=== PATIENT | male | born 1950 | race Caucasian/White ===

== ENCOUNTER 2018-10-18 09:27 | Day surgery (SDC) | payer MEDICARE, BC ==
[~2018-10-18 09:27] MED LIST: Bupivacaine 0.5% 50 ML MDV ONE
[2018-10-18] MEDS: Sodium Chloride 0.9% 1,000 ML IV SCH (10:00)
[2018-10-18] MEDS ORDERED: Propofol 200 MG/20 ML SDV ONE (10:15)
[2018-10-18] MEDS ORDERED: fentaNYL 100 MCG/2 ML SDV ONE (10:16)
[2018-10-18] MEDS ORDERED: Midazolam 1 MG/ML 2 ML SDV ONE (10:16)
[2018-10-18] MEDS ORDERED: Bupivacaine 0.5% 30 ML SDV ONE (10:17)
[2018-10-18 12:40] VITALS: BP 136/90
--- NOTE | 2018-10-18 15:06 | OR ---
DATE OF PROCEDURE: 10/18/2018 PROCEDURE: Ray amputation, right 3rd toe. PREOPERATIVE DIAGNOSIS: Diabetic osteomyelitis. POSTOPERATIVE DIAGNOSIS: Diabetic osteomyelitis. COMPLICATION: None. CHRONOMETER ASSEMBLER: None. ANESTHESIA: Local/MAC. RISKS: Risks, benefits, alternatives, and limitations including, but not limited to infection, bleeding, open wounds. We also discussed the fact that the osteomyelitis might have a false-positive or false-negative margin requiring further revisional surgery. PROCEDURE IN DETAIL: The patient was placed in supine position. DICTATION ENDS HERE Amrit Dykes MD /[id number]
--- NOTE | 2018-10-21 14:38 | OR ---
DATE OF PROCEDURE: 10/18/2018 PROCEDURES: 1. Ray amputation, right 3rd toe. 2. Debridement of 4th toe amputation site (1103). 3. Formation of direct type pedicle graft (23957). COMPLICATIONS: None. CLOTH SHEARER: None. PREOPERATIVE DIAGNOSIS: Diabetic osteomyelitis with open wound. POSTOPERATIVE DIAGNOSIS: Diabetic osteomyelitis with open wound. SURGEON: Amrit Dykes MD INDICATION: A pleasant 68-year-old male who underwent a 4th toe amputation [place]. Unfortunately, this did not heal and the patient subsequently developed an osteomyelitis in the adjoining toe. RISKS: Risks, benefits, alternatives, and limitations including, but not limited to infection, bleeding, and requirement for reoperation due to false-positive or false-negative with respect to the osteomyelitic margin. The patient understands these risks and wished to proceed. PROCEDURE IN DETAIL: The patient was placed in supine position. Using a standard ray type amputation, the right 3rd toe was circumnavigated with a 15 blade. This was carried down with electrocautery to the bone proper. This was then transected without difficulty. The ray was then extended in a distal to proximal margin approximately 1.5 to 2 cm. The metatarsal head was readily identified. This would be amputated using a [employer] total power soft system. The cortex was then removed. The associated pad, ligaments, tendon, etc., were transected under tension. Any bleeding controlled by electrocautery. This was then thoroughly irrigated. The debridement site at the 4th toe was then performed using a 15 blade. Then, a pedicle type flap was then moved into position over the 3rd and 4th toe amputation sites. This was then performed in a rhomboid type fashion. This was then approximated with 3-0 Vicryl and then sutured in with 4-0 Prolene with an interrupted running fashion also using a three-point horizontal mattress suture system. A single piece of quarter- inch iodoform gauze was then placed in this without difficulty. Dressings were applied. The patient tolerated the procedure well. Amrit Dykes MD /[id number]
== END 2018-10-18 12:46 | disposition home or self-care (01) ==
LOC: JP.SDS 09:27
PROVIDERS: ATTEND Surgery
DX: E11.69 Type 2 diabetes mellitus with other specified complication (principal); M86.171 Other acute osteomyelitis, right ankle and foot; E11.40 Type 2 diabetes mellitus with diabetic neuropathy, unspecified; I25.10 Atherosclerotic heart disease of native coronary artery without angina pectoris; I25.9 Chronic ischemic heart disease, unspecified; I25.2 Old myocardial infarction; Z89.429 Acquired absence of other toe(s), unspecified side; Z87.891 Personal history of nicotine dependence
CPT/HCPCS: 15004; 15574; 28820; 87070; 87075; 87077; 87186; 87205; 88305; 88311; J2250; J2704; J3010; J3490; J7030

== ENCOUNTER 2020-06-09 12:42 | Inpatient (IN) | payer MEDICARE, BC ==
[2020-06-09] MEDS ORDERED: Acetaminophen 325 MG Tab PO PRN (14:27)
[2020-06-09] MEDS ORDERED: Sodium Chloride 0.9% 10 ML Syringe FLUSH PRN ×2 (14:28→18:57)
[2020-06-09] MEDS ORDERED: Lactated Ringers 1,000 ML IV ONE (14:30)
[2020-06-09] MEDS ORDERED: Piperacillin/Tazobactam 4.5 GM in Sodium Chloride 0.9% 100 ML IV SCH (14:30)
--- NOTE | 2020-06-09 14:33 | EDM.PDOC ---
ED HPI GENERAL MEDICAL PROBLEM - General Chief Complaint: General Stated Complaint: POSSIBLE INFECTION IN FOOT,FEVER Time Seen by Provider: 06/09/20 14:21 Source of Information: Reports: Patient, Family, RN Notes Reviewed History Limitations: Reports: No Limitations - History of Present Illness INITIAL COMMENTS - FREE TEXT/NARRATIVE: 69-year-old gentleman presents emergency department a complaint of fever chills weakness and some redness that developed on his left foot he has a known history of diabetes mellitus type 2 as well as vascular pathology he has lost all of his toes on his left foot he does have an open ulcer that he has been dealing with for a couple of months he noticed the redness and warmth all really developed over the last 12 hours Left Feet Pain Score (Numeric/FACES): 2 - Related Data Allergies Allergy/AdvReac Type Severity Reaction Status Date / Time No Known Allergies Allergy Verified 06/03/19 11:14 Home Meds: Home Meds Cyanocobalamin (Vitamin B-12) [Vitamin B-12] 1,000 mcg PO DAILY 10/19/14 [History] Lactobacillus Acidophilus [Acidophilus] 1 each PO TID 10/19/14 [History] Lisinopril 2.5 mg PO DAILY 10/19/14 [History] Magnesium 400 mg PO DAILY 10/19/14 [History] Cholecalciferol (Vitamin D3) [Vitamin D3] 1,000 units PO DAILY 10/11/18 [History] Aspirin [Adult Low Dose Aspirin EC] 81 mg PO BID 10/18/18 [History] Gabapentin [Neurontin] 100 mg PO BID 11/07/18 [History] Acetaminophen [Acetaminophen Extra Strength] 500 mg PO Q6H 06/03/19 [History] Ascorbic Acid/Bioflavonoids [C 1,731-[id number]-VI] 1 each PO DAILY 06/03/19 [History] Ferrous Sulfate 325 mg PO DAILY 06/03/19 [History] Multivitamin with Folic Acid [One Daily Essential Tablet] 800 mcg PO DAILY 06/03/19 [History] Vitamin B Complex [Balanced B-50] 1 each PO DAILY 06/03/19 [History] Gabapentin [Neurontin] 300 mg PO BEDTIME 06/09/20 [History] Metoprolol Succinate 25 mg PO DAILY 06/09/20 [History] Pantoprazole [Protonix] 20 mg PO DAILY 06/09/20 [History] cephALEXin [Cephalexin] 500 mg PO TID 06/09/20 [History] Past Medical History HEENT History: Reports: Cataract, Impaired Vision, Other (See Below) Other HEENT History: Bleed behind right eye Cardiovascular History: Reports: CAD, RI, Stents Gastrointestinal History: Reports: Cholelithiasis, GERD, PUD Musculoskeletal History: Reports: Back Pain, Chronic, Osteoarthritis Endocrine/Metabolic History: Reports: Diabetes, Type II Hematologic History: Reports: Blood Transfusion(s) - Infectious Disease History Infectious Disease History: Reports: Chicken Pox, Measles, Mumps - Past Surgical History HEENT Surgical History: Reports: Cataract Surgery, Laser Surgery Cardiovascular Surgical History: Reports: None GI Surgical History: Reports: Bariatric Procedure, Cholecystectomy, Colonoscopy, EGD, Other (See Below) Other GI Surgeries/Procedures: Dexcom 5 blood sugar monitor left abdomen. Colon resection Endocrine Surgical History: Reports: None Neurological Surgical History: Reports: Spinal Fusion, Thoracic Spine Musculoskeletal Surgical History: Reports: Carpal Tunnel, Other (See Below) Other Musculoskeletal Surgeries/Procedures:: Left trigger finger Social & Family History - Tobacco Use Tobacco Use Status *Q: Never Tobacco User - Caffeine Use Caffeine Use: Reports: Coffee ED ROS GENERAL - Review of Systems Review Of Systems: See Below Constitutional: Reports: Fever, Chills, Weakness, Fatigue HEENT: Reports: No Symptoms Respiratory: Reports: No Symptoms Cardiovascular: Reports: No Symptoms GI/Abdominal: Reports: No Symptoms Skin: Reports: Rash, Erythema, Wound ED EXAM, GENERAL - Physical Exam Exam: See Below Free Text/Narrative:: Examination of the left foot there is an erythematous patch encompasses half of the foot and partially up to the ankle on the lateral aspect he does have a chronic wound about the size of $0.50 piece with foul odor present Exam Limited By: No Limitations General Appearance: Alert, WD/WN, No Apparent Distress Respiratory/Chest: No Respiratory Distress, Lungs Clear, Normal Breath Sounds, No Accessory Muscle Use, Chest Non-Tender Cardiovascular: Regular Rate, Rhythm, No Murmur GI/Abdominal: Soft, Non-Tender Course - Vital Signs Last Recorded V/S: Last Vital Signs Temp 101.4 F H 06/09/20 15:27 Pulse 81 06/09/20 13:24 Resp 18 06/09/20 13:24 BP 129/66 06/09/20 13:24 Pulse Ox 95 06/09/20 13:24 - Orders/Labs/Meds Orders: Active Orders 24 hr Category Date Time Status CORONAVIRUS COVID-19 KAREN [MOLEC] Routine Lab 06/09/20 15:23 Received CULTURE BLOOD [BC] Urgent Lab 06/09/20 15:26 Received CULTURE BLOOD [BC] Urgent Lab 06/09/20 15:35 Received Acetaminophen [TylenoL] Med 06/09/20 14:27 Active 650 mg PO Q4H PRN Piperacillin/Tazobactam/Dext [Zosyn in Dextrose Iso- Med 06/09/20 15:30 Active Osmotic] 4.5 gm Premix Bag 1 bag IV Q6H Sodium Chloride 0.9% [Saline Flush] Med 06/09/20 14:28 Active 10 ml FLUSH ASDIRECTED PRN Vancomycin Med 06/09/20 15:00 Active 1 gm IV .PHARMACY TO DOSE Vancomycin 1.3 gm Med 06/10/20 04:00 Active Sodium Chloride 0.9% [Normal Saline] 250 ml IV Q12H Vancomycin 1.5 gm Med 06/09/20 16:00 Active Sodium Chloride 0.9% [Normal Saline] 250 ml IV ONETIME Blood Culture x2 Reflex Set [OM.PC] Urgent Oth 06/09/20 14:28 Ordered Isolation [COMM] Stat Oth 06/09/20 14:27 Ordered Saline Lock Insert [OM.PC] Stat Oth 06/09/20 14:28 Ordered Severe Sepsis Onset Time [OM.PC] Stat Oth 06/09/20 14:28 Ordered Medication Orders Acetaminophen (Tylenol) 650 mg PO Q4H PRN PRN Reason: Fever Greater Than 101 Last Admin: 06/09/20 15:27 Dose: 650 mg Documented by: PARKER Piperacillin/Tazobactam/ (Dextrose 4.5 gm/ Premix) 100 mls @ 200 mls/hr IV Q6H AKI Last Admin: 06/09/20 15:28 Dose: 200 mls/hr Documented by: PARKER Vancomycin HCl 1.5 gm/ Sodium (Chloride) 250 mls @ 175 mls/hr IV ONETIME ONE Stop: 06/09/20 17:25 Last Admin: 06/09/20 16:13 Dose: 175 mls/hr Documented by: PARKER Vancomycin HCl 1.3 gm/ Sodium (Chloride) 250 mls @ 175 mls/hr IV Q12H [facility] Sodium Chloride (Saline Flush) 10 ml FLUSH ASDIRECTED PRN PRN Reason: Keep Vein Open Last Admin: 06/09/20 15:28 Dose: 10 ml Documented by: PARKER Vancomycin HCl (Vancomycin) 1 gm IV .PHARMACY TO DOSE AKI Labs: Laboratory Tests 06/09/20 06/09/20 06/09/20 Range/Units 14:51 15:26 15:26 WBC 15.2 H (4.5-11.0) K/uL RBC 4.18 L (4.30-5.90) M/uL Hgb 13.3 (12.0-15.0) g/dL Hct 39.3 L (40.0-54.0) % MCV 94 (80-98) fL MCH 32 H (27-31) pg MCHC 34 (32-36) % Plt Count 258 (150-400) K/uL Neut % (Auto) 95 H (36-66) % Lymph % (Auto) 2 L (24-44) % [place] % (Auto) 4 (2-6) % Eos % (Auto) 0 L (2-4) % Baso % (Auto) 0 (0-1) % PT 10.9 (9.5-12.0) sec INR 1.00 (0.80-1.20) Sodium (140-148) mmol/L Potassium (3.6-5.2) mmol/L Chloride (100-108) mmol/L Carbon Dioxide (21-32) mmol/L Anion Gap (5.0-14.0) mmol/L BUN (7-18) mg/dL Creatinine (0.8-1.3) mg/dL Est Cr Clr Drug Dosing mL/min Estimated GFR (MDRD) (>60) Glucose (74-106) mg/dL Lactic Acid (0.4-2.0) mmol/L Calcium (8.5-10.1) mg/dL Total Bilirubin (0.2-1.0) mg/dL Direct Bilirubin (0.0-0.2) mg/dL Indirect Bilirubin AST (15-37) U/L ALT (12-78) U/L Alkaline Phosphatase (46-116) U/L Lactate Dehydrogenase (85-227) U/L C-Reactive Protein (0.0-0.3) mg/dL Total Protein (6.4-8.2) g/dL Albumin (3.4-5.0) g/dL Globulin (2.3-3.5) g/dL Albumin/Globulin Ratio (1.2-2.2) Procalcitonin ng/mL SARS CoV-2 RNA Rapid KAREN Negative 06/09/20 06/09/20 06/09/20 Range/Units 15:26 15:26 15:26 WBC (4.5-11.0) K/uL RBC (4.30-5.90) M/uL Hgb (12.0-15.0) g/dL Hct (40.0-54.0) % MCV (80-98) fL MCH (27-31) pg MCHC (32-36) % Plt Count (150-400) K/uL Neut % (Auto) (36-66) % Lymph % (Auto) (24-44) % [place] % (Auto) (2-6) % Eos % (Auto) (2-4) % Baso % (Auto) (0-1) % PT (9.5-12.0) sec INR (0.80-1.20) Sodium 134 L (140-148) mmol/L Potassium 3.7 (3.6-5.2) mmol/L Chloride 99 L (100-108) mmol/L Carbon Dioxide 24 (21-32) mmol/L Anion Gap 14.7 H (5.0-14.0) mmol/L BUN 16 D (7-18) mg/dL Creatinine 1.2 (0.8-1.3) mg/dL Est Cr Clr Drug Dosing 64.67 mL/min Estimated GFR (MDRD) > 60 (>60) Glucose 82 (74-106) mg/dL Lactic Acid 1.4 (0.4-2.0) mmol/L Calcium 9.0 (8.5-10.1) mg/dL Total Bilirubin 1.5 H (0.2-1.0) mg/dL Direct Bilirubin 0.34 H (0.0-0.2) mg/dL Indirect Bilirubin 1.16 AST 34 D (15-37) U/L ALT 30 (12-78) U/L Alkaline Phosphatase 61 (46-116) U/L Lactate Dehydrogenase 170 (85-227) U/L C-Reactive Protein 5.62 H (0.0-0.3) mg/dL Total Protein 6.8 (6.4-8.2) g/dL Albumin 3.2 L (3.4-5.0) g/dL Globulin 3.6 H (2.3-3.5) g/dL Albumin/Globulin Ratio 0.9 L (1.2-2.2) Procalcitonin 29.88 H* ng/mL SARS CoV-2 RNA Rapid KAREN Meds: Medications Generic Name Dose Route Start Last Admin Trade Name Freq PRN Reason Stop Dose Admin Acetaminophen 650 mg 06/09/20 14:27 06/09/20 15:27 Tylenol PO 650 mg Q4H PRN Administration Fever Greater Than 101 Piperacillin/Tazobactam/ 100 mls @ 200 mls/hr 06/09/20 15:30 06/09/20 15:28 Dextrose 4.5 gm/ Premix IV 200 mls/hr Q6H AKI Administration Vancomycin HCl 1.5 gm/ Sodium 250 mls @ 175 mls/hr 06/09/20 16:00 06/09/20 16:13 Chloride IV 06/09/20 17:25 175 mls/hr ONETIME ONE Administration Vancomycin HCl 1.3 gm/ Sodium 250 mls @ 175 mls/hr 06/10/20 04:00 Chloride IV Q12H AKI Sodium Chloride 10 ml 06/09/20 14:28 06/09/20 15:28 Saline Flush FLUSH 10 ml ASDIRECTED PRN Administration Keep Vein Open Vancomycin HCl 1 gm 06/09/20 15:00 Vancomycin IV .PHARMACY TO DOSE AKI Discontinued Medications Generic Name Dose Route Start Last Admin Trade Name Freq PRN Reason Stop Dose Admin Piperacillin Sod/Tazobactam 100 mls @ 100 mls/hr 06/09/20 14:30 Sod 4.5 gm/ Sodium Chloride IV Q6H AKI Lactated Ringer's 1,000 mls @ 999 mls/hr 06/09/20 14:30 06/09/20 15:28 Ringers, Lactated IV 06/09/20 15:30 999 mls/hr BOLUS ONE Administration Departure - Departure Time of Disposition: 16:55 Disposition: Admitted As Inpatient 67 Condition: Fair Clinical Impression: Cellulitis of left foot - Discharge Information Referrals: Na Lao PA [Primary Care Provider] - Forms: ED Department Discharge Sepsis Event Note (ED) - Evaluation Sepsis Screening Result: No Definite Risk - Focused Exam Vital Signs: Vital Signs Temp Temp Pulse Resp BP Pulse Ox 06/09/20 15:27 101.4 F H 06/09/20 13:24 101.4 F H 81 18 129/66 95 - My Orders Last 24 Hours: My Active Orders 06/09/20 14:27 Acetaminophen [TylenoL] 650 mg PO Q4H PRN Isolation [COMM] Stat 06/09/20 14:28 Sodium Chloride 0.9% [Saline Flush] 10 ml FLUSH ASDIRECTED PRN Blood Culture x2 Reflex Set [OM.PC] Urgent Saline Lock Insert [OM.PC] Stat Severe Sepsis Onset Time [OM.PC] Stat 06/09/20 15:00 Vancomycin 1 gm IV .PHARMACY TO DOSE 06/09/20 15:23 CORONAVIRUS COVID-19 KAREN [MOLEC] Routine 06/09/20 15:26 CULTURE BLOOD [BC] Urgent 06/09/20 15:30 Piperacillin/Tazobactam/Dext [Zosyn in Dextrose Iso-Osmotic] 4.5 gm Premix Bag 1 bag IV Q6H 06/09/20 15:35 CULTURE BLOOD [BC] Urgent 06/09/20 16:00 Vancomycin 1.5 gm Sodium Chloride 0.9% [Normal Saline] 250 ml IV ONETIME 06/10/20 04:00 Vancomycin 1.3 gm Sodium Chloride 0.9% [Normal Saline] 250 ml IV Q12H - Assessment/Plan Last 24 Hours: My Active Orders 06/09/20 14:27 Acetaminophen [TylenoL] 650 mg PO Q4H PRN Isolation [COMM] Stat 06/09/20 14:28 Sodium Chloride 0.9% [Saline Flush] 10 ml FLUSH ASDIRECTED PRN Blood Culture x2 Reflex Set [OM.PC] Urgent Saline Lock Insert [OM.PC] Stat Severe Sepsis Onset Time [OM.PC] Stat 06/09/20 15:00 Vancomycin 1 gm IV .PHARMACY TO DOSE 06/09/20 15:23 CORONAVIRUS COVID-19 KAREN [MOLEC] Routine 06/09/20 15:26 CULTURE BLOOD [BC] Urgent 06/09/20 15:30 Piperacillin/Tazobactam/Dext [Zosyn in Dextrose Iso-Osmotic] 4.5 gm Premix Bag 1 bag IV Q6H 06/09/20 15:35 CULTURE BLOOD [BC] Urgent 06/09/20 16:00 Vancomycin 1.5 gm Sodium Chloride 0.9% [Normal Saline] 250 ml IV ONETIME 06/10/20 04:00 Vancomycin 1.3 gm Sodium Chloride 0.9% [Normal Saline] 250 ml IV Q12H Plan: Assessment Acuity = acute Site and laterality = cellulitis left foot complicated patient with known history of diabetes mellitus type 2, coronary artery disease and vascular pathology Etiology = probable bacterial cause Manifestations = fever Location of injury = Home Lab values = WBC elevated 15.8 consistent with leukocytosis, total bilirubin elevated 1.5 consistent hyperbilirubinemia CRP elevated 5.62 and procalcitonin elevated at 29.88 Covid was negative foot x-ray does not show any signs of osteomyelitis Plan Call discussed case with hospitalist on-call at 1640 he kindly agreed to come evaluate patient emergency department for admission, blood cultures are pending antibiotics Zosyn and vancomycin initiated in the emergency department This note was dictated using [employer] voice recognition software please call with any questions on syntax or grammar.
[2020-06-09] MEDS ORDERED: Vancomycin 1 GM SDV IV SCH ×2 (15:00→18:57)
[2020-06-09] MEDS ORDERED: Piperacillin/Tazobactam/Dext 4.5 GM in Premix Bag 1 BAG IV SCH (15:30)
--- NOTE | 2020-06-09 15:44 | CRLCR ---
INDICATION: Open wound, evaluate for osteomyelitis TECHNIQUE: Three views left foot COMPARISON: None FINDINGS: Bones: Alignment is normal. No fractures or bone lesions. The osseous structures are osteopenic. Plantar calcaneal spur. Amputation at the level of the metatarsal bones. Joint spaces: Unremarkable. Soft tissues: Arterial calcifications noted. Large soft tissue plantar ulceration adjacent to the midfoot. IMPRESSION: Large plantar soft tissue ulceration adjacent to the midfoot. The osseous structures are osteopenic. No definitive evidence for osteomyelitis. Dictated by Jack Cedillo MD @ 06/09/2020 3:43:21 PM Dictated by: Jack Cedillo MD @ 06/09/2020 15:43:25 (Electronically Signed)
--- NOTE | 2020-06-09 17:13 | PCM.HP.2 ---
H&P History of Present Illness - General Date of Service: 06/09/20 Admit Problem/Dx: Admission Diagnosis/Problem Admission Diagnosis/Problem Cellulitis Source of Information: Patient, Family, Provider, RN Notes Reviewed History Limitations: Reports: No Limitations - History of Present Illness Initial Comments - Free Text/Narative: Mr. Carrizales is a 69-year-old gentleman who was admitted through the emergency department with weakness and fever, secondary to diabetic foot ulcer on his left foot with cellulitis. He has a known and longstanding history of diabetes as well as peripheral arterial disease. 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 He has had ongoing difficulty with ulcer on the plantar aspect of his left foot. Until recently it had appeared to be healing, but over the past several days has become more erythematous with purulent drainage. Over the last 24 hours he has developed a fever and presented to the emergency department for further evaluation. White blood cell count is elevated and there is obvious infection involving the ulcer in the left foot. X-ray obtained of the foot shows no evidence of osteomyelitis. Left Feet Pain Score (Numeric/FACES): 2 - Related Data Allergies/Adverse Reactions: Allergies Allergy/AdvReac Type Severity Reaction Status Date / Time No Known Allergies Allergy Verified 06/03/19 11:14 Home Medications: Home Meds Cyanocobalamin (Vitamin B-12) [Vitamin B-12] 1,000 mcg PO DAILY 10/19/14 [History] Lactobacillus Acidophilus [Acidophilus] 1 each PO TID 10/19/14 [History] Lisinopril 2.5 mg PO DAILY 10/19/14 [History] Magnesium 400 mg PO DAILY 10/19/14 [History] Cholecalciferol (Vitamin D3) [Vitamin D3] 1,000 units PO DAILY 10/11/18 [History] Aspirin [Adult Low Dose Aspirin EC] 81 mg PO BID 10/18/18 [History] Gabapentin [Neurontin] 100 mg PO BID 11/07/18 [History] Acetaminophen [Acetaminophen Extra Strength] 500 mg PO Q6H 06/03/19 [History] Ascorbic Acid/Bioflavonoids [C [id number]-[id number]] 1 each PO DAILY 06/03/19 [History] Ferrous Sulfate 325 mg PO DAILY 06/03/19 [History] Multivitamin with Folic Acid [One Daily Essential Tablet] 800 mcg PO DAILY 06/03/19 [History] Vitamin B Complex [Balanced B-50] 1 each PO DAILY 06/03/19 [History] Gabapentin [Neurontin] 300 mg PO BEDTIME 06/09/20 [History] Metoprolol Succinate 25 mg PO DAILY 06/09/20 [History] Pantoprazole [Protonix] 20 mg PO DAILY 06/09/20 [History] cephALEXin [Cephalexin] 500 mg PO TID 06/09/20 [History] Past Medical History HEENT History: Reports: Cataract, Impaired Vision, Other (See Below) Other HEENT History: Bleed behind right eye Cardiovascular History: Reports: CAD, SC, Stents Gastrointestinal History: Reports: Cholelithiasis, GERD, PUD Musculoskeletal History: Reports: Back Pain, Chronic, Osteoarthritis Endocrine/Metabolic History: Reports: Diabetes, Type II Hematologic History: Reports: Blood Transfusion(s) - Infectious Disease History Infectious Disease History: Reports: Chicken Pox, Measles, Mumps - Past Surgical History HEENT Surgical History: Reports: Cataract Surgery, Laser Surgery Cardiovascular Surgical History: Reports: None GI Surgical History: Reports: Bariatric Procedure, Cholecystectomy, Colonoscopy, EGD, Other (See Below) Other GI Surgeries/Procedures: Dexcom 5 blood sugar monitor left abdomen. Colon resection Endocrine Surgical History: Reports: None Neurological Surgical History: Reports: Spinal Fusion, Thoracic Spine Musculoskeletal Surgical History: Reports: Carpal Tunnel, Other (See Below) Other Musculoskeletal Surgeries/Procedures:: Left trigger finger Social & Family History - Tobacco Use Tobacco Use Status *Q: Never Tobacco User - Caffeine Use Caffeine Use: Reports: Coffee H&P Review of Systems - Review of Systems: Review Of Systems: See Below General: Reports: Fever, Chills, Malaise, Weakness, Fatigue HEENT: Reports: No Symptoms Pulmonary: Reports: No Symptoms Cardiovascular: Reports: No Symptoms Gastrointestinal: Reports: No Symptoms Genitourinary: Reports: No Symptoms Musculoskeletal: Reports: No Symptoms Skin: Reports: Other (Ulcer plantar aspect of the left foot with inflammation) Psychiatric: Reports: No Symptoms Neurological: Reports: No Symptoms Hematologic/Lymphatic: Reports: No Symptoms Immunologic: Reports: No Symptoms Exam - Exam Exam: See Below - Vital Signs Vital Signs: Last Vital Signs Temp 101.4 F H 06/09/20 15:27 Pulse 81 06/09/20 13:24 Resp 18 06/09/20 13:24 BP 129/66 06/09/20 13:24 Pulse Ox 95 06/09/20 13:24 Weight: 192 lb - Exam Quality Assessment: DVT Prophylaxis General: Alert, Oriented, Cooperative, Moderate Distress HEENT: Conjunctiva Clear, Hearing Intact, Mucosa Moist & Red Bud, Normal Nasal Septum, Posterior Pharynx Clear, Pupils Equal Neck: Supple, Trachea Midline, +2 Carotid Pulse wo Bruit Lungs: Clear to Auscultation, Normal Respiratory Effort Cardiovascular: Regular Rate, Regular Rhythm, Normal S1, Normal S2. No: Systolic Murmur, Diastolic Murmur GI/Abdominal Exam: Soft, Non-Tender, No Organomegaly, No Distention Back Exam: Normal Inspection, Full Range of Motion Extremities: Non-Tender, No Pedal Edema, Other (Ulcer with inflammation plantar aspect left foot. Status post forefoot amputation left foot. Status post amputation 2 toes right foot) Skin: Warm, Other (Ulcer plantar aspect left foot) Neurological: Cranial Nerves Intact, Strength Equal Bilateral, Normal Speech, Normal Tone. No: Sensation Intact (Peripheral neuropathy), Focal Deficit Neuro Extensive - Mental Status: Alert, Oriented x3, Normal Mood/Affect, Normal Cognition, Memory Intact - Patient Data Lab Results Last 24 hrs: Laboratory Results - last 24 hr 06/09/20 06/09/20 06/09/20 Range/Units 14:51 15:26 15:26 WBC 15.2 H (4.5-11.0) K/uL RBC 4.18 L (4.30-5.90) M/uL Hgb 13.3 (12.0-15.0) g/dL Hct 39.3 L (40.0-54.0) % MCV 94 (80-98) fL MCH 32 H (27-31) pg MCHC 34 (32-36) % Plt Count 258 (150-400) K/uL Neut % (Auto) 95 H (36-66) % Lymph % (Auto) 2 L (24-44) % [place] % (Auto) 4 (2-6) % Eos % (Auto) 0 L (2-4) % Baso % (Auto) 0 (0-1) % PT 10.9 (9.5-12.0) sec INR 1.00 (0.80-1.20) Sodium (140-148) mmol/L Potassium (3.6-5.2) mmol/L Chloride (100-108) mmol/L Carbon Dioxide (21-32) mmol/L Anion Gap (5.0-14.0) mmol/L BUN (7-18) mg/dL Creatinine (0.8-1.3) mg/dL Est Cr Clr Drug Dosing mL/min Estimated GFR (MDRD) (>60) Glucose (74-106) mg/dL Lactic Acid (0.4-2.0) mmol/L Calcium (8.5-10.1) mg/dL Total Bilirubin (0.2-1.0) mg/dL Direct Bilirubin (0.0-0.2) mg/dL Indirect Bilirubin AST (15-37) U/L ALT (12-78) U/L Alkaline Phosphatase (46-116) U/L Lactate Dehydrogenase (85-227) U/L C-Reactive Protein (0.0-0.3) mg/dL Total Protein (6.4-8.2) g/dL Albumin (3.4-5.0) g/dL Globulin (2.3-3.5) g/dL Albumin/Globulin Ratio (1.2-2.2) Procalcitonin ng/mL SARS CoV-2 RNA Rapid KAREN Negative 06/09/20 06/09/20 06/09/20 Range/Units 15:26 15:26 15:26 WBC (4.5-11.0) K/uL RBC (4.30-5.90) M/uL Hgb (12.0-15.0) g/dL Hct (40.0-54.0) % MCV (80-98) fL MCH (27-31) pg MCHC (32-36) % Plt Count (150-400) K/uL Neut % (Auto) (36-66) % Lymph % (Auto) (24-44) % [place] % (Auto) (2-6) % Eos % (Auto) (2-4) % Baso % (Auto) (0-1) % PT (9.5-12.0) sec INR (0.80-1.20) Sodium 134 L (140-148) mmol/L Potassium 3.7 (3.6-5.2) mmol/L Chloride 99 L (100-108) mmol/L Carbon Dioxide 24 (21-32) mmol/L Anion Gap 14.7 H (5.0-14.0) mmol/L BUN 16 D (7-18) mg/dL Creatinine 1.2 (0.8-1.3) mg/dL Est Cr Clr Drug Dosing 64.67 mL/min Estimated GFR (MDRD) > 60 (>60) Glucose 82 (74-106) mg/dL Lactic Acid 1.4 (0.4-2.0) mmol/L Calcium 9.0 (8.5-10.1) mg/dL Total Bilirubin 1.5 H (0.2-1.0) mg/dL Direct Bilirubin 0.34 H (0.0-0.2) mg/dL Indirect Bilirubin 1.16 AST 34 D (15-37) U/L ALT 30 (12-78) U/L Alkaline Phosphatase 61 (46-116) U/L Lactate Dehydrogenase 170 (85-227) U/L C-Reactive Protein 5.62 H (0.0-0.3) mg/dL Total Protein 6.8 (6.4-8.2) g/dL Albumin 3.2 L (3.4-5.0) g/dL Globulin 3.6 H (2.3-3.5) g/dL Albumin/Globulin Ratio 0.9 L (1.2-2.2) Procalcitonin 29.88 H* ng/mL SARS CoV-2 RNA Rapid KAREN Result Diagrams: 06/09/20 15:26 06/09/20 15:26 Sepsis Event Note - Evaluation Sepsis Screening Result: No Definite Risk - Focused Exam Vital Signs: Vital Signs Temp Temp Pulse Resp BP Pulse Ox 06/09/20 15:27 101.4 F H 06/09/20 13:24 101.4 F H 81 18 129/66 95 *Q Meaningful Use (ADM) - VTE Risk Assess *Q Each Risk Factor Represents 1 Point: Obesity ( BMI > 25 kg/m2) Total Score 1 Point Risk Factors: 1 Each Risk Factor Represents 2 Points: Age 60 - 74 Years Total Score 2 Point Risk Factors: 2 Each Risk Factor Represents 3 Points: None Total Score 3 Point Risk Factors: 0 Each Risk Factor Represents 5 Points: None Total Score 5 Point Risk Factors: 0 Venous Thromboembolism Risk Factor Score *Q: 3 Problem List Initiated/Reviewed/Updated: Yes Orders Last 24hrs: Active Orders 24 hr Category Date Time Status Patient Status Manage Transfer [TRANSFER] Routine ADT 06/09/20 17:01 Ordered CORONAVIRUS COVID-19 KAREN [MOLEC] Routine Lab 06/09/20 15:23 Received CULTURE BLOOD [BC] Urgent Lab 06/09/20 15:26 Received CULTURE BLOOD [BC] Urgent Lab 06/09/20 15:35 Received Acetaminophen [TylenoL] Med 06/09/20 14:27 Active 650 mg PO Q4H PRN Piperacillin/Tazobactam/Dext [Zosyn in Dextrose Iso- Med 06/09/20 15:30 Active Osmotic] 4.5 gm Premix Bag 1 bag IV Q6H Sodium Chloride 0.9% [Saline Flush] Med 06/09/20 14:28 Active 10 ml FLUSH ASDIRECTED PRN Vancomycin Med 06/09/20 15:00 Active 1 gm IV .PHARMACY TO DOSE Vancomycin 1.3 gm Med 06/10/20 04:00 Active Sodium Chloride 0.9% [Normal Saline] 250 ml IV Q12H Vancomycin 1.5 gm Med 06/09/20 16:00 Active Sodium Chloride 0.9% [Normal Saline] 250 ml IV ONETIME Blood Culture x2 Reflex Set [OM.PC] Urgent Oth 06/09/20 14:28 Ordered Isolation [COMM] Stat Oth 06/09/20 14:27 Ordered Saline Lock Insert [OM.PC] Stat Oth 06/09/20 14:28 Ordered Severe Sepsis Onset Time [OM.PC] Stat Oth 06/09/20 14:28 Ordered Resuscitation Status Routine Resus Stat 06/09/20 17:04 Ordered Medication Orders Acetaminophen (Tylenol) 650 mg PO Q4H PRN PRN Reason: Fever Greater Than 101 Last Admin: 06/09/20 15:27 Dose: 650 mg Documented by: PARKER Piperacillin/Tazobactam/ (Dextrose 4.5 gm/ Premix) 100 mls @ 200 mls/hr IV Q6H AKI Last Admin: 06/09/20 15:28 Dose: 200 mls/hr Documented by: PARKER Vancomycin HCl 1.5 gm/ Sodium (Chloride) 250 mls @ 175 mls/hr IV ONETIME ONE Stop: 06/09/20 17:25 Last Admin: 06/09/20 16:13 Dose: 175 mls/hr Documented by: PARKER Vancomycin HCl 1.3 gm/ Sodium (Chloride) 250 mls @ 175 mls/hr IV Q12H [facility] Sodium Chloride (Saline Flush) 10 ml FLUSH ASDIRECTED PRN PRN Reason: Keep Vein Open Last Admin: 06/09/20 15:28 Dose: 10 ml Documented by: PARKER Vancomycin HCl (Vancomycin) 1 gm IV .PHARMACY TO DOSE AKI Assessment/Plan Comment:: ASSESSMENT AND PLAN DIABETIC ULCER LEFT FOOT WITH INFECTION-evidence of cellulitis as well as sepsis. IV fluids given in the emergency department per sepsis protocol, he is hemodynamically stable. -Blood cultures pending -Initiate antibiotic therapy with vancomycin and Zosyn -MRI in a.m. to evaluate for osteomyelitis -Consult Dr. Nicholson for surgical follow-up and possible debridement DIABETES MELLITUS-currently well managed with use of an insulin pump -Patient will manage insulin pump CORONARY ARTERY DISEASE-stable and asymptomatic -Continue outpatient medications MAINTENANCE ISSUES -DVT prophylaxis; Lovenox 40 mg subcu daily -GI prophylaxis; not indicated -Rbody catheter; not indicated -Nutrition; consistent carbohydrate diet, n.p.o. after midnight -Nicotine dependence; not required CODE STATUS-FULL CODE ADMISSION STATUS-patient will be admitted to inpatient status, expect at least a 2 night hospital stay for evaluation and management of problems as outlined above. At the time of this admission I do not reasonably expected evaluation and management of this problem will require more than a 96 hour hospital stay. DISPOSITION-anticipate discharge to home after the hospital stay. - Mortality Measure Prognosis:: Good
[2020-06-09] MEDS ORDERED: Enoxaparin 40 MG/0.4 ML Syringe SUBCUT SCH (18:57)
[2020-06-09] MEDS ORDERED: Polyethylene Glycol 3350 Powder 17 GM Packet PO PRN (18:57)
[2020-06-09] MEDS ORDERED: Ondansetron 4 MG/2 ML SDV IV PRN (18:57)
[2020-06-09] MEDS: Sodium Chloride 0.9% 1,000 ML IV SCH (20:21)
[2020-06-09] MEDS: Gabapentin 300 MG Cap PO SCH (20:22)
[2020-06-09] MEDS: Gabapentin 100 MG Cap PO SCH (20:22)
[2020-06-09] MEDS: Aspirin 81 MG Tab.EC PO SCH (20:22)
[2020-06-09] MEDS: Lactobacillus Rhamnosus GG (Probiotic) Cap PO SCH (20:22)
[2020-06-09] MEDS: Piperacillin/Tazobactam 3.375 GM in Sodium Chloride 0.9% 50 ML IV SCH (22:04)
[2020-06-10] MEDS: Piperacillin/Tazobactam 3.375 GM in Sodium Chloride 0.9% 50 ML IV SCH (03:02)
[2020-06-10] MEDS ORDERED: Vancomycin 1.3 GM in Sodium Chloride 0.9% 250 ML IV SCH (04:00)
[2020-06-10] MEDS: Sodium Chloride 0.9% 1,000 ML IV SCH (04:04)
[2020-06-10] MEDS: Pantoprazole 40 MG Tab.CR PO SCH ×2 (07:24→14:19)
[2020-06-10] MEDS ORDERED: Bupivacaine 0.5% 50 ML MDV ONE (08:17)
[2020-06-10] MEDS ORDERED: Lidocaine 1% with EPINEPHrine 1:100,000 50 ML MDV ONE (08:17)
[2020-06-10] MEDS ORDERED: Meropenem 500 MG SDV ONE (08:19)
[2020-06-10] MEDS ORDERED: fentaNYL 100 MCG/2 ML SDV ONE (08:20)
[2020-06-10] MEDS ORDERED: Propofol 200 MG/20 ML SDV ONE ×2 (08:21→13:25)
[2020-06-10] MEDS ORDERED: Midazolam 1 MG/ML 2 ML SDV ONE (08:21)
[2020-06-10] MEDS ORDERED: Pantoprazole 40 MG Tab.CR PO SCH (09:00)
[2020-06-10] MEDS ORDERED: Gadoteridol 279.3 MG/ML 15 ML SDV IV SCH (10:00)
[2020-06-10] MEDS: Lisinopril 2.5 MG Tab PO SCH (10:08)
[2020-06-10] MEDS: Piperacillin/Tazobactam/Dext 3.375 GM in Premix Bag 1 BAG IV SCH ×3 (10:08→21:17)
[2020-06-10] MEDS: Metoprolol Succinate 25 MG Tab.ER PO SCH (10:09)
--- NOTE | 2020-06-10 10:28 | CRLMR ---
HISTORY: Diabetic foot ulcer. Evaluate for abscess or osteomyelitis. TECHNIQUE: Routine foot protocol including use of 15 cc of ProHance. FINDINGS: Comparison is made to plain film study dated 06/09/2020. This study demonstrates apparent soft tissue wound along the plantar and lateral aspect of the midfoot. There has been a amputation through the Lisfranc`s joint. MR examination demonstrates moderate motion artifact. There is diffuse increased T2 signal intensity throughout the soft tissues presumably representing edema from cellulitis. No soft tissue fluid collection is noted to suggest abscess. There is patchy marrow edema in the cuboid bone which is in the vicinity of the suspected soft tissue wound and is consistent with osteomyelitis. The other midfoot and hindfoot bones are intact and unremarkable. IMPRESSION: Limited study due to motion artifact. There is evidence for cellulitis as well as osteomyelitis of the cuboid bone. No drainable abscess is identified. Dictated by Benny Wyatt MD @ Jun 10 2020 10:21AM Signed by Dr. Benny Wyatt @ Jun 10 2020 10:28AM
--- NOTE | 2020-06-10 10:45 | PCM.PN ---
- General Info Date of Service: 06/10/20 Subjective Update: There were no acute events overnight. Patient reports mild pain in the left foot but thinks this is a little better than yesterday. Erythema is reported to be much improved. He did not have any fevers overnight. Cultures are negative so far. MRI was completed but images are not available for review as of yet. Surgical debridement is planned for later in the day. Blood sugars have been well controlled. Functional Status: Reports: Pain Controlled - Review of Systems General: Denies: Fever Musculoskeletal: Reports: Foot Pain - Patient Data Vitals - Most Recent: Last Vital Signs Temp 35.9 C L 06/10/20 10:42 Pulse 70 06/10/20 10:42 Resp 18 06/10/20 10:42 BP 121/61 06/10/20 10:42 Pulse Ox 97 06/10/20 10:42 Weight - Most Recent: 87.09 kg I&O - Last 24 Hours: Intake & Output 06/09/20 06/10/20 06/10/20 22:59 06:59 14:59 Intake Total 480 350 Balance 480 350 Lab Results Last 24 Hours: Laboratory Results - last 24 hr 06/09/20 06/09/20 06/09/20 Range/Units 14:51 15:23 15:26 WBC (4.5-11.0) K/uL RBC (4.30-5.90) M/uL Hgb (12.0-15.0) g/dL Hct (40.0-54.0) % MCV (80-98) fL MCH (27-31) pg MCHC (32-36) % Plt Count (150-400) K/uL Neut % (Auto) (36-66) % Lymph % (Auto) (24-44) % [place] % (Auto) (2-6) % Eos % (Auto) (2-4) % Baso % (Auto) (0-1) % PT 10.9 (9.5-12.0) sec INR 1.00 (0.80-1.20) Sodium (140-148) mmol/L Potassium (3.6-5.2) mmol/L Chloride (100-108) mmol/L Carbon Dioxide (21-32) mmol/L Anion Gap (5.0-14.0) mmol/L BUN (7-18) mg/dL Creatinine (0.8-1.3) mg/dL Est Cr Clr Drug Dosing mL/min Estimated GFR (MDRD) (>60) Glucose (74-106) mg/dL Lactic Acid (0.4-2.0) mmol/L Calcium (8.5-10.1) mg/dL Magnesium (1.8-2.4) mg/dL Total Bilirubin (0.2-1.0) mg/dL Direct Bilirubin (0.0-0.2) mg/dL Indirect Bilirubin AST (15-37) U/L ALT (12-78) U/L Alkaline Phosphatase (46-116) U/L Lactate Dehydrogenase (85-227) U/L C-Reactive Protein (0.0-0.3) mg/dL Total Protein (6.4-8.2) g/dL Albumin (3.4-5.0) g/dL Globulin (2.3-3.5) g/dL Albumin/Globulin Ratio (1.2-2.2) Procalcitonin ng/mL SARS-CoV-2 RNA (KAREN) Negative (NEGATIVE) SARS CoV-2 RNA Rapid KAREN Negative 06/09/20 06/09/20 06/09/20 Range/Units 15:26 15:26 15:26 WBC 15.2 H (4.5-11.0) K/uL RBC 4.18 L (4.30-5.90) M/uL Hgb 13.3 (12.0-15.0) g/dL Hct 39.3 L (40.0-54.0) % MCV 94 (80-98) fL MCH 32 H (27-31) pg MCHC 34 (32-36) % Plt Count 258 (150-400) K/uL Neut % (Auto) 95 H (36-66) % Lymph % (Auto) 2 L (24-44) % [place] % (Auto) 4 (2-6) % Eos % (Auto) 0 L (2-4) % Baso % (Auto) 0 (0-1) % PT (9.5-12.0) sec INR (0.80-1.20) Sodium 134 L (140-148) mmol/L Potassium 3.7 (3.6-5.2) mmol/L Chloride 99 L (100-108) mmol/L Carbon Dioxide 24 (21-32) mmol/L Anion Gap 14.7 H (5.0-14.0) mmol/L BUN 16 D (7-18) mg/dL Creatinine 1.2 (0.8-1.3) mg/dL Est Cr Clr Drug Dosing 64.67 mL/min Estimated GFR (MDRD) > 60 (>60) Glucose 82 (74-106) mg/dL Lactic Acid (0.4-2.0) mmol/L Calcium 9.0 (8.5-10.1) mg/dL Magnesium (1.8-2.4) mg/dL Total Bilirubin 1.5 H (0.2-1.0) mg/dL Direct Bilirubin 0.34 H (0.0-0.2) mg/dL Indirect Bilirubin 1.16 AST 34 D (15-37) U/L ALT 30 (12-78) U/L Alkaline Phosphatase 61 (46-116) U/L Lactate Dehydrogenase 170 (85-227) U/L C-Reactive Protein 5.62 H (0.0-0.3) mg/dL Total Protein 6.8 (6.4-8.2) g/dL Albumin 3.2 L (3.4-5.0) g/dL Globulin 3.6 H (2.3-3.5) g/dL Albumin/Globulin Ratio 0.9 L (1.2-2.2) Procalcitonin 29.88 H* ng/mL SARS-CoV-2 RNA (KAREN) (NEGATIVE) SARS CoV-2 RNA Rapid KAREN 06/09/20 06/10/20 06/10/20 Range/Units 15:26 06:13 06:13 WBC 13.7 H (4.5-11.0) K/uL RBC 3.91 L (4.30-5.90) M/uL Hgb 12.1 (12.0-15.0) g/dL Hct 37.5 L (40.0-54.0) % MCV 96 (80-98) fL MCH 31 (27-31) pg MCHC 32 (32-36) % Plt Count 244 (150-400) K/uL Neut % (Auto) 88 H (36-66) % Lymph % (Auto) 4 L (24-44) % [place] % (Auto) 7 H (2-6) % Eos % (Auto) 1 L (2-4) % Baso % (Auto) 0 (0-1) % PT (9.5-12.0) sec INR (0.80-1.20) Sodium 135 L (140-148) mmol/L Potassium 3.9 (3.6-5.2) mmol/L Chloride 103 (100-108) mmol/L Carbon Dioxide 26 (21-32) mmol/L Anion Gap 9.9 (5.0-14.0) mmol/L BUN 20 H (7-18) mg/dL Creatinine 1.1 (0.8-1.3) mg/dL Est Cr Clr Drug Dosing 70.55 mL/min Estimated GFR (MDRD) > 60 (>60) Glucose 138 H (74-106) mg/dL Lactic Acid 1.4 (0.4-2.0) mmol/L Calcium 8.2 L (8.5-10.1) mg/dL Magnesium 2.1 (1.8-2.4) mg/dL Total Bilirubin 0.9 (0.2-1.0) mg/dL Direct Bilirubin (0.0-0.2) mg/dL Indirect Bilirubin AST 50 H (15-37) U/L ALT 32 (12-78) U/L Alkaline Phosphatase 50 (46-116) U/L Lactate Dehydrogenase (85-227) U/L C-Reactive Protein (0.0-0.3) mg/dL Total Protein 5.9 L (6.4-8.2) g/dL Albumin 2.5 L (3.4-5.0) g/dL Globulin 3.4 (2.3-3.5) g/dL Albumin/Globulin Ratio 0.7 L (1.2-2.2) Procalcitonin ng/mL SARS-CoV-2 RNA (KAREN) (NEGATIVE) SARS CoV-2 RNA Rapid KAREN Med Orders - Current: Current Medications Acetaminophen (Tylenol) 650 mg PO Q4H PRN PRN Reason: Pain (Mild 1-3)/fever Aspirin (Halfprin) 81 mg PO BID [facility] Last Admin: 06/09/20 20:22 Dose: 81 mg Documented by: Enoxaparin Sodium (Lovenox) 40 mg SUBCUT Q24H [facility] Ferrous Sulfate (Ferrous Sulfate) 325 mg PO DAILY [facility] Gabapentin (Neurontin) 300 mg PO BEDTIME [facility] Last Admin: 06/09/20 20:22 Dose: 300 mg Documented by: Gabapentin (Neurontin) 100 mg PO BID [facility] Last Admin: 06/09/20 20:22 Dose: 100 mg Documented by: Vancomycin HCl 1.25 gm/ Sodium (Chloride) 250 mls @ 166.667 mls/hr IV Q12H [facility] Last Admin: 06/10/20 04:03 Dose: 166.667 mls/hr Documented by: Piperacillin/Tazobactam/ (Dextrose 3.375 gm/ Premix) 50 mls @ 100 mls/hr IV Q6H [facility] Last Admin: 06/10/20 10:08 Dose: 100 mls/hr Documented by: Lactobacillus Rhamnosus (Culturelle) 1 cap PO TID [facility] Last Admin: 06/09/20 20:22 Dose: 1 cap Documented by: Lisinopril (Prinivil) 2.5 mg PO DAILY [facility] Last Admin: 06/10/20 10:08 Dose: 2.5 mg Documented by: Magnesium Oxide (Magnesium Oxide) 400 mg PO DAILY [facility] Metoprolol Succinate (Toprol Xl) 25 mg PO DAILY [facility] Last Admin: 06/10/20 10:09 Dose: 25 mg Documented by: Ondansetron HCl (Zofran) 4 mg IV Q4H PRN PRN Reason: Nausea/Vomiting Pantoprazole Sodium (Protonix) 40 mg PO DAILY@0730 [facility] Last Admin: 06/10/20 07:24 Dose: Not Given Documented by: Polyethylene Glycol (Miralax) 17 gm PO DAILY PRN PRN Reason: Constipation Sodium Chloride (Saline Flush) 10 ml FLUSH ASDIRECTED PRN PRN Reason: Keep Vein Open Discontinued Medications Acetaminophen (Tylenol) 650 mg PO Q4H PRN PRN Reason: Fever Greater Than 101 Last Admin: 06/09/20 15:27 Dose: 650 mg Documented by: Bupivacaine HCl (Marcaine 0.5%) Confirm Administered Dose 50 ml .ROUTE .STK-MED ONE Stop: 06/10/20 08:18 Enoxaparin Sodium (Lovenox) 40 mg SUBCUT DAILY [facility] Last Admin: 06/09/20 20:22 Dose: 40 mg Documented by: Fentanyl (Sublimaze) Confirm Administered Dose 100 mcg .ROUTE .STK-MED ONE Stop: 06/10/20 08:21 Gadoteridol (Prohance) 15 ml IV .A DIRECTED [facility] Stop: 06/10/20 10:01 Last Admin: 06/10/20 09:44 Dose: 15 ml Documented by: Piperacillin Sod/Tazobactam (Sod 4.5 gm/ Sodium Chloride) 100 mls @ 100 mls/hr IV Q6H [facility] Last Admin: 06/09/20 19:52 Dose: Not Given Documented by: Lactated Ringer's (Ringers, Lactated) 1,000 mls @ 999 mls/hr IV BOLUS ONE Stop: 06/09/20 15:30 Last Admin: 06/09/20 15:28 Dose: 999 mls/hr Documented by: Piperacillin/Tazobactam/ (Dextrose 4.5 gm/ Premix) 100 mls @ 200 mls/hr IV Q6H [facility] Last Admin: 06/09/20 15:28 Dose: 200 mls/hr Documented by: Vancomycin HCl 1.5 gm/ Sodium (Chloride) 250 mls @ 175 mls/hr IV ONETIME ONE Stop: 06/09/20 17:25 Last Admin: 06/09/20 16:13 Dose: 175 mls/hr Documented by: Sodium Chloride (Normal Saline) 1,000 mls @ 125 mls/hr IV ASDIRECTED [facility] Last Admin: 06/10/20 04:04 Dose: 125 mls/hr Documented by: Piperacillin Sod/Tazobactam (Sod 3.375 gm/ Sodium Chloride) 50 mls @ 100 mls/hr IV Q6H [facility] Last Admin: 06/10/20 03:02 Dose: 100 mls/hr Documented by: Linezolid (Zyvox) Confirm Administered Dose 300 mls @ as directed .ROUTE .STK- MED ONE Stop: 06/10/20 08:20 Lidocaine/Epinephrine (Xylocaine 1% With Epinephrine 1:100,000) Confirm Administered Dose 50 ml .ROUTE .STK-MED ONE Stop: 06/10/20 08:18 Meropenem (Merrem) Confirm Administered Dose 500 mg .ROUTE .STK-MED ONE Stop: 06/10/20 08:20 Midazolam HCl (Versed 1 Mg/Ml) Confirm Administered Dose 2 mg .ROUTE .STK-MED ONE Stop: 06/10/20 08:22 Pantoprazole Sodium (Protonix) 20 mg PO DAILY [facility] Propofol (Diprivan 20 Ml) Confirm Administered Dose 200 mg .ROUTE .STK-MED ONE Stop: 06/10/20 08:22 Sodium Chloride (Saline Flush) 10 ml FLUSH ASDIRECTED PRN PRN Reason: Keep Vein Open Last Admin: 06/09/20 15:28 Dose: 10 ml Documented by: Vancomycin HCl (Vancomycin) 1 gm IV .PHARMACY TO DOSE AKI Vancomycin HCl (Vancomycin) 1 gm IV .PHARMACY TO DOSE AKI Stop: 06/10/20 18:58 - Exam Quality Assessment: No: Supplemental Oxygen General: Alert, Oriented, Cooperative, No Acute Distress Lungs: Normal Respiratory Effort GI/Abdominal Exam: Soft, No Distention Extremities: No Pedal Edema Skin: Warm, Dry Wound/Incisions: Drainage (mild ), Erythema Improving, Other (2 cm bottom of left foot with mild surrounding erythema ) Psy/Mental Status: Alert, Normal Affect Sepsis Event Note - Evaluation Sepsis Screening Result: No Definite Risk - Focused Exam Vital Signs: Vital Signs Temp Pulse Pulse Resp BP BP Pulse Ox 06/10/20 10:42 35.9 C L 70 18 121/61 97 06/10/20 10:09 64 124/91 H 06/10/20 10:08 124/91 H 06/10/20 06:52 35.7 C L 64 16 124/61 97 06/10/20 03:00 35.1 C L 53 L 14 115/63 96 - Problem List Review Problem List Initiated/Reviewed/Updated: Yes - My Orders Last 24 Hours: My Active Orders 06/10/20 10:43 oxyCODONE 5 mg PO Q4H PRN 06/10/20 11:00 Sodium Chloride 0.9% [Normal Saline] 1,000 ml IV ASDIRECTED 06/11/20 05:00 BASIC METABOLIC PANEL,BMP [CHEM] Timed CBC W/O DIFF,HEMOGRAM [HEME] Timed (1) - Plan Plan:: ASSESSMENT AND PLAN DIABETIC ULCER LEFT FOOT WITH INFECTION-sepsis has resolved. White blood cell count is slightly better. No fevers. MRI pending. Surgical debridement planned. -Follow-up cultures -Continue vancomycin and Pip/Tazo -Follow-up MRI -Symptomatic management of pain -Consult Dr. Nicholson for surgical follow-up and possible debridement INSULIN-DEPENDENT DIABETES MELLITUS-currently well managed with use of an insulin pump. -Patient will manage insulin pump CORONARY ARTERY DISEASE-stable and asymptomatic. -Continue outpatient medications MAINTENANCE ISSUES -DVT prophylaxis; Lovenox 40 mg subcu daily -GI prophylaxis; not indicated -Brody catheter; not indicated -Nutrition; consistent carbohydrate diet, n.p.o. after midnight DISPOSITION-anticipate discharge to home after the hospital stay. Franky Cochran MD
[2020-06-10] MEDS ORDERED: Sodium Chloride 0.9% 1,000 ML IV SCH (11:00)
[2020-06-10] MEDS ORDERED: INSULIN PUMP SCH (11:15)
[2020-06-10] MEDS ORDERED: Lidocaine 1% 50 ML MDV ONE (13:14)
[2020-06-10] MEDS: Aspirin 81 MG Tab.EC PO SCH ×2 (14:17→21:12)
[2020-06-10] MEDS: Magnesium Oxide 400 MG Tab PO SCH (14:18)
[2020-06-10] MEDS: Ferrous Sulfate 325 MG Tab PO SCH (14:18)
[2020-06-10] MEDS: Gabapentin 100 MG Cap PO SCH ×2 (14:18→21:12)
[2020-06-10] MEDS: Lactobacillus Rhamnosus GG (Probiotic) Cap PO SCH ×3 (14:18→21:11)
[2020-06-10] MEDS: Acetaminophen 325 MG Tab PO PRN ×2 (15:27→21:28)
[2020-06-10] MEDS: oxyCODONE 5 MG Tab PO PRN ×2 (16:43→21:27)
[2020-06-10] MEDS: Insulin Lispro 100 Unit/ML 3 ML KwikPen SUBCUT SCH ×3 (16:45→21:10)
[2020-06-10] MEDS: Enoxaparin 40 MG/0.4 ML Syringe SUBCUT SCH (17:47)
[2020-06-10] MEDS ORDERED: Insulin Glargine,Human Rec. Analog 100 Units/ML 3 ML Pen SUBCUT SCH (21:00)
[2020-06-10] MEDS: Gabapentin 300 MG Cap PO SCH (21:12)
[2020-06-11] MEDS: Piperacillin/Tazobactam/Dext 3.375 GM in Premix Bag 1 BAG IV SCH ×4 (02:38→21:34)
[2020-06-11] MEDS: Insulin Lispro 100 Unit/ML 3 ML KwikPen SUBCUT SCH ×7 (07:55→21:36)
[2020-06-11] MEDS: Pantoprazole 40 MG Tab.CR PO SCH (07:55)
[2020-06-11] MEDS: Gabapentin 100 MG Cap PO SCH ×2 (09:20→21:34)
[2020-06-11] MEDS: Ferrous Sulfate 325 MG Tab PO SCH (09:20)
[2020-06-11] MEDS: Aspirin 81 MG Tab.EC PO SCH ×2 (09:20→21:35)
[2020-06-11] MEDS: Magnesium Oxide 400 MG Tab PO SCH (09:20)
[2020-06-11] MEDS: Lactobacillus Rhamnosus GG (Probiotic) Cap PO SCH ×3 (09:20→21:34)
[2020-06-11] MEDS: Metoprolol Succinate 25 MG Tab.ER PO SCH (09:21)
[2020-06-11] MEDS: Lisinopril 2.5 MG Tab PO SCH (09:24)
--- NOTE | 2020-06-11 10:54 | PCM.PN ---
- General Info Date of Service: 06/11/20 Subjective Update: Mr. Carrizales has been stable since yesterday, no further temperature elevations and vital signs have remained within desired range. Glucose control not as good now that he is off of his insulin pump. Final culture results from debridement of the ulcer pending at this time. Functional Status: Reports: Tolerating Diet, Urinating - Review of Systems General: Reports: No Symptoms Pulmonary: Reports: No Symptoms Cardiovascular: Reports: No Symptoms Gastrointestinal: Reports: No Symptoms - Patient Data Vitals - Most Recent: Last Vital Signs Temp 95.2 F L 06/11/20 07:00 Pulse 66 06/11/20 09:21 Resp 18 06/11/20 07:00 BP 135/64 06/11/20 09:24 Pulse Ox 97 06/11/20 07:00 Weight - Most Recent: 192 lb 0.009 oz I&O - Last 24 Hours: Intake & Output 06/10/20 06/11/20 06/11/20 22:59 06:59 14:59 Intake Total 350 1368 480 Balance 350 1368 480 Lab Results Last 24 Hours: Laboratory Results - last 24 hr 06/10/20 06/10/20 06/11/20 Range/Units 16:30 21:22 04:10 WBC 8.4 (4.5-11.0) K/uL RBC 3.76 L (4.30-5.90) M/uL Hgb 11.8 L (12.0-15.0) g/dL Hct 35.9 L (40.0-54.0) % MCV 96 (80-98) fL MCH 31 (27-31) pg MCHC 33 (32-36) % Plt Count 220 (150-400) K/uL Sodium (140-148) mmol/L Potassium (3.6-5.2) mmol/L Chloride (100-108) mmol/L Carbon Dioxide (21-32) mmol/L Anion Gap (5.0-14.0) mmol/L BUN (7-18) mg/dL Creatinine (0.8-1.3) mg/dL Est Cr Clr Drug Dosing mL/min Estimated GFR (MDRD) (>60) Glucose (74-106) mg/dL POC Glucose 310 H 358 H (74-106) MG/DL Calcium (8.5-10.1) mg/dL 06/11/20 06/11/20 Range/Units 04:10 07:30 WBC (4.5-11.0) K/uL RBC (4.30-5.90) M/uL Hgb (12.0-15.0) g/dL Hct (40.0-54.0) % MCV (80-98) fL MCH (27-31) pg MCHC (32-36) % Plt Count (150-400) K/uL Sodium 134 L (140-148) mmol/L Potassium 4.4 (3.6-5.2) mmol/L Chloride 102 (100-108) mmol/L Carbon Dioxide 22 (21-32) mmol/L Anion Gap 14.4 H (5.0-14.0) mmol/L BUN 17 (7-18) mg/dL Creatinine 1.1 (0.8-1.3) mg/dL Est Cr Clr Drug Dosing 70.64 mL/min Estimated GFR (MDRD) > 60 (>60) Glucose 221 H (74-106) mg/dL POC Glucose 237 H (74-106) MG/DL Calcium 8.1 L (8.5-10.1) mg/dL Adrián Results Last 24 Hours: Microbiology 06/10/20 13:22 Anaerobic Culture - Preliminary Foot, Left NO GROWTH AFTER 1 DAY 06/10/20 13:22 Gram Stain - Final Foot, Left Wound Culture - Preliminary Anaerobic Culture - Preliminary NO GROWTH AFTER 1 DAY 06/10/20 13:22 Gram Stain - Final Foot, Left Wound Culture - Preliminary NO GROWTH AFTER 1 DAY 06/10/20 13:22 Gram Stain - Final Foot, Left Wound Culture - Preliminary Anaerobic Culture - Preliminary NO GROWTH AFTER 1 DAY 06/09/20 15:35 Aerobic Blood Culture - Preliminary Blood - Arm, Left NO GROWTH AFTER 1 DAY Anaerobic Blood Culture - Preliminary NO GROWTH AFTER 1 DAY 06/09/20 15:26 Aerobic Blood Culture - Preliminary Blood - Venous - Iv Start NO GROWTH AFTER 1 DAY Anaerobic Blood Culture - Preliminary NO GROWTH AFTER 1 DAY Med Orders - Current: Current Medications Acetaminophen (Tylenol) 650 mg PO Q4H PRN PRN Reason: Pain (Mild 1-3)/fever Last Admin: 06/10/20 21:28 Dose: 650 mg Documented by: Aspirin (Halfprin) 81 mg PO BID [facility] Last Admin: 06/11/20 09:20 Dose: 81 mg Documented by: Enoxaparin Sodium (Lovenox) 40 mg SUBCUT Q24H [facility] Last Admin: 06/10/20 17:47 Dose: 40 mg Documented by: Ferrous Sulfate (Ferrous Sulfate) 325 mg PO DAILY [facility] Last Admin: 06/11/20 09:20 Dose: 325 mg Documented by: Gabapentin (Neurontin) 300 mg PO BEDTIME [facility] Last Admin: 06/10/20 21:12 Dose: 300 mg Documented by: Gabapentin (Neurontin) 100 mg PO BID [facility] Last Admin: 06/11/20 09:20 Dose: 100 mg Documented by: Vancomycin HCl 1.25 gm/ Sodium (Chloride) 250 mls @ 166.667 mls/hr IV Q12H [facility] Last Admin: 06/11/20 04:16 Dose: 166.667 mls/hr Documented by: Piperacillin/Tazobactam/ (Dextrose 3.375 gm/ Premix) 50 mls @ 100 mls/hr IV Q6H [facility] Last Admin: 06/11/20 09:19 Dose: 100 mls/hr Documented by: Insulin Glargine (Lantus Solostar) 15 units SUBCUT BEDTIME [facility] Last Admin: 06/10/20 21:11 Dose: 15 units Documented by: Insulin Human Lispro (Humalog) 5 unit SUBCUT TIDMEALS [facility] Last Admin: 06/11/20 07:55 Dose: 5 units Documented by: Insulin Human Lispro (Humalog) 0 unit SUBCUT QIDACANDBED [facility]; Protocol Last Admin: 06/11/20 07:56 Dose: 9 units Documented by: Lactobacillus Rhamnosus (Culturelle) 1 cap PO TID [facility] Last Admin: 06/11/20 09:20 Dose: 1 cap Documented by: Lisinopril (Prinivil) 2.5 mg PO DAILY [facility] Last Admin: 06/11/20 09:24 Dose: 2.5 mg Documented by: Magnesium Oxide (Magnesium Oxide) 400 mg PO DAILY [facility] Last Admin: 06/11/20 09:20 Dose: 400 mg Documented by: Metoprolol Succinate (Toprol Xl) 25 mg PO DAILY [facility] Last Admin: 06/11/20 09:21 Dose: 25 mg Documented by: Ondansetron HCl (Zofran) 4 mg IV Q4H PRN PRN Reason: Nausea/Vomiting Oxycodone HCl (Oxycodone) 5 mg PO Q4H PRN PRN Reason: Pain (moderate 4-6) Last Admin: 06/10/20 21:27 Dose: 5 mg Documented by: Pantoprazole Sodium (Protonix) 40 mg PO DAILY@0730 [facility] Last Admin: 06/11/20 07:55 Dose: 40 mg Documented by: Polyethylene Glycol (Miralax) 17 gm PO DAILY PRN PRN Reason: Constipation Sodium Chloride (Saline Flush) 10 ml FLUSH ASDIRECTED PRN PRN Reason: Keep Vein Open Discontinued Medications Acetaminophen (Tylenol) 650 mg PO Q4H PRN PRN Reason: Fever Greater Than 101 Last Admin: 06/09/20 15:27 Dose: 650 mg Documented by: Bupivacaine HCl (Marcaine 0.5%) Confirm Administered Dose 50 ml .ROUTE .STK-MED ONE Stop: 06/10/20 08:18 Enoxaparin Sodium (Lovenox) 40 mg SUBCUT DAILY [facility] Last Admin: 06/09/20 20:22 Dose: 40 mg Documented by: Fentanyl (Sublimaze) Confirm Administered Dose 100 mcg .ROUTE .STK-MED ONE Stop: 06/10/20 08:21 Gadoteridol (Prohance) 15 ml IV .A DIRECTED [facility] Stop: 06/10/20 10:01 Last Admin: 06/10/20 09:44 Dose: 15 ml Documented by: Piperacillin Sod/Tazobactam (Sod 4.5 gm/ Sodium Chloride) 100 mls @ 100 mls/hr IV Q6H [facility] Last Admin: 06/09/20 19:52 Dose: Not Given Documented by: Lactated Ringer's (Ringers, Lactated) 1,000 mls @ 999 mls/hr IV BOLUS ONE Stop: 06/09/20 15:30 Last Admin: 06/09/20 15:28 Dose: 999 mls/hr Documented by: Piperacillin/Tazobactam/ (Dextrose 4.5 gm/ Premix) 100 mls @ 200 mls/hr IV Q6H [facility] Last Admin: 06/09/20 15:28 Dose: 200 mls/hr Documented by: Vancomycin HCl 1.5 gm/ Sodium (Chloride) 250 mls @ 175 mls/hr IV ONETIME ONE Stop: 06/09/20 17:25 Last Admin: 06/09/20 16:13 Dose: 175 mls/hr Documented by: Sodium Chloride (Normal Saline) 1,000 mls @ 125 mls/hr IV ASDIRECTED [facility] Last Admin: 06/10/20 04:04 Dose: 125 mls/hr Documented by: Piperacillin Sod/Tazobactam (Sod 3.375 gm/ Sodium Chloride) 50 mls @ 100 mls/hr IV Q6H [facility] Last Admin: 06/10/20 03:02 Dose: 100 mls/hr Documented by: Linezolid (Zyvox) Confirm Administered Dose 300 mls @ as directed .ROUTE .STK- MED ONE Stop: 06/10/20 08:20 Sodium Chloride (Normal Saline) 1,000 mls @ 25 mls/hr IV ASDIRECTED [facility] Last Admin: 06/10/20 21:30 Dose: 25 mls/hr Documented by: Lidocaine HCl (Xylocaine 1%) Confirm Administered Dose 50 ml .ROUTE .STK-MED ONE Stop: 06/10/20 13:15 Lidocaine/Epinephrine (Xylocaine 1% With Epinephrine 1:100,000) Confirm Administered Dose 50 ml .ROUTE .STK-MED ONE Stop: 06/10/20 08:18 Meropenem (Merrem) Confirm Administered Dose 500 mg .ROUTE .STK-MED ONE Stop: 06/10/20 08:20 Midazolam HCl (Versed 1 Mg/Ml) Confirm Administered Dose 2 mg .ROUTE .STK-MED ONE Stop: 06/10/20 08:22 Pantoprazole Sodium (Protonix) 20 mg PO DAILY [facility] Insulin Pump (Ptom) 0 each .XX ASDIRECTED [facility] Propofol (Diprivan 20 Ml) Confirm Administered Dose 200 mg .ROUTE .STK-MED ONE Stop: 06/10/20 08:22 Propofol (Diprivan 20 Ml) Confirm Administered Dose 200 mg .ROUTE .STK-MED ONE Stop: 06/10/20 13:26 Sodium Chloride (Saline Flush) 10 ml FLUSH ASDIRECTED PRN PRN Reason: Keep Vein Open Last Admin: 06/09/20 15:28 Dose: 10 ml Documented by: Vancomycin HCl (Vancomycin) 1 gm IV .PHARMACY TO DOSE [facility] Vancomycin HCl (Vancomycin) 1 gm IV .PHARMACY TO DOSE [facility] Stop: 06/10/20 18:58 - Exam Quality Assessment: DVT Prophylaxis General: Alert, Oriented, Cooperative, Mild Distress Lungs: Clear to Auscultation, Normal Respiratory Effort Cardiovascular: Regular Rate, Regular Rhythm, No Murmurs GI/Abdominal Exam: Soft, Non-Tender, No Organomegaly, No Distention Extremities: Other (Dressing in place left foot) Sepsis Event Note - Evaluation Sepsis Screening Result: No Definite Risk - Focused Exam Vital Signs: Vital Signs Temp Pulse Pulse Resp BP BP Pulse Ox 06/11/20 09:24 135/64 06/11/20 09:21 66 135/64 06/11/20 07:00 95.2 F L 54 L 18 125/69 97 06/11/20 03:04 95.5 F L 52 L 15 122/66 97 06/10/20 23:00 96.1 F L 56 L 15 145/72 H 99 - Problem List Review Problem List Initiated/Reviewed/Updated: Yes - My Orders Last 24 Hours: My Active Orders 06/10/20 18:00 Enoxaparin [Lovenox] 40 mg SUBCUT Q24H 06/11/20 10:49 Convert IV to Saline Lock [OM.PC] Routine 06/12/20 03:30 VANCOMYCIN TROUGH [CHEM] Timed - Plan Plan:: ASSESSMENT AND PLAN DIABETIC ULCER LEFT FOOT WITH INFECTION-status post surgical debridement done yesterday. MRI shows evidence of osteomyelitis -Follow-up cultures -Continue vancomycin and Pip/Tazo, pending culture results -Symptomatic management of pain -Surgical follow-up per Dr. 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 Sugars have been in the 200 range since that time. -Increased dose of long-acting insulin -Continue current dosing of insulin with meals and sliding scale -4 times daily glucometers CORONARY ARTERY DISEASE-stable and asymptomatic. -Continue outpatient medications MAINTENANCE ISSUES -DVT prophylaxis; Lovenox 40 mg subcu daily -GI prophylaxis; not indicated -Brody catheter; not indicated -Nutrition; consistent carbohydrate diet, n.p.o. after midnight DISPOSITION-anticipate discharge to home after the hospital stay.
[2020-06-11] MEDS: Enoxaparin 40 MG/0.4 ML Syringe SUBCUT SCH (17:54)
[2020-06-11] MEDS: Insulin Glargine,Human Rec. Analog 100 Units/ML 3 ML Pen SUBCUT SCH (21:35)
[2020-06-11] MEDS: Gabapentin 300 MG Cap PO SCH (21:47)
[2020-06-12] MEDS: Piperacillin/Tazobactam/Dext 3.375 GM in Premix Bag 1 BAG IV SCH ×4 (03:23→22:22)
[2020-06-12] MEDS: Insulin Lispro 100 Unit/ML 3 ML KwikPen SUBCUT SCH ×7 (07:27→22:06)
[2020-06-12] MEDS: Pantoprazole 40 MG Tab.CR PO SCH (07:29)
[2020-06-12] MEDS: Lisinopril 2.5 MG Tab PO SCH (09:23)
[2020-06-12] MEDS: Magnesium Oxide 400 MG Tab PO SCH (09:23)
[2020-06-12] MEDS: Ferrous Sulfate 325 MG Tab PO SCH (09:24)
[2020-06-12] MEDS: Aspirin 81 MG Tab.EC PO SCH ×2 (09:24→22:05)
[2020-06-12] MEDS: Metoprolol Succinate 25 MG Tab.ER PO SCH (09:24)
[2020-06-12] MEDS: Gabapentin 100 MG Cap PO SCH ×2 (09:24→22:05)
[2020-06-12] MEDS: Lactobacillus Rhamnosus GG (Probiotic) Cap PO SCH ×3 (09:24→22:04)
--- NOTE | 2020-06-12 12:06 | PN ---
DATE OF SERVICE: 06/10/2020 A 69-year-old male with longstanding diabetes and diabetic foot problems presenting with increasing drainage from his left foot on the plantar aspect. There is a large ulcer in that area. 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 The patient was admitted overnight with IV antibiotics and will be receiving MRI of the foot this morning. Otherwise, the plan will be to proceed with debridement and drainage of the infected foot later this morning. Potential risks including further bleeding and infection were reviewed. The possibility for major amputation upcoming is also gone over, and the patient wishes to proceed. Barron Nicholson MD /[id number]
--- NOTE | 2020-06-12 12:43 | PN ---
DATE OF SERVICE: 06/11/2020 The patient has been afebrile with stable vital signs. White count has also normalized, and the redness on the lateral aspect of the foot has decreased quite a bit. The wound is clean. Dressing changes will begin, and I think we will let him the shoe that he has from home that displaces the weight down to the heel, and can shower p.r.n. The cultures are all growing a mixture of gram-positive cocci and rods and would continue the present antibiotics consisting of Zosyn and vancomycin per Dr. Pritchard, awaiting C and S results. We will likely have a PICC line placed in order to maintain some IV antibiotics. The blood sugar is a little bit high and the insulin dosage may be adjusted per Dr. Pritchard. Barron Nicholson MD /[id number]
--- NOTE | 2020-06-12 13:24 | PN ---
DATE OF SERVICE: 06/12/2020 The patient has been afebrile with stable vital signs, appeared to be overall doing well. The amount of discomfort in the foot has decreased and drainage minimum. He is getting around with the shoe that is designed to put weight on the heel, and otherwise, we will continue dressing changes, present IV antibiotics. He will likely be discharged home on Sunday with a PICC line having been placed and antibiotics based on the sensitivities that should be available from the intraoperative cultures by that time. Barron Nicholson MD /[id number]
--- NOTE | 2020-06-12 13:49 | PCM.PN ---
- General Info Date of Service: 06/12/20 Subjective Update: Mr. Carrizales has been stable over the last 24 hours. Discomfort in the foot is improved and fairly minimal. Vital signs have been stable and he has remained afebrile. Final wound cultures and sensitivities are pending Functional Status: Reports: Tolerating Diet, Ambulating, Urinating - Review of Systems General: Reports: No Symptoms Pulmonary: Reports: No Symptoms Cardiovascular: Reports: No Symptoms Gastrointestinal: Reports: No Symptoms Genitourinary: Reports: No Symptoms - Patient Data Vitals - Most Recent: Last Vital Signs Temp 94.8 F L 06/12/20 11:00 Pulse 57 L 06/12/20 11:00 Resp 15 06/12/20 11:00 BP 137/75 06/12/20 11:00 Pulse Ox 97 06/12/20 11:00 Weight - Most Recent: 192 lb 0.009 oz I&O - Last 24 Hours: Intake & Output 06/11/20 06/12/20 06/12/20 22:59 06:59 14:59 Intake Total 300 550 Balance 300 550 Lab Results Last 24 Hours: Laboratory Results - last 24 hr 06/11/20 06/11/20 06/12/20 Range/Units 16:39 21:25 03:30 POC Glucose 350 H 213 H (74-106) MG/DL Vancomycin Trough 13.5 (10.0-20.0) ug/mL 06/12/20 06/12/20 Range/Units 07:30 11:37 POC Glucose 208 H 223 H (74-106) MG/DL Vancomycin Trough (10.0-20.0) ug/mL Adrián Results Last 24 Hours: Microbiology 06/10/20 13:22 Gram Stain - Final Foot, Left Wound Culture - Preliminary Anaerobic Culture - Preliminary NO GROWTH AFTER 2 DAYS 06/10/20 13:22 Anaerobic Culture - Preliminary Foot, Left NO GROWTH AFTER 2 DAYS 06/10/20 13:22 Gram Stain - Final Foot, Left Wound Culture - Preliminary 06/10/20 13:22 Gram Stain - Final Foot, Left Wound Culture - Preliminary Anaerobic Culture - Preliminary NO GROWTH AFTER 1 DAY 06/09/20 15:26 Aerobic Blood Culture - Preliminary Blood - Venous - Iv Start NO GROWTH AFTER 2 DAYS Anaerobic Blood Culture - Preliminary NO GROWTH AFTER 2 DAYS 06/09/20 15:35 Aerobic Blood Culture - Preliminary Blood - Arm, Left NO GROWTH AFTER 2 DAYS Anaerobic Blood Culture - Preliminary NO GROWTH AFTER 2 DAYS Med Orders - Current: Current Medications Acetaminophen (Tylenol) 650 mg PO Q4H PRN PRN Reason: Pain (Mild 1-3)/fever Last Admin: 06/10/20 21:28 Dose: 650 mg Documented by: Aspirin (Halfprin) 81 mg PO BID [facility] Last Admin: 06/12/20 09:24 Dose: 81 mg Documented by: Enoxaparin Sodium (Lovenox) 40 mg SUBCUT Q24H [facility] Last Admin: 06/11/20 17:54 Dose: 40 mg Documented by: Ferrous Sulfate (Ferrous Sulfate) 325 mg PO DAILY [facility] Last Admin: 06/12/20 09:24 Dose: 325 mg Documented by: Gabapentin (Neurontin) 300 mg PO BEDTIME [facility] Last Admin: 06/11/20 21:47 Dose: 300 mg Documented by: Gabapentin (Neurontin) 100 mg PO BID [facility] Last Admin: 06/12/20 09:24 Dose: 100 mg Documented by: Piperacillin/Tazobactam/ (Dextrose 3.375 gm/ Premix) 50 mls @ 100 mls/hr IV Q6H [facility] Last Admin: 06/12/20 09:24 Dose: 100 mls/hr Documented by: Vancomycin HCl 1.4 gm/ Sodium (Chloride) 250 mls @ 166.667 mls/hr IV Q12H [facility] Insulin Glargine (Lantus Solostar) 20 units SUBCUT BEDTIME [facility] Last Admin: 06/11/20 21:35 Dose: 20 units Documented by: Insulin Human Lispro (Humalog) 5 unit SUBCUT TIDMEALS [facility] Last Admin: 06/12/20 11:44 Dose: 5 units Documented by: Insulin Human Lispro (Humalog) 0 unit SUBCUT QIDACANDBED [facility]; Protocol Last Admin: 06/12/20 11:44 Dose: 4 units Documented by: Lactobacillus Rhamnosus (Culturelle) 1 cap PO TID [facility] Last Admin: 06/12/20 09:24 Dose: 1 cap Documented by: Lisinopril (Prinivil) 2.5 mg PO DAILY [facility] Last Admin: 06/12/20 09:23 Dose: 2.5 mg Documented by: Magnesium Oxide (Magnesium Oxide) 400 mg PO DAILY [facility] Last Admin: 06/12/20 09:23 Dose: 400 mg Documented by: Metoprolol Succinate (Toprol Xl) 25 mg PO DAILY [facility] Last Admin: 06/12/20 09:24 Dose: 25 mg Documented by: Ondansetron HCl (Zofran) 4 mg IV Q4H PRN PRN Reason: Nausea/Vomiting Oxycodone HCl (Oxycodone) 5 mg PO Q4H PRN PRN Reason: Pain (moderate 4-6) Last Admin: 06/10/20 21:27 Dose: 5 mg Documented by: Pantoprazole Sodium (Protonix) 40 mg PO DAILY@0730 [facility] Last Admin: 06/12/20 07:29 Dose: 40 mg Documented by: Polyethylene Glycol (Miralax) 17 gm PO DAILY PRN PRN Reason: Constipation Sodium Chloride (Saline Flush) 10 ml FLUSH ASDIRECTED PRN PRN Reason: Keep Vein Open Discontinued Medications Acetaminophen (Tylenol) 650 mg PO Q4H PRN PRN Reason: Fever Greater Than 101 Last Admin: 06/09/20 15:27 Dose: 650 mg Documented by: Bupivacaine HCl (Marcaine 0.5%) Confirm Administered Dose 50 ml .ROUTE .STK-MED ONE Stop: 06/10/20 08:18 Enoxaparin Sodium (Lovenox) 40 mg SUBCUT DAILY [facility] Last Admin: 06/09/20 20:22 Dose: 40 mg Documented by: Fentanyl (Sublimaze) Confirm Administered Dose 100 mcg .ROUTE .STK-MED ONE Stop: 06/10/20 08:21 Gadoteridol (Prohance) 15 ml IV .A DIRECTED [facility] Stop: 06/10/20 10:01 Last Admin: 06/10/20 09:44 Dose: 15 ml Documented by: Piperacillin Sod/Tazobactam (Sod 4.5 gm/ Sodium Chloride) 100 mls @ 100 mls/hr IV Q6H [facility] Last Admin: 06/09/20 19:52 Dose: Not Given Documented by: Lactated Ringer's (Ringers, Lactated) 1,000 mls @ 999 mls/hr IV BOLUS ONE Stop: 06/09/20 15:30 Last Admin: 06/09/20 15:28 Dose: 999 mls/hr Documented by: Piperacillin/Tazobactam/ (Dextrose 4.5 gm/ Premix) 100 mls @ 200 mls/hr IV Q6H [facility] Last Admin: 06/09/20 15:28 Dose: 200 mls/hr Documented by: Vancomycin HCl 1.5 gm/ Sodium (Chloride) 250 mls @ 175 mls/hr IV ONETIME ONE Stop: 06/09/20 17:25 Last Admin: 06/09/20 16:13 Dose: 175 mls/hr Documented by: Sodium Chloride (Normal Saline) 1,000 mls @ 125 mls/hr IV ASDIRECTED [facility] Last Admin: 06/10/20 04:04 Dose: 125 mls/hr Documented by: Piperacillin Sod/Tazobactam (Sod 3.375 gm/ Sodium Chloride) 50 mls @ 100 mls/hr IV Q6H [facility] Last Admin: 06/10/20 03:02 Dose: 100 mls/hr Documented by: Vancomycin HCl 1.25 gm/ Sodium (Chloride) 250 mls @ 166.667 mls/hr IV Q12H [facility] Last Admin: 06/12/20 04:41 Dose: 166.667 mls/hr Documented by: Linezolid (Zyvox) Confirm Administered Dose 300 mls @ as directed .ROUTE .STK- MED ONE Stop: 06/10/20 08:20 Sodium Chloride (Normal Saline) 1,000 mls @ 25 mls/hr IV ASDIRECTED [facility] Last Admin: 06/10/20 21:30 Dose: 25 mls/hr Documented by: Insulin Glargine (Lantus Solostar) 15 units SUBCUT BEDTIME [facility] Last Admin: 06/10/20 21:11 Dose: 15 units Documented by: Lidocaine HCl (Xylocaine 1%) Confirm Administered Dose 50 ml .ROUTE .STK-MED ONE Stop: 06/10/20 13:15 Lidocaine/Epinephrine (Xylocaine 1% With Epinephrine 1:100,000) Confirm Administered Dose 50 ml .ROUTE .STK-MED ONE Stop: 06/10/20 08:18 Meropenem (Merrem) Confirm Administered Dose 500 mg .ROUTE .STK-MED ONE Stop: 06/10/20 08:20 Midazolam HCl (Versed 1 Mg/Ml) Confirm Administered Dose 2 mg .ROUTE .STK-MED ONE Stop: 06/10/20 08:22 Pantoprazole Sodium (Protonix) 20 mg PO DAILY [facility] Insulin Pump (Ptom) 0 each .XX ASDIRECTED [facility] Propofol (Diprivan 20 Ml) Confirm Administered Dose 200 mg .ROUTE .STK-MED ONE Stop: 06/10/20 08:22 Propofol (Diprivan 20 Ml) Confirm Administered Dose 200 mg .ROUTE .STK-MED ONE Stop: 06/10/20 13:26 Sodium Chloride (Saline Flush) 10 ml FLUSH ASDIRECTED PRN PRN Reason: Keep Vein Open Last Admin: 06/09/20 15:28 Dose: 10 ml Documented by: Vancomycin HCl (Vancomycin) 1 gm IV .PHARMACY TO DOSE [facility] Vancomycin HCl (Vancomycin) 1 gm IV .PHARMACY TO DOSE [facility] Stop: 06/10/20 18:58 - Exam General: Alert, Oriented, Cooperative, Mild Distress Lungs: Clear to Auscultation, Normal Respiratory Effort Cardiovascular: Regular Rate, Regular Rhythm, No Murmurs GI/Abdominal Exam: Soft, Non-Tender, No Organomegaly, No Distention Extremities: Other (Dressing in place left foot) Sepsis Event Note - Evaluation Sepsis Screening Result: No Definite Risk - Focused Exam Vital Signs: Vital Signs Temp Pulse Pulse Resp BP BP Pulse Ox 06/12/20 11:00 94.8 F L 57 L 15 137/75 97 06/12/20 09:24 80 145/74 H 06/12/20 09:23 145/74 H 06/12/20 07:00 95.3 F L 54 L 16 145/74 H 97 06/12/20 03:21 95.5 F L 58 L 16 123/69 97 - Problem List Review Problem List Initiated/Reviewed/Updated: Yes - My Orders Last 24 Hours: My Active Orders 06/11/20 21:00 Insulin Glarg,Human.Rec.Analog [LantUS Solostar] 20 units SUBCUT BEDTIME 06/12/20 16:00 Vancomycin 1.4 gm Sodium Chloride 0.9% [Normal Saline] 250 ml IV Q12H - Plan Plan:: ASSESSMENT AND PLAN DIABETIC ULCER LEFT FOOT WITH INFECTION-status post surgical debridement. MRI shows evidence of osteomyelitis -Wound and blood cultures pending -Continue vancomycin and Pip/Tazo, pending culture results -Symptomatic management of pain -Surgical follow-up per Dr. 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 Sugars have been in the 200 range since that time. -Increased dose of long-acting insulin -Continue current dosing of insulin with meals and sliding scale -4 times daily glucometers CORONARY ARTERY DISEASE-stable and asymptomatic. -Continue outpatient medications MAINTENANCE ISSUES -DVT prophylaxis; Lovenox 40 mg subcu daily -GI prophylaxis; not indicated -Brody catheter; not indicated -Nutrition; consistent carbohydrate diet, n.p.o. after midnight DISPOSITION-anticipate discharge to home after the hospital stay.
[2020-06-12] MEDS: Vancomycin 1.4 GM in Sodium Chloride 0.9% 250 ML IV SCH (15:54)
[2020-06-12] MEDS: Enoxaparin 40 MG/0.4 ML Syringe SUBCUT SCH (17:20)
[2020-06-12] MEDS: Gabapentin 300 MG Cap PO SCH (22:05)
[2020-06-12] MEDS: Insulin Glargine,Human Rec. Analog 100 Units/ML 3 ML Pen SUBCUT SCH (22:06)
[2020-06-13] MEDS: Piperacillin/Tazobactam/Dext 3.375 GM in Premix Bag 1 BAG IV SCH ×4 (02:56→22:03)
[2020-06-13] MEDS: Vancomycin 1.4 GM in Sodium Chloride 0.9% 250 ML IV SCH ×2 (03:35→15:49)
[2020-06-13] MEDS: Pantoprazole 40 MG Tab.CR PO SCH (08:15)
[2020-06-13] MEDS: Insulin Lispro 100 Unit/ML 3 ML KwikPen SUBCUT SCH ×7 (08:16→21:43)
[2020-06-13] MEDS: Ferrous Sulfate 325 MG Tab PO SCH (09:58)
[2020-06-13] MEDS: Aspirin 81 MG Tab.EC PO SCH ×2 (09:58→21:38)
[2020-06-13] MEDS: Magnesium Oxide 400 MG Tab PO SCH (09:58)
[2020-06-13] MEDS: Lactobacillus Rhamnosus GG (Probiotic) Cap PO SCH ×3 (09:58→21:38)
[2020-06-13] MEDS: Gabapentin 100 MG Cap PO SCH ×2 (09:59→21:38)
[2020-06-13] MEDS: Lisinopril 2.5 MG Tab PO SCH (09:59)
[2020-06-13] MEDS: Metoprolol Succinate 25 MG Tab.ER PO SCH (10:00)
--- NOTE | 2020-06-13 11:24 | PCM.PN ---
- General Info Date of Service: 06/13/20 Subjective Update: Mr. Carrizales is remained stable over the past 24 hours. Vital signs have been within desired range and he has remained afebrile. Is ambulating in the hallway with use of a walker and minimal weightbearing on his left foot. Functional Status: Reports: Tolerating Diet, Ambulating, Urinating - Review of Systems General: Reports: No Symptoms Pulmonary: Reports: No Symptoms Cardiovascular: Reports: No Symptoms Gastrointestinal: Reports: No Symptoms - Patient Data Vitals - Most Recent: Last Vital Signs Temp 95 F L 06/13/20 10:40 Pulse 58 L 06/13/20 10:40 Resp 16 06/13/20 10:40 BP 147/73 H 06/13/20 10:40 Pulse Ox 98 06/13/20 10:40 Weight - Most Recent: 192 lb 0.009 oz I&O - Last 24 Hours: Intake & Output 06/12/20 06/13/20 06/13/20 22:59 06:59 14:59 Intake Total 300 1100 Balance 300 1100 Lab Results Last 24 Hours: Laboratory Results - last 24 hr 06/12/20 06/12/20 06/12/20 Range/Units 11:37 16:58 21:00 POC Glucose 223 H 211 H 263 H (74-106) MG/DL 06/13/20 Range/Units 07:30 POC Glucose 183 H (74-106) MG/DL Adrián Results Last 24 Hours: Microbiology 06/10/20 13:22 Gram Stain - Final Foot, Left Wound Culture - Preliminary (Mrsa) Staphylococcus Aureus Citrobacter Braakii Gram Positive Rods 06/10/20 13:22 Anaerobic Culture - Final Foot, Left NO GROWTH AFTER 3 DAYS 06/10/20 13:22 Gram Stain - Final Foot, Left Wound Culture - Final (Mrsa) Staphylococcus Aureus Citrobacter Braakii Gram Positive Rods Anaerobic Culture - Final NO GROWTH AFTER 3 DAYS 06/10/20 13:22 Gram Stain - Final Foot, Left Wound Culture - Preliminary (Mrsa) Staphylococcus Aureus Citrobacter Braakii Gram Positive Rods Anaerobic Culture - Final NO GROWTH AFTER 3 DAYS 06/09/20 15:26 Aerobic Blood Culture - Preliminary Blood - Venous - Iv Start NO GROWTH AFTER 3 DAYS Anaerobic Blood Culture - Preliminary NO GROWTH AFTER 3 DAYS 06/09/20 15:35 Aerobic Blood Culture - Preliminary Blood - Arm, Left NO GROWTH AFTER 3 DAYS Anaerobic Blood Culture - Preliminary NO GROWTH AFTER 3 DAYS Med Orders - Current: Current Medications Acetaminophen (Tylenol) 650 mg PO Q4H PRN PRN Reason: Pain (Mild 1-3)/fever Last Admin: 06/10/20 21:28 Dose: 650 mg Documented by: Aspirin (Halfprin) 81 mg PO BID [facility] Last Admin: 06/13/20 09:58 Dose: 81 mg Documented by: Enoxaparin Sodium (Lovenox) 40 mg SUBCUT Q24H [facility] Last Admin: 06/12/20 17:20 Dose: 40 mg Documented by: Ferrous Sulfate (Ferrous Sulfate) 325 mg PO DAILY [facility] Last Admin: 06/13/20 09:58 Dose: 325 mg Documented by: Gabapentin (Neurontin) 300 mg PO BEDTIME [facility] Last Admin: 06/12/20 22:05 Dose: 300 mg Documented by: Gabapentin (Neurontin) 100 mg PO BID [facility] Last Admin: 06/13/20 09:59 Dose: 100 mg Documented by: Piperacillin/Tazobactam/ (Dextrose 3.375 gm/ Premix) 50 mls @ 100 mls/hr IV Q6H [facility] Last Admin: 06/13/20 09:57 Dose: 100 mls/hr Documented by: Vancomycin HCl 1.4 gm/ Sodium (Chloride) 250 mls @ 166.667 mls/hr IV Q12H [facility] Last Admin: 06/13/20 03:35 Dose: 166.667 mls/hr Documented by: Insulin Glargine (Lantus Solostar) 20 units SUBCUT BEDTIME [facility] Last Admin: 06/12/20 22:06 Dose: 20 units Documented by: Insulin Human Lispro (Humalog) 5 unit SUBCUT TIDMEALS [facility] Last Admin: 06/13/20 08:16 Dose: 5 units Documented by: Insulin Human Lispro (Humalog) 0 unit SUBCUT QIDACANDBED [facility]; Protocol Last Admin: 06/13/20 08:17 Dose: 2 units Documented by: Lactobacillus Rhamnosus (Culturelle) 1 cap PO TID [facility] Last Admin: 06/13/20 09:58 Dose: 1 cap Documented by: Lisinopril (Prinivil) 2.5 mg PO DAILY [facility] Last Admin: 06/13/20 09:59 Dose: 2.5 mg Documented by: Magnesium Oxide (Magnesium Oxide) 400 mg PO DAILY [facility] Last Admin: 06/13/20 09:58 Dose: 400 mg Documented by: Metoprolol Succinate (Toprol Xl) 25 mg PO DAILY [facility] Last Admin: 06/13/20 10:00 Dose: 25 mg Documented by: Ondansetron HCl (Zofran) 4 mg IV Q4H PRN PRN Reason: Nausea/Vomiting Oxycodone HCl (Oxycodone) 5 mg PO Q4H PRN PRN Reason: Pain (moderate 4-6) Last Admin: 06/10/20 21:27 Dose: 5 mg Documented by: Pantoprazole Sodium (Protonix) 40 mg PO DAILY@0730 [facility] Last Admin: 06/13/20 08:15 Dose: 40 mg Documented by: Polyethylene Glycol (Miralax) 17 gm PO DAILY PRN PRN Reason: Constipation Sodium Chloride (Saline Flush) 10 ml FLUSH ASDIRECTED PRN PRN Reason: Keep Vein Open Discontinued Medications Acetaminophen (Tylenol) 650 mg PO Q4H PRN PRN Reason: Fever Greater Than 101 Last Admin: 06/09/20 15:27 Dose: 650 mg Documented by: Bupivacaine HCl (Marcaine 0.5%) Confirm Administered Dose 50 ml .ROUTE .STK-MED ONE Stop: 06/10/20 08:18 Enoxaparin Sodium (Lovenox) 40 mg SUBCUT DAILY [facility] Last Admin: 06/09/20 20:22 Dose: 40 mg Documented by: Fentanyl (Sublimaze) Confirm Administered Dose 100 mcg .ROUTE .STK-MED ONE Stop: 06/10/20 08:21 Gadoteridol (Prohance) 15 ml IV .A DIRECTED [facility] Stop: 06/10/20 10:01 Last Admin: 06/10/20 09:44 Dose: 15 ml Documented by: Piperacillin Sod/Tazobactam (Sod 4.5 gm/ Sodium Chloride) 100 mls @ 100 mls/hr IV Q6H [facility] Last Admin: 06/09/20 19:52 Dose: Not Given Documented by: Lactated Ringer's (Ringers, Lactated) 1,000 mls @ 999 mls/hr IV BOLUS ONE Stop: 06/09/20 15:30 Last Admin: 06/09/20 15:28 Dose: 999 mls/hr Documented by: Piperacillin/Tazobactam/ (Dextrose 4.5 gm/ Premix) 100 mls @ 200 mls/hr IV Q6H [facility] Last Admin: 06/09/20 15:28 Dose: 200 mls/hr Documented by: Vancomycin HCl 1.5 gm/ Sodium (Chloride) 250 mls @ 175 mls/hr IV ONETIME ONE Stop: 06/09/20 17:25 Last Admin: 06/09/20 16:13 Dose: 175 mls/hr Documented by: Sodium Chloride (Normal Saline) 1,000 mls @ 125 mls/hr IV ASDIRECTED [facility] Last Admin: 06/10/20 04:04 Dose: 125 mls/hr Documented by: Piperacillin Sod/Tazobactam (Sod 3.375 gm/ Sodium Chloride) 50 mls @ 100 mls/hr IV Q6H [facility] Last Admin: 06/10/20 03:02 Dose: 100 mls/hr Documented by: Vancomycin HCl 1.25 gm/ Sodium (Chloride) 250 mls @ 166.667 mls/hr IV Q12H [facility] Last Admin: 06/12/20 04:41 Dose: 166.667 mls/hr Documented by: Linezolid (Zyvox) Confirm Administered Dose 300 mls @ as directed .ROUTE .STK- MED ONE Stop: 06/10/20 08:20 Sodium Chloride (Normal Saline) 1,000 mls @ 25 mls/hr IV ASDIRECTED [facility] Last Admin: 06/10/20 21:30 Dose: 25 mls/hr Documented by: Insulin Glargine (Lantus Solostar) 15 units SUBCUT BEDTIME [facility] Last Admin: 06/10/20 21:11 Dose: 15 units Documented by: Lidocaine HCl (Xylocaine 1%) Confirm Administered Dose 50 ml .ROUTE .STK-MED ONE Stop: 06/10/20 13:15 Lidocaine/Epinephrine (Xylocaine 1% With Epinephrine 1:100,000) Confirm Administered Dose 50 ml .ROUTE .STK-MED ONE Stop: 06/10/20 08:18 Meropenem (Merrem) Confirm Administered Dose 500 mg .ROUTE .STK-MED ONE Stop: 06/10/20 08:20 Midazolam HCl (Versed 1 Mg/Ml) Confirm Administered Dose 2 mg .ROUTE .STK-MED ONE Stop: 06/10/20 08:22 Pantoprazole Sodium (Protonix) 20 mg PO DAILY [facility] Insulin Pump (Ptom) 0 each .XX ASDIRECTED [facility] Propofol (Diprivan 20 Ml) Confirm Administered Dose 200 mg .ROUTE .STK-MED ONE Stop: 06/10/20 08:22 Propofol (Diprivan 20 Ml) Confirm Administered Dose 200 mg .ROUTE .STK-MED ONE Stop: 06/10/20 13:26 Sodium Chloride (Saline Flush) 10 ml FLUSH ASDIRECTED PRN PRN Reason: Keep Vein Open Last Admin: 06/09/20 15:28 Dose: 10 ml Documented by: Vancomycin HCl (Vancomycin) 1 gm IV .PHARMACY TO DOSE [facility] Vancomycin HCl (Vancomycin) 1 gm IV .PHARMACY TO DOSE AKI Stop: 06/10/20 18:58 - Exam Quality Assessment: DVT Prophylaxis General: Alert, Oriented, Cooperative, Mild Distress Lungs: Clear to Auscultation, Normal Respiratory Effort Cardiovascular: Regular Rate, Regular Rhythm, No Murmurs GI/Abdominal Exam: Soft, Non-Tender, No Organomegaly, No Distention Extremities: Non-Tender, No Pedal Edema, Other (Dressing in place left foot) Sepsis Event Note - Evaluation Sepsis Screening Result: No Definite Risk - Focused Exam Vital Signs: Vital Signs Temp Pulse Pulse Resp BP BP Pulse Ox 06/13/20 10:40 95 F L 58 L 16 147/73 H 98 06/13/20 10:00 70 142/72 H 06/13/20 09:59 145/72 H 06/13/20 07:28 95.9 F L 64 16 145/72 H 97 06/13/20 02:53 95.8 F L 57 L 16 128/71 96 - Problem List Review Problem List Initiated/Reviewed/Updated: Yes - My Orders Last 24 Hours: My Active Orders 06/12/20 16:00 Vancomycin 1.4 gm Sodium Chloride 0.9% [Normal Saline] 250 ml IV Q12H 06/13/20 05:47 Isolation [COMM] Routine 06/13/20 11:21 Central Line Assessment [RC] QSHIFT 06/14/20 05:00 BASIC METABOLIC PANEL,BMP [CHEM] Timed 06/14/20 08:00 Consult to PICC Team [CONS] Routine Central Venous Line Insertion [OM.PC] Routine - Plan Plan:: ASSESSMENT AND PLAN DIABETIC ULCER LEFT FOOT WITH INFECTION-status post surgical debridement. MRI shows evidence of osteomyelitis. Culture growing MRSA and Serratia -Wound and blood cultures pending -Continue vancomycin and Pip/Tazo, pending culture results -Symptomatic management of pain -Surgical follow-up per Dr. Nicholson -PICC line placement tomorrow INSULIN-DEPENDENT DIABETES MELLITUS-unfortunately insulin pump stopped working yesterday. Sugars have been in the 200 range since that time. -Increased dose of long-acting insulin -Continue current dosing of insulin with meals and sliding scale -4 times daily glucometers CORONARY ARTERY DISEASE-stable and asymptomatic. -Continue outpatient medications MAINTENANCE ISSUES -DVT prophylaxis; Lovenox 40 mg subcu daily -GI prophylaxis; not indicated -Brody catheter; not indicated -Nutrition; consistent carbohydrate diet, n.p.o. after midnight DISPOSITION-anticipate discharge to home after the hospital stay.
--- NOTE | 2020-06-13 13:22 | PN ---
DATE OF SERVICE: 06/13/2020 The patient has been afebrile with stable vital signs. Cultures have come back showing MRSA sensitive to vancomycin which he is on and also with any Citrobacter which would account for the gram-negative rods as seen on the initial stains. This is also sensitive to Zosyn which the patient is on, so he should be adequately covered. The wound was cleaned, it was not becoming overly dry. We will continue the local wound care and [place] at which time he will pickling grader wound care with the wound care physician they have been using down at that area. the patient likely set up with a PICC line tomorrow to continue IV antibiotics over the next several weeks and his surgical shoe and this does appear to actively offload the forefoot putting pressure on the heel when weightbearing that would be quite satisfactory in this case. Barron Nicholson MD /[id number]
[2020-06-13] MEDS: Enoxaparin 40 MG/0.4 ML Syringe SUBCUT SCH (17:57)
--- NOTE | 2020-06-13 18:43 | OR ---
DATE OF PROCEDURE: 06/10/2020 SURGEON: Barron Nicholson MD PREOPERATIVE DIAGNOSIS: Focal necrotizing infection in plantar aspect of left foot with adjacent small subfascial abscess. OPERATIVE PROCEDURES: 1. Incision and drainage of small subfascial abscess, plantar aspect left foot (97053). 2. Debridement of necrotizing infection involving skin, subcutaneous tissue, and fascia, plantar aspect left foot ([id number]). ANESTHESIA: IV sedation. INDICATION FOR PROCEDURE: This is a 69-year-old male presenting with cellulitis and probably some focal abscess formation in an otherwise open wound on the plantar aspect of left foot. MRI obtained early today showed cellulitis and some probable infection involving the underlying cuboid bone, but that bone is presently covered with a nice layer of granulation tissue and the plan will be not to further debride that, but drain and debride the soft tissue infection somewhat up posterior to that area. Potential risks including further bleeding and infection were discussed and the patient wishes to proceed. DETAILS OF PROCEDURE: The patient was taken to the operating room and placed in a supine position. IV sedation was administered, after which the left foot and surrounding areas were prepped and draped. On inspection, the patient had rim of necrotic tissue on the posterior aspect of the present open wound, i.e., in the direction towards the heel. As this was debrided away, it was noted that the patient had not enough skin sensation that he was reacting at all, so we elected not to use any local anesthetic. The debridement continued down through the skin, subcutaneous tissue, and fascia until viable tissue was achieved by means of some bright bleeding. During the course of this, small area of abscess formation was encountered, and this was drained. Overall 3 sets of cultures were obtained, one from the abscess, one from the soft tissue more superficially, and one from the deeper soft tissue, and at that point, there appeared to be no further areas of necrosis or infection and dressing was applied with plain new gauze and the patient was taken to the recovery room in satisfactory condition. Barron Nicholson MD /[id number]
[2020-06-13] MEDS: Gabapentin 300 MG Cap PO SCH (21:38)
[2020-06-13] MEDS: Insulin Glargine,Human Rec. Analog 100 Units/ML 3 ML Pen SUBCUT SCH (21:43)
[2020-06-14] MEDS: Piperacillin/Tazobactam/Dext 3.375 GM in Premix Bag 1 BAG IV SCH ×2 (04:17→08:55)
[2020-06-14] MEDS: Vancomycin 1.4 GM in Sodium Chloride 0.9% 250 ML IV SCH (04:56)
--- NOTE | 2020-06-14 07:25 | PN ---
DATE OF SERVICE: 06/14/2020 SUBJECTIVE: Michele will be having a PICC line placed today. He will be going home per hospitalist on antibiotics, vancomycin and Zosyn, for positive MRSA. Dressing will be changed twice daily on his left foot. Plan is to go to [place] in about 1 week. Followup will be there with his provider and follow up specialist. He reports pain is controlled. He has had no fever. REVIEW OF SYSTEMS: Remainder of review of systems negative for any pertinent positives or negatives. OBJECTIVE: GENERAL: Michele is a 69-year-old male, alert and orientated. Color good. VITAL SIGNS: TPR is 96.4, 58, 18, and blood pressure 120/66. HEENT: Negative. NECK: Supple. HEART: Regular rate and rhythm. LUNGS: Clear. Dressing on left foot, dry and intact. ASSESSMENT: 1. Cellulitis, left foot, SP. 2. MRSA infection. 3. Incision and drainage, soft tissue debridement, plantar aspect of left foot for focal abscess and soft tissue necrosis adjacent to left plantar foot ulcer. DATE OF PROCEDURE: 06/10/2020. SURGEON: Barron Nicholson MD. PLAN: 1. Discharge per hospitalist. 2. Continue to change dressings twice daily. If the dressings get dry to add some saline. To follow up p.r.n. or in [place] for followup. Zulay Loera PA-C /[id number]
[2020-06-14] MEDS: Pantoprazole 40 MG Tab.CR PO SCH (08:03)
[2020-06-14] MEDS: Ferrous Sulfate 325 MG Tab PO SCH (08:04)
[2020-06-14] MEDS: Gabapentin 100 MG Cap PO SCH ×2 (08:04→22:02)
[2020-06-14] MEDS: Magnesium Oxide 400 MG Tab PO SCH (08:04)
[2020-06-14] MEDS: Lisinopril 2.5 MG Tab PO SCH (08:04)
[2020-06-14] MEDS: Metoprolol Succinate 25 MG Tab.ER PO SCH (08:04)
[2020-06-14] MEDS: Lactobacillus Rhamnosus GG (Probiotic) Cap PO SCH ×3 (08:04→22:02)
[2020-06-14] MEDS: Aspirin 81 MG Tab.EC PO SCH ×2 (08:04→22:02)
[2020-06-14] MEDS: Insulin Lispro 100 Unit/ML 3 ML KwikPen SUBCUT SCH ×7 (08:05→21:57)
[2020-06-14] MEDS ORDERED: cefTRIAXone 1 GM in Sodium Chloride 0.9% 50 ML IV SCH (15:15)
[2020-06-14] MEDS ORDERED: cefTRIAXone 1 GM in Sodium Chloride 0.9% 50 ML IV ONE (15:30)
[2020-06-14] MEDS: Enoxaparin 40 MG/0.4 ML Syringe SUBCUT SCH (17:52)
[2020-06-14] MEDS ORDERED: Vancomycin 1.4 GM in Sodium Chloride 0.9% 250 ML IV ONE (18:00)
--- NOTE | 2020-06-14 18:35 | PCM.PN ---
- General Info Date of Service: 06/14/20 Subjective Update: Mr. Carrizales has remained stable over the last 24 hours. Vital signs are good and he has remained afebrile. Continues to ambulate with use of a walker but minimal weightbearing left foot. Functional Status: Reports: Tolerating Diet, Ambulating, Urinating - Review of Systems General: Reports: Weakness, Fatigue. Denies: Fever, Chills Pulmonary: Reports: No Symptoms Cardiovascular: Reports: No Symptoms Gastrointestinal: Reports: No Symptoms - Patient Data Vitals - Most Recent: Last Vital Signs Temp 95.6 F L 06/14/20 16:18 Pulse 58 L 06/14/20 16:18 Resp 18 06/14/20 16:18 BP 120/68 06/14/20 16:18 Pulse Ox 96 06/14/20 16:18 Weight - Most Recent: 192 lb 0.009 oz I&O - Last 24 Hours: Intake & Output 06/14/20 06/14/20 06/14/20 06:59 14:59 22:59 Intake Total 968 097 9368 Balance 287 [id number] Lab Results Last 24 Hours: Laboratory Results - last 24 hr 06/13/20 06/14/20 06/14/20 Range/Units 21:16 05:50 07:30 Sodium 135 L (140-148) mmol/L Potassium 3.9 (3.6-5.2) mmol/L Chloride 102 (100-108) mmol/L Carbon Dioxide 26 (21-32) mmol/L Anion Gap 10.9 (5.0-14.0) mmol/L BUN 8 D (7-18) mg/dL Creatinine 1.0 (0.8-1.3) mg/dL Est Cr Clr Drug Dosing 77.71 mL/min Estimated GFR (MDRD) > 60 (>60) Glucose 143 H (74-106) mg/dL POC Glucose 280 H 157 H (74-106) MG/DL Calcium 8.8 (8.5-10.1) mg/dL Vancomycin Trough (10.0-20.0) ug/mL 06/14/20 06/14/20 06/14/20 Range/Units 11:54 16:10 16:29 Sodium (140-148) mmol/L Potassium (3.6-5.2) mmol/L Chloride (100-108) mmol/L Carbon Dioxide (21-32) mmol/L Anion Gap (5.0-14.0) mmol/L BUN (7-18) mg/dL Creatinine (0.8-1.3) mg/dL Est Cr Clr Drug Dosing mL/min Estimated GFR (MDRD) (>60) Glucose (74-106) mg/dL POC Glucose 293 H 374 H (74-106) MG/DL Calcium (8.5-10.1) mg/dL Vancomycin Trough 14.5 (10.0-20.0) ug/mL Adrián Results Last 24 Hours: Microbiology 06/09/20 15:35 Aerobic Blood Culture - Final Blood - Arm, Left NO GROWTH AFTER 5 DAYS Anaerobic Blood Culture - Final NO GROWTH AFTER 5 DAYS 06/09/20 15:26 Aerobic Blood Culture - Final Blood - Venous - Iv Start NO GROWTH AFTER 5 DAYS Anaerobic Blood Culture - Final NO GROWTH AFTER 5 DAYS 06/10/20 13:22 Gram Stain - Final Foot, Left Wound Culture - Final (Mrsa) Staphylococcus Aureus Citrobacter Braakii Gram Positive Rods 06/10/20 13:22 Gram Stain - Final Foot, Left Wound Culture - Final (Mrsa) Staphylococcus Aureus Citrobacter Braakii Gram Positive Rods Anaerobic Culture - Final NO GROWTH AFTER 3 DAYS Med Orders - Current: Current Medications Acetaminophen (Tylenol) 650 mg PO Q4H PRN PRN Reason: Pain (Mild 1-3)/fever Last Admin: 06/10/20 21:28 Dose: 650 mg Documented by: Aspirin (Halfprin) 81 mg PO BID [facility] Last Admin: 06/14/20 08:04 Dose: 81 mg Documented by: Enoxaparin Sodium (Lovenox) 40 mg SUBCUT Q24H [facility] Last Admin: 06/14/20 17:52 Dose: 40 mg Documented by: Ferrous Sulfate (Ferrous Sulfate) 325 mg PO DAILY [facility] Last Admin: 06/14/20 08:04 Dose: 325 mg Documented by: Gabapentin (Neurontin) 300 mg PO BEDTIME [facility] Last Admin: 06/13/20 21:38 Dose: 300 mg Documented by: Gabapentin (Neurontin) 100 mg PO BID [facility] Last Admin: 06/14/20 08:04 Dose: 100 mg Documented by: Ceftriaxone Sodium 1 gm/ (Sodium Chloride) 50 mls @ 100 mls/hr IV Q24H [facility] Vancomycin HCl 1.5 gm/ Sodium (Chloride) 250 mls @ 166.667 mls/hr IV ONETIME ONE Stop: 06/14/20 19:29 Last Admin: 06/14/20 17:47 Dose: 166.667 mls/hr Documented by: Vancomycin HCl 1.5 gm/ Sodium (Chloride) 250 mls @ 166.667 mls/hr IV ONETIME ONE Stop: 06/15/20 08:29 Insulin Glargine (Lantus Solostar) 20 units SUBCUT BEDTIME [facility] Last Admin: 06/13/20 21:43 Dose: 20 units Documented by: Insulin Human Lispro (Humalog) 5 unit SUBCUT TIDMEALS [facility] Last Admin: 06/14/20 17:47 Dose: 5 units Documented by: Insulin Human Lispro (Humalog) 0 unit SUBCUT QIDACANDBED [facility]; Protocol Last Admin: 06/14/20 16:23 Dose: 10 units Documented by: Lactobacillus Rhamnosus (Culturelle) 1 cap PO TID [facility] Last Admin: 06/14/20 16:15 Dose: 1 cap Documented by: Lisinopril (Prinivil) 2.5 mg PO DAILY [facility] Last Admin: 06/14/20 08:04 Dose: 2.5 mg Documented by: Magnesium Oxide (Magnesium Oxide) 400 mg PO DAILY [facility] Last Admin: 06/14/20 08:04 Dose: 400 mg Documented by: Metoprolol Succinate (Toprol Xl) 25 mg PO DAILY [facility] Last Admin: 06/14/20 08:04 Dose: 25 mg Documented by: Ondansetron HCl (Zofran) 4 mg IV Q4H PRN PRN Reason: Nausea/Vomiting Oxycodone HCl (Oxycodone) 5 mg PO Q4H PRN PRN Reason: Pain (moderate 4-6) Last Admin: 06/10/20 21:27 Dose: 5 mg Documented by: Pantoprazole Sodium (Protonix) 40 mg PO DAILY@0730 [facility] Last Admin: 06/14/20 08:03 Dose: 40 mg Documented by: Polyethylene Glycol (Miralax) 17 gm PO DAILY PRN PRN Reason: Constipation Sodium Chloride (Saline Flush) 10 ml FLUSH ASDIRECTED PRN PRN Reason: Keep Vein Open Discontinued Medications Acetaminophen (Tylenol) 650 mg PO Q4H PRN PRN Reason: Fever Greater Than 101 Last Admin: 06/09/20 15:27 Dose: 650 mg Documented by: Bupivacaine HCl (Marcaine 0.5%) Confirm Administered Dose 50 ml .ROUTE .STK-MED ONE Stop: 06/10/20 08:18 Enoxaparin Sodium (Lovenox) 40 mg SUBCUT DAILY [facility] Last Admin: 06/09/20 20:22 Dose: 40 mg Documented by: Fentanyl (Sublimaze) Confirm Administered Dose 100 mcg .ROUTE .STK-MED ONE Stop: 06/10/20 08:21 Gadoteridol (Prohance) 15 ml IV .A DIRECTED [facility] Stop: 06/10/20 10:01 Last Admin: 06/10/20 09:44 Dose: 15 ml Documented by: Piperacillin Sod/Tazobactam (Sod 4.5 gm/ Sodium Chloride) 100 mls @ 100 mls/hr IV Q6H [facility] Last Admin: 06/09/20 19:52 Dose: Not Given Documented by: Lactated Ringer's (Ringers, Lactated) 1,000 mls @ 999 mls/hr IV BOLUS ONE Stop: 06/09/20 15:30 Last Admin: 06/09/20 15:28 Dose: 999 mls/hr Documented by: Piperacillin/Tazobactam/ (Dextrose 4.5 gm/ Premix) 100 mls @ 200 mls/hr IV Q6H [facility] Last Admin: 06/09/20 15:28 Dose: 200 mls/hr Documented by: Vancomycin HCl 1.5 gm/ Sodium (Chloride) 250 mls @ 175 mls/hr IV ONETIME ONE Stop: 06/09/20 17:25 Last Admin: 06/09/20 16:13 Dose: 175 mls/hr Documented by: Sodium Chloride (Normal Saline) 1,000 mls @ 125 mls/hr IV ASDIRECTED [facility] Last Admin: 06/10/20 04:04 Dose: 125 mls/hr Documented by: Piperacillin Sod/Tazobactam (Sod 3.375 gm/ Sodium Chloride) 50 mls @ 100 mls/hr IV Q6H [facility] Last Admin: 06/10/20 03:02 Dose: 100 mls/hr Documented by: Vancomycin HCl 1.25 gm/ Sodium (Chloride) 250 mls @ 166.667 mls/hr IV Q12H [facility] Last Admin: 06/12/20 04:41 Dose: 166.667 mls/hr Documented by: Piperacillin/Tazobactam/ (Dextrose 3.375 gm/ Premix) 50 mls @ 100 mls/hr IV Q6H [facility] Last Admin: 06/14/20 08:55 Dose: 100 mls/hr Documented by: Linezolid (Zyvox) Confirm Administered Dose 300 mls @ as directed .ROUTE .STK- MED ONE Stop: 06/10/20 08:20 Sodium Chloride (Normal Saline) 1,000 mls @ 25 mls/hr IV ASDIRECTED [facility] Last Admin: 06/10/20 21:30 Dose: 25 mls/hr Documented by: Vancomycin HCl 1.4 gm/ Sodium (Chloride) 250 mls @ 166.667 mls/hr IV Q12H [facility] Last Admin: 06/14/20 04:56 Dose: 166.667 mls/hr Documented by: Ceftriaxone Sodium 1 gm/ (Sodium Chloride) 50 mls @ 100 mls/hr IV Q24H [facility] Ceftriaxone Sodium 1 gm/ (Sodium Chloride) 50 mls @ 100 mls/hr IV ONETIME ONE Stop: 06/14/20 15:59 Last Admin: 06/14/20 16:15 Dose: 100 mls/hr Documented by: Insulin Glargine (Lantus Solostar) 15 units SUBCUT BEDTIME [facility] Last Admin: 06/10/20 21:11 Dose: 15 units Documented by: Lidocaine HCl (Xylocaine 1%) Confirm Administered Dose 50 ml .ROUTE .STK-MED ONE Stop: 06/10/20 13:15 Lidocaine/Epinephrine (Xylocaine 1% With Epinephrine 1:100,000) Confirm Administered Dose 50 ml .ROUTE .STK-MED ONE Stop: 06/10/20 08:18 Meropenem (Merrem) Confirm Administered Dose 500 mg .ROUTE .STK-MED ONE Stop: 06/10/20 08:20 Midazolam HCl (Versed 1 Mg/Ml) Confirm Administered Dose 2 mg .ROUTE .STK-MED ONE Stop: 06/10/20 08:22 Pantoprazole Sodium (Protonix) 20 mg PO DAILY [facility] Insulin Pump (Ptom) 0 each .XX ASDIRECTED [facility] Propofol (Diprivan 20 Ml) Confirm Administered Dose 200 mg .ROUTE .STK-MED ONE Stop: 06/10/20 08:22 Propofol (Diprivan 20 Ml) Confirm Administered Dose 200 mg .ROUTE .STK-MED ONE Stop: 06/10/20 13:26 Sodium Chloride (Saline Flush) 10 ml FLUSH ASDIRECTED PRN PRN Reason: Keep Vein Open Last Admin: 06/09/20 15:28 Dose: 10 ml Documented by: Vancomycin HCl (Vancomycin) 1 gm IV .PHARMACY TO DOSE AKI Vancomycin HCl (Vancomycin) 1 gm IV .PHARMACY TO DOSE AKI Stop: 06/10/20 18:58 - Exam Quality Assessment: DVT Prophylaxis General: Alert, Oriented, Cooperative, No Acute Distress Lungs: Clear to Auscultation, Normal Respiratory Effort Cardiovascular: Regular Rate, Regular Rhythm, No Murmurs GI/Abdominal Exam: Soft, Non-Tender, No Organomegaly, No Distention Extremities: Non-Tender, No Pedal Edema, Other (Dressing in place left foot) Sepsis Event Note - Evaluation Sepsis Screening Result: No Definite Risk - Focused Exam Vital Signs: Vital Signs Temp Pulse Pulse Resp BP BP BP 06/14/20 16:18 95.6 F L 58 L 18 120/68 06/14/20 08:04 59 L 134/80 06/14/20 07:00 95.4 F L 59 L 18 134/80 Pulse Ox 06/14/20 16:18 96 06/14/20 08:04 06/14/20 07:00 97 - Problem List Review Problem List Initiated/Reviewed/Updated: Yes - My Orders Last 24 Hours: My Active Orders 06/14/20 08:00 Consult to PICC Team [CONS] Routine Central Venous Line Insertion [OM.PC] Routine 06/14/20 18:00 Vancomycin 1.5 gm Sodium Chloride 0.9% [Normal Saline] 250 ml IV ONETIME 06/15/20 07:00 Vancomycin 1.5 gm Sodium Chloride 0.9% [Normal Saline] 250 ml IV ONETIME cefTRIAXone [Rocephin] 1 gm Sodium Chloride 0.9% [Normal Saline] 50 ml IV Q24H - Plan Plan:: ASSESSMENT AND PLAN DIABETIC ULCER LEFT FOOT WITH INFECTION-status post surgical debridement. MRI shows evidence of osteomyelitis. Culture growing MRSA and Citrobacter -Wound and blood cultures pending -Continue vancomycin -Discontinue Zosyn -Ceftriaxone 1 g IV every 24 hours -Symptomatic management of pain -Surgical follow-up per Dr. Nicholson -PICC line placement tomorrow INSULIN-DEPENDENT DIABETES MELLITUS-unfortunately insulin pump stopped working yesterday. Sugars have been in the 200 range since that time. -Increased dose of long-acting insulin -Continue current dosing of insulin with meals and sliding scale -4 times daily glucometers CORONARY ARTERY DISEASE-stable and asymptomatic. -Continue outpatient medications MAINTENANCE ISSUES -DVT prophylaxis; Lovenox 40 mg subcu daily -GI prophylaxis; not indicated -Brody catheter; not indicated -Nutrition; consistent carbohydrate diet, n.p.o. after midnight DISPOSITION-anticipate discharge to home after the hospital stay.
--- NOTE | 2020-06-14 18:55 | PCM.DCSUM1 ---
Discharge Summary - Hospital Course Brief History: Mr. Carrizales is a 69-year-old gentleman who was admitted through the emergency department for management of infected diabetic foot ulcer on his left foot. - Discharge Data Discharge Date: 06/14/20 Discharge Disposition: Home, Self-Care 01 Condition: Fair - Referral to Home Health Primary Care Physician: RICHARD Starkey - Discharge Diagnosis/Problem(s) (1) Diabetic foot ulcer with osteomyelitis SNOMED Code(s): 94799214 ICD Code: E11.621 - TYPE 2 DIABETES MELLITUS WITH FOOT ULCER; E11.69 - TYPE 2 DIABETES MELLITUS WITH OTHER SPECIFIED COMPLICATION; L97.509 - NON-PRESSURE CHRONIC ULCER OTH PRT UNSP FOOT W UNSP SEVERITY; M86.9 - OSTEOMYELITIS, UNSPECIFIED Status: Acute Current Visit: Yes (2) Cellulitis of left foot SNOMED Code(s): 399758304 ICD Code: L03.116 - CELLULITIS OF LEFT LOWER LIMB Status: Acute Current Visit: Yes (3) Chronic ischemic heart disease, unspecified SNOMED Code(s): 670463731 ICD Code: I25.9 - CHRONIC ISCHEMIC HEART DISEASE, UNSPECIFIED Status: Chronic Current Visit: No (4) Type 2 diabetes mellitus SNOMED Code(s): 01394300 ICD Code: E11.9 - TYPE 2 DIABETES MELLITUS WITHOUT COMPLICATIONS Status: Chronic Current Visit: No - Patient Summary/Data Consults: Consultations 06/09/20 18:57 Consult to Physician [CONS] Routine Consulting Provider: Barron Nicholson Call Completed to Consulting Physician: Yes Reason for Consult: Diabetic ulcer and infection left foot 06/14/20 08:00 Consult to PICC Team [CONS] Routine Comment: Physician Instructions: Hospital Course: Mr. Carrizales is a 69-year-old gentleman who was admitted through the emergency department with weakness and fever, secondary to diabetic foot ulcer on his left foot with cellulitis. He has a known and longstanding history of diabetes as well as peripheral arterial disease. 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 He has had ongoing difficulty with ulcer on the plantar aspect of his left foot. Until recently it had appeared to be healing, but over the past several days has become more erythematous with purulent drainage. Over the last 24 hours he has developed a fever and presented to the emergency department for further evaluation. White blood cell count is elevated and there is obvious infection involving the ulcer in the left foot. X-ray obtained of the foot shows no evidence of osteomyelitis. On admission blood cultures were obtained and he was started on broad-spectrum IV antibiotic therapy with vancomycin and Zosyn. Given IV fluids for hydration over the first several hours of hospital stay. On the day after admission MRI was obtained which did show evidence of osteomyelitis involving the left foot and ulcer. He was seen and evaluated by Dr. Nicholson. He was taken to the operating room for debridement of the ulcer by Dr. Nicholson. He improved during the hospital stay with resolution of the erythema involving the skin and good control of the infection. Blood cultures showed no growth during hospitalization. Cultures from the wound grew out MRSA and Citrobacter. Prior to discharge she was converted to antibiotic therapy intravenously with vancomycin and ceftriaxone. He will continue current antibiotic therapy until seen for follow-up by infectious disease in [facility] during the middle portion of the month. Diabetes was monitored during hospital stay, initially he managed his diabetes with use of his insulin pump. His insulin pump malfunctioned and he was transitioned to long and short acting insulin. He will be discharged on this regimen until he is able to get his new insulin pump on Sunday, June 16. He will come in for outpatient IV antibiotics twice daily until he leaves for [facility]. Follow-up appointment has already been scheduled with infectious disease specialist in [place] as well as a curriculum development specialist surgeon. He will continue ambulation with minimal weightbearing on his left foot and use of a walker. Activity will be as tolerated and he will remain on a diabetic diet. - Patient Instructions Diet: Diabetic Diet Activity: As Tolerated Other/Special Instructions: Please schedule follow-up appointment with Dr. Nicholson within 1 week. Patient already has follow-up appointments scheduled with curriculum development specialist and infectious disease specialist in [facility] later this month. Continue current antibiotic regimen until seen for follow-up by infectious disease. Wound care directions per Dr. Nicholson - Discharge Plan *PRESCRIPTION DRUG MONITORING PROGRAM REVIEWED*: Not Applicable *COPY OF PRESCRIPTION DRUG MONITORING REPORT IN PATIENT MAGALY: Not Applicable Home Medications: Home Meds Cyanocobalamin (Vitamin B-12) [Vitamin B-12] 1,000 mcg PO DAILY 10/19/14 [History] Lactobacillus Acidophilus [Acidophilus] 1 each PO TID 10/19/14 [History] Lisinopril 2.5 mg PO DAILY 10/19/14 [History] Magnesium 400 mg PO DAILY 10/19/14 [History] Cholecalciferol (Vitamin D3) [Vitamin D3] 1,000 units PO DAILY 10/11/18 [History] Aspirin [Adult Low Dose Aspirin EC] 81 mg PO BID 10/18/18 [History] Gabapentin [Neurontin] 100 mg PO BID 11/07/18 [History] Acetaminophen [Acetaminophen Extra Strength] 500 mg PO Q6H 06/03/19 [History] Ascorbic Acid/Bioflavonoids [C 1,423-[id number]] 1 each PO DAILY 06/03/19 [History] Ferrous Sulfate 325 mg PO DAILY 06/03/19 [History] Multivitamin with Folic Acid [One Daily Essential Tablet] 800 mcg PO DAILY 06/03/19 [History] Vitamin B Complex [Balanced B-50] 1 each PO DAILY 06/03/19 [History] Gabapentin [Neurontin] 300 mg PO BEDTIME 06/09/20 [History] Metoprolol Succinate 25 mg PO DAILY 06/09/20 [History] Pantoprazole [ProTONIX] 20 mg PO DAILY 06/09/20 [History] Insulin Glarg,Human.Rec.Analog [Lantus Solostar] 20 units SUBCUT BEDTIME pen 06/14/20 [Rx] Insulin Lispro [Humalog] 5 unit SUBCUT TIDMEALS pen 06/14/20 [Rx] Vancomycin 1.5 gm IV Q12H sdv 06/14/20 [Rx] cefTRIAXone [Rocephin] 1 gm IV Q24H vial 06/14/20 [Rx] Referrals: Na Lao PA [Primary Care Provider] - - Discharge Summary/Plan Comment DC Time >30 min.: No - Patient Data Vitals - Most Recent: Last Vital Signs Temp 95.6 F L 06/14/20 16:18 Pulse 58 L 06/14/20 16:18 Resp 18 06/14/20 16:18 BP 120/68 06/14/20 16:18 Pulse Ox 96 06/14/20 16:18 Weight - Most Recent: 192 lb 0.009 oz I&O - Last 24 hours: Intake & Output 06/14/20 06/14/20 06/14/20 06:59 14:59 22:59 Intake Total 962 474 2972 Balance 386 195 3287 Lab Results - Last 24 hrs: Laboratory Results - last 24 hr 06/13/20 06/14/20 06/14/20 Range/Units 21:16 05:50 07:30 Sodium 135 L (140-148) mmol/L Potassium 3.9 (3.6-5.2) mmol/L Chloride 102 (100-108) mmol/L Carbon Dioxide 26 (21-32) mmol/L Anion Gap 10.9 (5.0-14.0) mmol/L BUN 8 D (7-18) mg/dL Creatinine 1.0 (0.8-1.3) mg/dL Est Cr Clr Drug Dosing 77.71 mL/min Estimated GFR (MDRD) > 60 (>60) Glucose 143 H (74-106) mg/dL POC Glucose 280 H 157 H (74-106) MG/DL Calcium 8.8 (8.5-10.1) mg/dL Vancomycin Trough (10.0-20.0) ug/mL 06/14/20 06/14/20 06/14/20 Range/Units 11:54 16:10 16:29 Sodium (140-148) mmol/L Potassium (3.6-5.2) mmol/L Chloride (100-108) mmol/L Carbon Dioxide (21-32) mmol/L Anion Gap (5.0-14.0) mmol/L BUN (7-18) mg/dL Creatinine (0.8-1.3) mg/dL Est Cr Clr Drug Dosing mL/min Estimated GFR (MDRD) (>60) Glucose (74-106) mg/dL POC Glucose 293 H 374 H (74-106) MG/DL Calcium (8.5-10.1) mg/dL Vancomycin Trough 14.5 (10.0-20.0) ug/mL NATHALIA Results - Last 24 hrs: Microbiology 06/09/20 15:35 Aerobic Blood Culture - Final Blood - Arm, Left NO GROWTH AFTER 5 DAYS Anaerobic Blood Culture - Final NO GROWTH AFTER 5 DAYS 06/09/20 15:26 Aerobic Blood Culture - Final Blood - Venous - Iv Start NO GROWTH AFTER 5 DAYS Anaerobic Blood Culture - Final NO GROWTH AFTER 5 DAYS 06/10/20 13:22 Gram Stain - Final Foot, Left Wound Culture - Final (Mrsa) Staphylococcus Aureus Citrobacter Braakii Gram Positive Rods 06/10/20 13:22 Gram Stain - Final Foot, Left Wound Culture - Final (Mrsa) Staphylococcus Aureus Citrobacter Braakii Gram Positive Rods Anaerobic Culture - Final NO GROWTH AFTER 3 DAYS Med Orders - Current: Current Medications Acetaminophen (Tylenol) 650 mg PO Q4H PRN PRN Reason: Pain (Mild 1-3)/fever Last Admin: 06/10/20 21:28 Dose: 650 mg Documented by: Aspirin (Halfprin) 81 mg PO BID [facility] Last Admin: 06/14/20 08:04 Dose: 81 mg Documented by: Enoxaparin Sodium (Lovenox) 40 mg SUBCUT Q24H [facility] Last Admin: 06/14/20 17:52 Dose: 40 mg Documented by: Ferrous Sulfate (Ferrous Sulfate) 325 mg PO DAILY [facility] Last Admin: 06/14/20 08:04 Dose: 325 mg Documented by: Gabapentin (Neurontin) 300 mg PO BEDTIME [facility] Last Admin: 06/13/20 21:38 Dose: 300 mg Documented by: Gabapentin (Neurontin) 100 mg PO BID [facility] Last Admin: 06/14/20 08:04 Dose: 100 mg Documented by: Ceftriaxone Sodium 1 gm/ (Sodium Chloride) 50 mls @ 100 mls/hr IV Q24H AKI Vancomycin HCl 1.5 gm/ Sodium (Chloride) 250 mls @ 166.667 mls/hr IV ONETIME ONE Stop: 06/14/20 19:29 Last Admin: 06/14/20 17:47 Dose: 166.667 mls/hr Documented by: Vancomycin HCl 1.5 gm/ Sodium (Chloride) 250 mls @ 166.667 mls/hr IV Q12H [facility] Insulin Glargine (Lantus Solostar) 20 units SUBCUT BEDTIME [facility] Last Admin: 06/13/20 21:43 Dose: 20 units Documented by: Insulin Human Lispro (Humalog) 5 unit SUBCUT TIDMEALS [facility] Last Admin: 06/14/20 17:47 Dose: 5 units Documented by: Insulin Human Lispro (Humalog) 0 unit SUBCUT QIDACANDBED [facility]; Protocol Last Admin: 06/14/20 16:23 Dose: 10 units Documented by: Lactobacillus Rhamnosus (Culturelle) 1 cap PO TID [facility] Last Admin: 06/14/20 16:15 Dose: 1 cap Documented by: Lisinopril (Prinivil) 2.5 mg PO DAILY [facility] Last Admin: 06/14/20 08:04 Dose: 2.5 mg Documented by: Magnesium Oxide (Magnesium Oxide) 400 mg PO DAILY [facility] Last Admin: 06/14/20 08:04 Dose: 400 mg Documented by: Metoprolol Succinate (Toprol Xl) 25 mg PO DAILY [facility] Last Admin: 06/14/20 08:04 Dose: 25 mg Documented by: Ondansetron HCl (Zofran) 4 mg IV Q4H PRN PRN Reason: Nausea/Vomiting Oxycodone HCl (Oxycodone) 5 mg PO Q4H PRN PRN Reason: Pain (moderate 4-6) Last Admin: 06/10/20 21:27 Dose: 5 mg Documented by: Pantoprazole Sodium (Protonix) 40 mg PO DAILY@0730 [facility] Last Admin: 06/14/20 08:03 Dose: 40 mg Documented by: Polyethylene Glycol (Miralax) 17 gm PO DAILY PRN PRN Reason: Constipation Sodium Chloride (Saline Flush) 10 ml FLUSH ASDIRECTED PRN PRN Reason: Keep Vein Open Discontinued Medications Acetaminophen (Tylenol) 650 mg PO Q4H PRN PRN Reason: Fever Greater Than 101 Last Admin: 06/09/20 15:27 Dose: 650 mg Documented by: Bupivacaine HCl (Marcaine 0.5%) Confirm Administered Dose 50 ml .ROUTE .STK-MED ONE Stop: 06/10/20 08:18 Enoxaparin Sodium (Lovenox) 40 mg SUBCUT DAILY [facility] Last Admin: 06/09/20 20:22 Dose: 40 mg Documented by: Fentanyl (Sublimaze) Confirm Administered Dose 100 mcg .ROUTE .STK-MED ONE Stop: 06/10/20 08:21 Gadoteridol (Prohance) 15 ml IV .A DIRECTED [facility] Stop: 06/10/20 10:01 Last Admin: 06/10/20 09:44 Dose: 15 ml Documented by: Piperacillin Sod/Tazobactam (Sod 4.5 gm/ Sodium Chloride) 100 mls @ 100 mls/hr IV Q6H [facility] Last Admin: 06/09/20 19:52 Dose: Not Given Documented by: Lactated Ringer's (Ringers, Lactated) 1,000 mls @ 999 mls/hr IV BOLUS ONE Stop: 06/09/20 15:30 Last Admin: 06/09/20 15:28 Dose: 999 mls/hr Documented by: Piperacillin/Tazobactam/ (Dextrose 4.5 gm/ Premix) 100 mls @ 200 mls/hr IV Q6H [facility] Last Admin: 06/09/20 15:28 Dose: 200 mls/hr Documented by: Vancomycin HCl 1.5 gm/ Sodium (Chloride) 250 mls @ 175 mls/hr IV ONETIME ONE Stop: 06/09/20 17:25 Last Admin: 06/09/20 16:13 Dose: 175 mls/hr Documented by: Sodium Chloride (Normal Saline) 1,000 mls @ 125 mls/hr IV ASDIRECTED [facility] Last Admin: 06/10/20 04:04 Dose: 125 mls/hr Documented by: Piperacillin Sod/Tazobactam (Sod 3.375 gm/ Sodium Chloride) 50 mls @ 100 mls/hr IV Q6H [facility] Last Admin: 06/10/20 03:02 Dose: 100 mls/hr Documented by: Vancomycin HCl 1.25 gm/ Sodium (Chloride) 250 mls @ 166.667 mls/hr IV Q12H [facility] Last Admin: 06/12/20 04:41 Dose: 166.667 mls/hr Documented by: Piperacillin/Tazobactam/ (Dextrose 3.375 gm/ Premix) 50 mls @ 100 mls/hr IV Q6H [facility] Last Admin: 06/14/20 08:55 Dose: 100 mls/hr Documented by: Linezolid (Zyvox) Confirm Administered Dose 300 mls @ as directed .ROUTE .STK- MED ONE Stop: 06/10/20 08:20 Sodium Chloride (Normal Saline) 1,000 mls @ 25 mls/hr IV ASDIRECTED [facility] Last Admin: 06/10/20 21:30 Dose: 25 mls/hr Documented by: Vancomycin HCl 1.4 gm/ Sodium (Chloride) 250 mls @ 166.667 mls/hr IV Q12H [facility] Last Admin: 06/14/20 04:56 Dose: 166.667 mls/hr Documented by: Ceftriaxone Sodium 1 gm/ (Sodium Chloride) 50 mls @ 100 mls/hr IV Q24H [facility] Ceftriaxone Sodium 1 gm/ (Sodium Chloride) 50 mls @ 100 mls/hr IV ONETIME ONE Stop: 06/14/20 15:59 Last Admin: 06/14/20 16:15 Dose: 100 mls/hr Documented by: Vancomycin HCl 1.5 gm/ Sodium (Chloride) 250 mls @ 166.667 mls/hr IV ONETIME ONE Stop: 06/15/20 08:29 Insulin Glargine (Lantus Solostar) 15 units SUBCUT BEDTIME [facility] Last Admin: 06/10/20 21:11 Dose: 15 units Documented by: Lidocaine HCl (Xylocaine 1%) Confirm Administered Dose 50 ml .ROUTE .STK-MED ONE Stop: 06/10/20 13:15 Lidocaine/Epinephrine (Xylocaine 1% With Epinephrine 1:100,000) Confirm Administered Dose 50 ml .ROUTE .STK-MED ONE Stop: 06/10/20 08:18 Meropenem (Merrem) Confirm Administered Dose 500 mg .ROUTE .STK-MED ONE Stop: 06/10/20 08:20 Midazolam HCl (Versed 1 Mg/Ml) Confirm Administered Dose 2 mg .ROUTE .STK-MED ONE Stop: 06/10/20 08:22 Pantoprazole Sodium (Protonix) 20 mg PO DAILY [facility] Insulin Pump (Ptom) 0 each .XX ASDIRECTED [facility] Propofol (Diprivan 20 Ml) Confirm Administered Dose 200 mg .ROUTE .STK-MED ONE Stop: 06/10/20 08:22 Propofol (Diprivan 20 Ml) Confirm Administered Dose 200 mg .ROUTE .STK-MED ONE Stop: 06/10/20 13:26 Sodium Chloride (Saline Flush) 10 ml FLUSH ASDIRECTED PRN PRN Reason: Keep Vein Open Last Admin: 06/09/20 15:28 Dose: 10 ml Documented by: Vancomycin HCl (Vancomycin) 1 gm IV .PHARMACY TO DOSE [facility] Vancomycin HCl (Vancomycin) 1 gm IV .PHARMACY TO DOSE [facility] Stop: 06/10/20 18:58
[2020-06-14] MEDS: Insulin Glargine,Human Rec. Analog 100 Units/ML 3 ML Pen SUBCUT SCH (22:00)
[2020-06-14] MEDS: Gabapentin 300 MG Cap PO SCH (22:02)
[2020-06-15] MEDS ORDERED: cefTRIAXone 1 GM in Sodium Chloride 0.9% 50 ML IV SCH (07:00)
[2020-06-15] MEDS: Insulin Lispro 100 Unit/ML 3 ML KwikPen SUBCUT SCH ×4 (07:54→12:27)
[2020-06-15 08:01] VITALS: BP 130/74; PULSE 67
[2020-06-15] MEDS: Aspirin 81 MG Tab.EC PO SCH (08:03)
[2020-06-15] MEDS: Pantoprazole 40 MG Tab.CR PO SCH (08:03)
[2020-06-15] MEDS: Ferrous Sulfate 325 MG Tab PO SCH (08:03)
[2020-06-15] MEDS: Magnesium Oxide 400 MG Tab PO SCH (08:03)
[2020-06-15] MEDS: Lactobacillus Rhamnosus GG (Probiotic) Cap PO SCH (08:03)
[2020-06-15] MEDS: Gabapentin 100 MG Cap PO SCH (08:04)
[2020-06-15] MEDS: Lisinopril 2.5 MG Tab PO SCH (08:04)
[2020-06-15] MEDS: Metoprolol Succinate 25 MG Tab.ER PO SCH (08:04)
== END 2020-06-15 15:40 | disposition home or self-care (01) | DRG 623 ==
LOC: JP.ED 12:42 → JP.ICU 17:01 → JP.MS 06-10 06:40
PROVIDERS: ADMIT Hospitalist; ATTEND Internal Medicine
PROC: 0JBR0ZZ Excision of Left Foot Subcutaneous Tissue and Fascia, Open Approach (ICD-10-PCS; principal; 2020-06-10)
PROC: 0J9R0ZZ Drainage of Left Foot Subcutaneous Tissue and Fascia, Open Approach (ICD-10-PCS; 2020-06-10)
DX: E11.69 Type 2 diabetes mellitus with other specified complication (principal); L03.116 Cellulitis of left lower limb; L02.612 Cutaneous abscess of left foot; M86.8X7 Other osteomyelitis, ankle and foot; E11.621 Type 2 diabetes mellitus with foot ulcer; L97.529 Non-pressure chronic ulcer of other part of left foot with unspecified severity; I25.9 Chronic ischemic heart disease, unspecified; E11.51 Type 2 diabetes mellitus with diabetic peripheral angiopathy without gangrene; B95.62 Methicillin resistant Staphylococcus aureus infection as the cause of diseases classified elsewhere; E11.9 Type 2 diabetes mellitus without complications; B96.89 Other specified bacterial agents as the cause of diseases classified elsewhere; H54.7 Unspecified visual loss; I25.10 Atherosclerotic heart disease of native coronary artery without angina pectoris; K21.9 Gastro-esophageal reflux disease without esophagitis; G89.29 Other chronic pain; M54.9 Dorsalgia, unspecified; M19.90 Unspecified osteoarthritis, unspecified site; Z20.828 Contact with and (suspected) exposure to other viral communicable diseases; Z79.82 Long term (current) use of aspirin; Z79.4 Long term (current) use of insulin; Z79.899 Other long term (current) drug therapy; I25.2 Old myocardial infarction; Z95.5 Presence of coronary angioplasty implant and graft; Z87.11 Personal history of peptic ulcer disease; Z98.49 Cataract extraction status, unspecified eye; Z90.49 Acquired absence of other specified parts of digestive tract; Z98.1 Arthrodesis status
CPT/HCPCS: 36415; 73630; 80048; 80076; 83605; 83615; 84145; 85025; 85610; 86140; 87040 ×2; 96365; 96367; 99285; A9270; J2543; J3370; J7050; J7120; U0002 ×2; 36569; 73723-LT; 80053; 80202; 82962; 83735; 85027; 87070; 87075; 87077; 87186; 87205; A9579; C1751; J0696; J1650; J1815; J1815-GY; J2001; J2020; J2185; J2250; J2704; J3010; J3490; J7030

== ENCOUNTER 2020-06-17 05:28 | Inpatient (IN) | payer MEDICARE, BC ==
[2020-06-17] MEDS ORDERED: Lactated Ringers 1,000 ML IV SCH ×2 (06:30→09:00)
[2020-06-17] MEDS ORDERED: Bupivacaine 0.5% 50 ML MDV ONE (06:33)
[2020-06-17] MEDS ORDERED: Lidocaine 1% with EPINEPHrine 1:100,000 50 ML MDV ONE (06:33)
[2020-06-17] MEDS ORDERED: Propofol 200 MG/20 ML SDV ONE (07:11)
[2020-06-17] MEDS ORDERED: Midazolam 1 MG/ML 2 ML SDV ONE (07:12)
[2020-06-17] MEDS ORDERED: fentaNYL 100 MCG/2 ML SDV ONE (07:12)
[2020-06-17] MEDS ORDERED: cefTRIAXone 1 GM in Sodium Chloride 0.9% 50 ML IV ONE (07:15)
[2020-06-17] MEDS ORDERED: Sodium Chloride 0.9% 10 ML Syringe IV PRN (09:05)
[2020-06-17] MEDS: Acetaminophen 500 MG Tab PO PRN ×2 (09:31→16:39)
--- NOTE | 2020-06-17 10:40 | PCM.SN.2 ---
- Free Text/Narrative Note: I was asked to comment on antibiotics by Dr. Nicholson. Patient has an infected ulcer on the left foot with osteomyelitis. Despite outpatient antibiotics he required additional debridement today. Previous cultures grew out MRSA and Citrobacter. He had been on vancomycin and ceftriaxone. Linezolid may produce a little better soft tissue penetration so this could be used in place of the vancomycin. While he is an inpatient meropenem could provide better anaerobic coverage in place of the ceftriaxone. Previous culture grew out Citrobacter and a gram- positive tho which was likely an anaerobe in addition to MRSA. Outpatient antibiotics considerations could ertapenem in addition to the staph coverage (vancomycin versus linezolid) because of its ease of use and broad- spectrum coverage including anaerobes for the complicated diabetic foot wound. Antibiotic orders were updated in the chart today. Franky Cochran MD
[2020-06-17] MEDS: oxyCODONE 5 MG Tab PO PRN ×2 (11:20→16:38)
[2020-06-17] MEDS: Multivitamins with Iron/Calcium/Folic Acid/Minerals Tab PO SCH (11:22)
[2020-06-17] MEDS: Metoprolol Succinate 25 MG Tab.ER PO SCH (11:22)
[2020-06-17] MEDS: Folic Acid 1 MG Tab PO SCH (11:25)
[2020-06-17] MEDS: Vitamin B Complex Tab PO SCH (11:25)
[2020-06-17] MEDS: Magnesium Oxide 400 MG Tab PO SCH (11:25)
[2020-06-17] MEDS: Cyanocobalamin (Vitamin B12) 1,000 MCG Tab PO SCH (11:25)
[2020-06-17] MEDS: Ascorbic Acid 500 MG Tab PO SCH (11:26)
[2020-06-17] MEDS: Cholecalciferol (Vitamin D3) 25 MCG Tab PO SCH (11:26)
[2020-06-17] MEDS: Meropenem 1 GM in Sodium Chloride 0.9% 100 ML IV SCH ×2 (11:29→21:16)
[2020-06-17] MEDS: NOVOLOG INSULIN PUMP SUBCUT SCH ×3 (11:39→21:20)
[2020-06-17] MEDS: Lactobacillus Rhamnosus GG (Probiotic) Cap PO SCH ×2 (13:22→21:19)
[2020-06-17] MEDS: Gabapentin 100 MG Cap PO SCH (14:59)
[2020-06-17] MEDS: Linezolid 600 MG in Premix Bag 1 BAG IV SCH (19:58)
[2020-06-17] MEDS: Aspirin 81 MG Tab.EC PO SCH (21:19)
[2020-06-17] MEDS: Gabapentin 300 MG Cap PO SCH (21:20)
[2020-06-18] MEDS: Meropenem 1 GM in Sodium Chloride 0.9% 100 ML IV SCH ×3 (03:17→19:30)
[2020-06-18] MEDS: Linezolid 600 MG in Premix Bag 1 BAG IV SCH ×2 (07:24→18:13)
[2020-06-18] MEDS: Pantoprazole 40 MG Tab.CR PO SCH (07:25)
[2020-06-18] MEDS: Acetaminophen 500 MG Tab PO PRN ×2 (07:38→18:13)
[2020-06-18] MEDS ORDERED: cefTRIAXone 1 GM in Sodium Chloride 0.9% 50 ML IV SCH (08:00)
[2020-06-18] MEDS: NOVOLOG INSULIN PUMP SUBCUT SCH ×4 (09:47→21:13)
[2020-06-18] MEDS: Cholecalciferol (Vitamin D3) 25 MCG Tab PO SCH (09:49)
[2020-06-18] MEDS: Magnesium Oxide 400 MG Tab PO SCH (09:50)
[2020-06-18] MEDS: Metoprolol Succinate 25 MG Tab.ER PO SCH (09:50)
[2020-06-18] MEDS: Vitamin B Complex Tab PO SCH (09:50)
[2020-06-18] MEDS: Folic Acid 1 MG Tab PO SCH (09:50)
[2020-06-18] MEDS: Multivitamins with Iron/Calcium/Folic Acid/Minerals Tab PO SCH (09:50)
[2020-06-18] MEDS: Ascorbic Acid 500 MG Tab PO SCH (09:50)
[2020-06-18] MEDS: Gabapentin 100 MG Cap PO SCH ×2 (09:50→15:23)
[2020-06-18] MEDS: Lactobacillus Rhamnosus GG (Probiotic) Cap PO SCH ×3 (09:50→21:15)
[2020-06-18] MEDS: Cyanocobalamin (Vitamin B12) 1,000 MCG Tab PO SCH (09:50)
[2020-06-18] MEDS: Aspirin 81 MG Tab.EC PO SCH ×2 (09:50→21:14)
[2020-06-18] MEDS: Gabapentin 300 MG Cap PO SCH (21:14)
[2020-06-19] MEDS: Acetaminophen 500 MG Tab PO PRN ×2 (02:16→09:02)
[2020-06-19] MEDS: Meropenem 1 GM in Sodium Chloride 0.9% 100 ML IV SCH (04:04)
[2020-06-19] MEDS: NOVOLOG INSULIN PUMP SUBCUT SCH ×4 (07:44→21:36)
[2020-06-19] MEDS: Linezolid 600 MG in Premix Bag 1 BAG IV SCH (07:44)
[2020-06-19] MEDS: Pantoprazole 40 MG Tab.CR PO SCH (07:45)
[2020-06-19] MEDS: Gabapentin 100 MG Cap PO SCH ×2 (08:52→15:39)
[2020-06-19] MEDS: Cyanocobalamin (Vitamin B12) 1,000 MCG Tab PO SCH (08:52)
[2020-06-19] MEDS: Multivitamins with Iron/Calcium/Folic Acid/Minerals Tab PO SCH (08:52)
[2020-06-19] MEDS: Ascorbic Acid 500 MG Tab PO SCH (08:52)
[2020-06-19] MEDS: Vitamin B Complex Tab PO SCH (08:52)
[2020-06-19] MEDS: Cholecalciferol (Vitamin D3) 25 MCG Tab PO SCH (08:52)
[2020-06-19] MEDS: Lactobacillus Rhamnosus GG (Probiotic) Cap PO SCH ×3 (08:53→21:35)
[2020-06-19] MEDS: Folic Acid 1 MG Tab PO SCH (08:53)
[2020-06-19] MEDS: Aspirin 81 MG Tab.EC PO SCH ×2 (09:02→21:36)
[2020-06-19] MEDS: Metoprolol Succinate 25 MG Tab.ER PO SCH (09:02)
[2020-06-19] MEDS: Magnesium Oxide 400 MG Tab PO SCH (11:45)
[2020-06-19] MEDS: Doxycycline 100 MG in Sodium Chloride 0.9% 100 ML IV SCH (19:32)
[2020-06-19] MEDS: Gabapentin 300 MG Cap PO SCH (21:35)
[2020-06-20] MEDS: Acetaminophen 500 MG Tab PO PRN ×2 (01:56→09:58)
[2020-06-20] MEDS: NOVOLOG INSULIN PUMP SUBCUT SCH ×4 (07:29→20:41)
[2020-06-20] MEDS: Pantoprazole 40 MG Tab.CR PO SCH (07:34)
[2020-06-20] MEDS: Doxycycline 100 MG in Sodium Chloride 0.9% 100 ML IV SCH ×2 (07:34→20:28)
[2020-06-20] MEDS: Vitamin B Complex Tab PO SCH (09:02)
[2020-06-20] MEDS: Multivitamins with Iron/Calcium/Folic Acid/Minerals Tab PO SCH (09:03)
[2020-06-20] MEDS: Cholecalciferol (Vitamin D3) 25 MCG Tab PO SCH (09:03)
[2020-06-20] MEDS: Cyanocobalamin (Vitamin B12) 1,000 MCG Tab PO SCH (09:03)
[2020-06-20] MEDS: Metoprolol Succinate 25 MG Tab.ER PO SCH (09:03)
[2020-06-20] MEDS: Ascorbic Acid 500 MG Tab PO SCH (09:03)
[2020-06-20] MEDS: Lactobacillus Rhamnosus GG (Probiotic) Cap PO SCH ×3 (09:03→20:38)
[2020-06-20] MEDS: Gabapentin 100 MG Cap PO SCH ×2 (09:03→14:05)
[2020-06-20] MEDS: Magnesium Oxide 400 MG Tab PO SCH (09:03)
[2020-06-20] MEDS: Folic Acid 1 MG Tab PO SCH (09:03)
[2020-06-20] MEDS: Aspirin 81 MG Tab.EC PO SCH ×2 (09:04→20:39)
[2020-06-20] MEDS: Gabapentin 300 MG Cap PO SCH (20:39)
[2020-06-21] MEDS: Pantoprazole 40 MG Tab.CR PO SCH (07:16)
[2020-06-21] MEDS: Doxycycline 100 MG in Sodium Chloride 0.9% 100 ML IV SCH (07:17)
[2020-06-21 07:18] VITALS: BP 122/78
[2020-06-21] MEDS: Lactobacillus Rhamnosus GG (Probiotic) Cap PO SCH (08:09)
[2020-06-21] MEDS: Folic Acid 1 MG Tab PO SCH (08:09)
[2020-06-21] MEDS: Metoprolol Succinate 25 MG Tab.ER PO SCH (08:09)
[2020-06-21] MEDS: Ascorbic Acid 500 MG Tab PO SCH (08:09)
[2020-06-21] MEDS: Gabapentin 100 MG Cap PO SCH (08:09)
[2020-06-21] MEDS: Magnesium Oxide 400 MG Tab PO SCH (08:09)
[2020-06-21] MEDS: NOVOLOG INSULIN PUMP SUBCUT SCH (08:09)
[2020-06-21] MEDS: Cyanocobalamin (Vitamin B12) 1,000 MCG Tab PO SCH (08:09)
[2020-06-21] MEDS: Aspirin 81 MG Tab.EC PO SCH (08:09)
[2020-06-21] MEDS: Multivitamins with Iron/Calcium/Folic Acid/Minerals Tab PO SCH (08:09)
[2020-06-21 08:10] VITALS: PULSE 72
[2020-06-21] MEDS: Cholecalciferol (Vitamin D3) 25 MCG Tab PO SCH (08:12)
[2020-06-21] MEDS: Vitamin B Complex Tab PO SCH (08:12)
--- NOTE | 2020-06-21 13:13 | DISCH ---
ADMISSION DIAGNOSES: 1. Left lateral foot tissue necrosis. 2. Diabetes type 2. 3. Chronic ischemic heart disease. 4. Coronary artery disease. 5. Essential hypertension. DISCHARGE DIAGNOSES: Incision and drainage with debridement of left lateral foot soft tissue necrosis for left foot lateral aspect soft tissue necrosis. Date of procedure 06/17/2020. Surgeon: Barron Nicholson MD. HISTORY: Michele Carrizales is a 69-year-old male who presented back to the hospital for further debridement of left lateral foot. He was discharged from the hospital earlier in the week after debridement but started to have some purulent drainage. After preoperative evaluation and discussion of possible risks and possible complications, he wished to proceed with surgical procedure. HOSPITAL COURSE: Michele had his surgery on 06/17/2020. He had no operative complications. On postoperative day 1, dressings were changed twice a day. He was on IV antibiotics. Culture did culture MRSA Staphylococcus aureus and sensitive to doxycycline. He has a PICC line in, was given antibiotics and appropriate pain medication, and was able to be discharged to home on 06/21/2020. PHYSICAL EXAMINATION: GENERAL: Michele Carrizales is a pleasant 69-year-old male. VITAL SIGNS: Height 6 feet, weight is 181 pounds, and BMI is 24. TPR is 98, 66, and 14 and blood pressure 125/72. HEENT: Negative. NECK: Supple. HEART: Regular rate and rhythm. LUNGS: Clear. ABDOMEN: Negative. EXTREMITIES: Left foot dressing dry and intact. DISPOSITION: Discharged to home. CONDITION: Stable and improving. FOLLOWUP: He is to follow up with his wound care provider in [place]. They are leaving after he is discharged. MEDICATIONS: Doxycycline 100 mg IV q.12 hours, Protonix 20 mg daily, multivitamin with folic acid b.i.d., metoprolol succinate 25 mg oral daily, magnesium 400 mg p.o. daily, lisinopril 2.5 mg daily, probiotics 1 oral 3 times a day, insulin 70 units subcutaneous as directed, Neurontin 300 mg at bedtime, Neurontin 100 mg p.o. b.i.d., ferrous sulfate 325 mg p.o. daily, vitamin B12 at 1000 mcg sublingual daily, vitamin B12 at 1000 units p.o. daily, aspirin 81 mg p.o. b.i.d., ascorbic acid bioflavonoids C-1000 bioflavonoids 1 daily, and extra-strength Tylenol 500 mg p.o. q.12 hours. DIET: Usual diet as tolerated. Drink 8 to 10 glasses of water a day. ACTIVITY: As tolerated. DISCHARGE INSTRUCTIONS: Shower and bathing: May shower. Keep operative site clean and dry. Change dressing on left foot twice daily as directed. Notify provider if any fever, increased pain, swelling, redness, or drainage. SPECIAL INSTRUCTIONS: Use incentive spirometer every hour while awake for 1 week. /[id number]
--- NOTE | 2020-06-22 08:12 | PN ---
DATE OF SERVICE: 06/20/2020 The patient has been afebrile with stable vital signs. Wound drainage is about the same. After discussion yesterday, the plan will be to proceed with doxycycline 100 mg IV for the next 6 weeks. This is being set up for starting at home tomorrow afternoon and notably he and his likely will be going to [place] later in the week. Barron Nicholson MD /[id number]
--- NOTE | 2020-06-22 10:36 | PN ---
DATE OF SERVICE: 06/18/2020 The patient has been afebrile with stable vital signs. He had some oozing from the wound yesterday, but otherwise appeared to be clean and no further bleeding this morning. Cultures thus far are growing some gram-negative rods and will await DELIVERY TABLE OPERATOR result before all [address] Mcgill and I discussed the case yesterday and we will get him started on meropenem and Zyvox as opposed to the Rocephin and vancomycin, which should provide a little bit better coverage, particularly with the more recent cultures growing an anaerobe as well. We will keep him through the weekend, waiting for DELIVERY TABLE OPERATOR results, and then get him home with IV antibiotics based on those starting on Sunday and otherwise b.i.d. wound changes. Barron Nicholson MD /[id number]
--- NOTE | 2020-06-22 11:30 | PN ---
DATE OF SERVICE: 06/19/2020 The patient has been afebrile with stable vital signs. The cultures were growing out MRSA, which were sensitive to both vancomycin, doxycycline, and Zyvox. The original Gram stain from the current cultures done 2 days ago had a gram-negative tho, which was probably the Citrobacter, which was cultured out on the 06/10 cultures. At that time, the patient also had a gram-positive tho, i.e. an anaerobe present. We will have review the antibiotic profile and see what we should be sending home with on Sunday. The options included some various combination of Zyvox, Cipro, and doxycycline perhaps. Otherwise, the wound is clean. We will continue local wound care. Barron Nicholson MD /[id number]
--- NOTE | 2020-07-04 10:43 | OR ---
DATE OF PROCEDURE: 06/17/2020 SURGEON: Barron Nicholson MD PREOPERATIVE DIAGNOSIS: Abscess with soft tissue necrosis, plantar aspect of left lateral foot. POSTOPERATIVE DIAGNOSIS: Abscess with soft tissue necrosis, plantar aspect of left lateral foot. PROCEDURES: Exploration of plantar aspect of left lateral foot with: 1. Incision and drainage of deep subfascial abscess (15583). 2. Debridement of skin, subcutaneous tissue, and fascia involving necrotic infection (12689). ANESTHESIA: IV sedation. INDICATIONS FOR PROCEDURE: The patient presents with a recurrent spreading infection in the plantar aspect of the left lateral foot. This is lateral to the area of open wound overlying the cuboid bone which was recently drained and debrided. Plan is to proceed with debridement and drainage of this new spreading infection. Potential risks including bleeding, infection, failure of the process to control further necrosis and/or infection resulting in a higher level of amputation might be required were all reviewed, and the patient wishes to proceed. DETAILS OF PROCEDURE: The patient was taken to the operating room and placed in a supine position. IV sedation was administered, after which the left foot and ankle areas were prepped and draped. Beginning at the lateral aspect of the left forefoot where a small area of drainage was noticeable, a lacrimal duct probe was placed and this easily manipulated through the area of the abscess and cavity necrosis into the previously opened area in the lateral plantar aspect of the foot. The skin, subcutaneous tissue, and muscular fascia between those 2 points was then debrided and excised creating a satisfactory opening for subsequent secondary closure. During the course of that area, a deep abscess was present underneath the muscular fascia which was drained as part of the debridement process. Cultures were obtained of both the purulent material as well as soft tissue in the area. At that point, hemostasis appeared to be satisfactory and the area appeared to be adequately drained and debrided, and it was packed with iodoform gauze. Dressing was otherwise applied over that, and the patient was taken to the recovery room in satisfactory condition. Barron Nicholson MD /[id number]
== END 2020-06-21 09:00 | disposition home or self-care (01) | DRG 264 ==
LOC: JP.SDS 05:28 → JP.MS 05:28 → EDSTATUS 08:45
PROVIDERS: ADMIT Surgery; ATTEND Surgery
PROC: 0JBR0ZZ Excision of Left Foot Subcutaneous Tissue and Fascia, Open Approach (ICD-10-PCS; principal; 2020-06-17)
DX: E11.52 Type 2 diabetes mellitus with diabetic peripheral angiopathy with gangrene (principal); L03.116 Cellulitis of left lower limb; M86.8X7 Other osteomyelitis, ankle and foot; L02.612 Cutaneous abscess of left foot; I96 Gangrene, not elsewhere classified; T85.694A Other mechanical complication of insulin pump, initial encounter; E11.69 Type 2 diabetes mellitus with other specified complication; I25.9 Chronic ischemic heart disease, unspecified; I25.10 Atherosclerotic heart disease of native coronary artery without angina pectoris; I10 Essential (primary) hypertension; E11.621 Type 2 diabetes mellitus with foot ulcer; L97.529 Non-pressure chronic ulcer of other part of left foot with unspecified severity; Z79.899 Other long term (current) drug therapy; Z79.4 Long term (current) use of insulin; Z79.82 Long term (current) use of aspirin; Z89.431 Acquired absence of right foot; B95.62 Methicillin resistant Staphylococcus aureus infection as the cause of diseases classified elsewhere; B96.89 Other specified bacterial agents as the cause of diseases classified elsewhere
CPT/HCPCS: 36415; 80053; 82962; 83735; 83880; 84100; 85027; 87070; 87075; 87077; 87186; 87205; 88304; A9270-GY; J0696; J2020; J2185; J2250; J2704; J3010; J3370; J3490; J7050; J7120

== ENCOUNTER 2020-11-26 10:17 | Inpatient (IN) | payer MEDICARE, BC ==
[2020-11-26] MEDS ORDERED: Acetaminophen 325 MG Tab PO PRN (10:48)
[2020-11-26] MEDS ORDERED: Acetaminophen 650 MG Supp RECTAL PRN (10:49)
[2020-11-26] MEDS ORDERED: Lactated Ringers 1,000 ML IV SCH (11:00)
--- NOTE | 2020-11-26 12:06 | PCM.CONS ---
H&P History of Present Illness - General Date of Service: 11/26/20 Admit Problem/Dx: Admission Diagnosis/Problem Admission Diagnosis/Problem Wound Source of Information: Patient, Family, Old Records, Provider, RN Notes Reviewed History Limitations: Reports: No Limitations - History of Present Illness Initial Comments - Free Text/Narative: Mr. Carrizales is a 70-year-old gentleman who I been asked to see by Dr. Nicholson for further suggestions concerning management and antibiotic therapy for a large diabetic foot ulcer on his left foot. He is struggled for some time with infec tions in his right foot and has had progressive amputations. 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 Over the past several months has struggled with infection of a plantar ulcer on the remaining foot. For a period of time he used a wound VAC and was able to stay off of the foot and the ulcer got to the point where it had almost healed. Now over the past month he has been more active and has been ambulating with recurrent pressure on the foot. The ulcer has increased in size significantly and now has a purulent odor. He was seen and evaluated in the clinic by Dr. Nicholson and referred for hospitalization for IV antibiotic therapy and probable debridement. There has been discussion concerning possible left below the knee amputation. He reports his diabetes control has been fairly good recently and he is on an insulin pump which seems to be working well. - Related Data Allergies/Adverse Reactions: Allergies Allergy/AdvReac Type Severity Reaction Status Date / Time No Known Allergies Allergy Verified 06/17/20 06:36 Home Medications: Home Meds Cyanocobalamin (Vitamin B-12) [Vitamin B-12] 1,000 mcg PO DAILY 10/19/14 [History] Lactobacillus Acidophilus [Acidophilus] 1 each PO TID 10/19/14 [History] Lisinopril 2.5 mg PO DAILY 10/19/14 [History] Magnesium 400 mg PO DAILY 10/19/14 [History] Cholecalciferol (Vitamin D3) [Vitamin D3] 1,000 units PO DAILY 10/11/18 [History] Aspirin [Adult Low Dose Aspirin EC] 81 mg PO BID 10/18/18 [History] Gabapentin [Neurontin] 100 mg PO BID 11/07/18 [History] Acetaminophen [Acetaminophen Extra Strength] 500 mg PO Q6H 06/03/19 [History] Ascorbic Acid/Bioflavonoids [C 1,870-Deatwyfpppbtn-VH] 1 each PO DAILY 06/03/19 [History] Ferrous Sulfate 325 mg PO DAILY 06/03/19 [History] Multivitamin with Folic Acid [One Daily Essential Tablet] 800 mcg PO DAILY 06/03/19 [History] Vitamin B Complex [Balanced B-50] 1 each PO DAILY 06/03/19 [History] Gabapentin [Neurontin] 300 mg PO BEDTIME 06/09/20 [History] Metoprolol Succinate 25 mg PO DAILY 06/09/20 [History] Pantoprazole [ProTONIX] 20 mg PO DAILY 06/09/20 [History] Insulin Aspart 70 units SUBCUT ASDIRECTED 06/16/20 [History] Rosuvastatin [Crestor] 20 mg PO QAM 11/26/20 [History] cephALEXin [Keflex] 500 mg PO TID 11/26/20 [History] Past Medical History HEENT History: Reports: Cataract, Impaired Vision, Other (See Below) Other HEENT History: Bleed behind right eye Cardiovascular History: Reports: CAD, OR, Stents Gastrointestinal History: Reports: Cholelithiasis, GERD, PUD Musculoskeletal History: Reports: Back Pain, Chronic, Osteoarthritis Endocrine/Metabolic History: Reports: Diabetes, Type II Hematologic History: Reports: Blood Transfusion(s) Dermatologic History: Reports: Other (See Below) Other Dermatologic History: left foot wound - Infectious Disease History Infectious Disease History: Reports: Chicken Pox, Measles, Mumps - Past Surgical History HEENT Surgical History: Reports: Cataract Surgery, Laser Surgery Cardiovascular Surgical History: Reports: None GI Surgical History: Reports: Bariatric Procedure, Cholecystectomy, Colonoscopy, EGD, Other (See Below) Other GI Surgeries/Procedures: Dexcom 5 blood sugar monitor left abdomen. Colon resection Endocrine Surgical History: Reports: None Neurological Surgical History: Reports: Spinal Fusion, Thoracic Spine Musculoskeletal Surgical History: Reports: Carpal Tunnel, Other (See Below) Other Musculoskeletal Surgeries/Procedures:: Left trigger finger Social & Family History - Family History Family Medical History: No Pertinent Family History - Tobacco Use Tobacco Use Status *Q: Former Tobacco User Years of Tobacco use: 25 Packs/Tins Daily: 1 Used Tobacco, but Quit: Yes Month/Year Tobacco Last Used: Second Hand Smoke Exposure: No - Caffeine Use Caffeine Use: Reports: Coffee - Recreational Drug Use Recreational Drug Use: No H&P Review of Systems - Review of Systems: Review Of Systems: See Below General: Reports: Malaise, Weakness, Fatigue. Denies: Fever, Chills HEENT: Reports: No Symptoms Pulmonary: Reports: No Symptoms Cardiovascular: Reports: No Symptoms Gastrointestinal: Reports: No Symptoms Genitourinary: Reports: No Symptoms Musculoskeletal: Reports: No Symptoms Skin: Reports: Other (Large ulcer plantar aspect of the remaining left foot) Psychiatric: Reports: No Symptoms Neurological: Reports: No Symptoms Hematologic/Lymphatic: Reports: No Symptoms Immunologic: Reports: No Symptoms Exam - Exam Exam: See Below - Vital Signs Vital Signs: Last Vital Signs Temp 97.4 F 11/26/20 10:48 Pulse 53 L 11/26/20 10:48 Resp 15 11/26/20 10:48 BP 135/72 11/26/20 10:48 Pulse Ox 98 11/26/20 10:48 Weight: 193 lb 9.054 oz - Exam General: Alert, Oriented, Cooperative, Mild Distress Neck: Supple, Trachea Midline, +2 Carotid Pulse wo Bruit Lungs: Clear to Auscultation, Normal Respiratory Effort Cardiovascular: Regular Rate, Regular Rhythm, Normal S1, Normal S2. No: Systolic Murmur, Diastolic Murmur GI/Abdominal Exam: Soft, Non-Tender, No Organomegaly, No Distention Back Exam: Normal Inspection, Full Range of Motion Extremities: No Pedal Edema, Other (Status post forefoot amputation left foot, large plantar ulcer left foot) - Patient Data Adrián Results Last 24 hrs: Microbiology 11/26/20 10:43 Gram Stain - Final Foot, Left Sepsis Event Note - Evaluation Sepsis Screening Result: No Definite Risk - Focused Exam Vital Signs: Vital Signs Temp Pulse Resp BP Pulse Ox 11/26/20 10:48 97.4 F 53 L 15 135/72 98 *Q Meaningful Use (ADM) - VTE Risk Assess *Q Each Risk Factor Represents 1 Point: Obesity ( BMI > 25 kg/m2) Total Score 1 Point Risk Factors: 1 Each Risk Factor Represents 2 Points: Age 60 - 74 Years Total Score 2 Point Risk Factors: 2 Each Risk Factor Represents 3 Points: None Total Score 3 Point Risk Factors: 0 Each Risk Factor Represents 5 Points: None Total Score 5 Point Risk Factors: 0 Venous Thromboembolism Risk Factor Score *Q: 3 Consult PN Assessment/Plan Procedures: Procedures ALANINE AMINO (ALT) (SGPT) (12/23/19) AMPUTATION OF TOE (11/15/18) ASSAY ALKALINE PHOSPHATASE (06/09/19) ASSAY OF CK (CPK) (06/09/19) ASSAY OF CREATININE (06/16/20) ASSAY OF LACTIC ACID (06/09/20) ASSAY OF MAGNESIUM (06/17/20) ASSAY OF NATRIURETIC PEPTIDE (06/17/20) ASSAY OF PHOSPHORUS (06/17/20) ASSAY OF VANCOMYCIN (06/16/20) BLOOD CULTURE FOR BACTERIA (06/09/20) C-REACTIVE PROTEIN (06/09/20) COMPLETE CBC AUTOMATED (06/17/20) COMPLETE CBC W/AUTO DIFF WBC (06/09/20) COMPREHEN METABOLIC PANEL (06/17/20) CULTR BACTERIA EXCEPT BLOOD (06/17/20) CULTURE AEROBIC IDENTIFY (06/17/20) CULTURE OTHR SPECIMN AEROBIC (06/17/20) DECALCIFY TISSUE (11/15/18) EMERGENCY DEPT VISIT (06/09/20) GLUCOSE BLOOD TEST (06/17/20) HEPATIC FUNCTION PANEL (06/09/20) INSJ PICC 5 YR+ W/O IMAGING (06/09/20) LACTATE (LD) (LDH) ENZYME (06/09/20) METABOLIC PANEL TOTAL CA (06/09/20) MICROBE SUSCEPTIBLE ADRIÁN (06/17/20) MRI JOINT LWR EXTR W/O&W/DYE (06/09/20) MRI LUMBAR SPINE W/O DYE (03/22/16) MRI LWR EXTREMITY W/O&W/DYE (03/24/19) PEDCLE FH/CH/CH/M/N/AX/G/H/F (11/15/18) PROCALCITONIN (PCT) (06/09/20) PROTHROMBIN TIME (06/09/20) ROUTINE VENIPUNCTURE (06/17/20) SMEAR GRAM STAIN (06/17/20) THER/PROPH/DIAG IV INF ADDON (06/16/20) THER/PROPH/DIAG IV INF INIT (06/16/20) TISSUE EXAM BY PATHOLOGIST (06/17/20) TISSUE EXAM BY PATHOLOGIST (11/15/18) TX/PROPH/DG ADDL SEQ IV INF (06/16/20) WOUND PREP F/N/HF/G (11/15/18) X-RAY EXAM OF FOOT (06/09/20) X-RAY EYE FOR FOREIGN BODY (03/22/16) Problem List Initiated/Reviewed/Updated: Yes My Orders Last 24 Hours: My Active Orders 11/27/20 05:00 BASIC METABOLIC PANEL,BMP [CHEM] Timed CBC WITH AUTO DIFF [HEME] Timed Plan: ASSESSMENT AND RECOMMENDATIONS DIABETIC FOOT ULCER LEFT FOOT-ulcer has been a longstanding problem over the past several months. Significantly worse over the past month when he has been more active and weightbearing. Known history of peripheral arterial disease. -Surgical management/debridement Dr. Nicholson -Arterial Doppler studies left leg -Consider below the knee amputation -Wound cultures pending -IV vancomycin and Zosyn pending culture results TYPE 2 DIABETES MELLITUS -Patient will use his insulin pump while hospitalized Requesting Provider: ADEN Date Consult Requested: 11/26/20 Reason for Consult: Diabetic foot ulcer Patient History Reviewed: Yes Notified Requestor: Yes
[2020-11-26] MEDS: Piperacillin/Tazobactam/Dext 3.375 GM in Premix Bag 1 BAG IV SCH ×3 (12:10→23:07)
[2020-11-26] MEDS ORDERED: INSULIN PUMP SUBCUT SCH (13:30)
[2020-11-26] MEDS: Gabapentin 100 MG Cap PO SCH (13:53)
[2020-11-26] MEDS ORDERED: Cephalexin 250 MG Cap PO SCH (14:00)
--- NOTE | 2020-11-26 14:24 | US ---
VL Duplex Lwr Ext Art Ltd Lt CLINICAL HISTORY: Open foot ulcer FINDINGS: Real-time and Doppler images were obtained through the left lower extremity arterial system . There is hard plaque seen throughout. There are biphasic waveforms seen in the common femoral artery the proximal profunda femoral artery proximal to distal SFA. This changes to monophasic waveforms at the SFA popliteal junction. There is also a drop-off in velocity. There is also drop off of velocity at the origin of the anterior tibial artery. Monophasic waveforms are seen downward through to the feet. There is focal elevation of velocity in the proximal anterior tibial artery. IMPRESSION: Diffuse atherosclerotic vascular occlusive disease Severe stenosis at the junction of the distal SFA and popliteal artery Probable moderate to severe stenosis near the origin of the anterior tibial artery
[2020-11-26] MEDS ORDERED: Gabapentin 300 MG Cap PO SCH (21:00)
[2020-11-26] MEDS ORDERED: Non-Formulary Medication 1 Each (Lactobacillus Acidophilus [Acidophilus] 1 EACH Tablet) PO SCH (21:00)
[2020-11-26] MEDS ORDERED: Gabapentin 100 MG Cap PO SCH ×2 (21:00)
[2020-11-26] MEDS: Lactobacillus Rhamnosus GG (Probiotic) Cap PO SCH (21:15)
[2020-11-26] MEDS: Aspirin 81 MG Tab.EC PO SCH (21:15)
[2020-11-27] MEDS ORDERED: Vancomycin 1.4 GM in Sodium Chloride 0.9% 250 ML IV SCH (02:00)
[2020-11-27] MEDS: Piperacillin/Tazobactam/Dext 3.375 GM in Premix Bag 1 BAG IV SCH (05:22)
[2020-11-27] MEDS ORDERED: Pantoprazole 40 MG Tab.CR PO SCH ×2 (07:30→09:00)
[2020-11-27] MEDS ORDERED: Ferrous Sulfate 325 MG Tab PO SCH (08:00)
[2020-11-27] MEDS: Gabapentin 100 MG Cap PO SCH (08:53)
[2020-11-27] MEDS: Aspirin 81 MG Tab.EC PO SCH (08:54)
[2020-11-27] MEDS: Lactobacillus Rhamnosus GG (Probiotic) Cap PO SCH (08:54)
[2020-11-27] MEDS ORDERED: Lisinopril 2.5 MG Tab PO SCH ×2 (09:00)
[2020-11-27] MEDS ORDERED: Non-Formulary Medication 1 Each (Magnesium [Magnesium] 200 MG Tablet) PO SCH (09:00)
[2020-11-27] MEDS ORDERED: Non-Formulary Medication 1 Each (Rosuvastatin [Crestor] 20 MG Tablet) PO SCH (09:00)
[2020-11-27] MEDS ORDERED: Rosuvastatin 10 MG Tab PO SCH (09:00)
[2020-11-27] MEDS ORDERED: Magnesium Sulfate/Water 2 GM in Premix Bag 1 BAG IV SCH (09:00)
[2020-11-27] MEDS ORDERED: Magnesium Oxide 400 MG Tab PO SCH (09:00)
[2020-11-27] MEDS ORDERED: Metoprolol Succinate 25 MG Tab.ER PO SCH ×2 (09:00)
[2020-11-27 11:36] VITALS: BP 149/76; PULSE 98
--- NOTE | 2020-11-27 11:38 | PCM.DCSUM1 ---
Discharge Summary - Hospital Course Brief History: Mr. Carrizales is a 70-year-old gentleman who was admitted from the clinic for further management of a diabetic foot ulcer on his left foot. - Discharge Data Discharge Date: 11/27/20 Discharge Disposition: Home, Self-Care 01 Condition: Good - Referral to Home Health Primary Care Physician: RICHARD Starkey - Discharge Diagnosis/Problem(s) (1) Diabetic foot ulcer SNOMED Code(s): 749378055 ICD Code: E11.621 - TYPE 2 DIABETES MELLITUS WITH FOOT ULCER; L97.509 - NON- PRESSURE CHRONIC ULCER OTH PRT UNSP FOOT W UNSP SEVERITY Status: Acute Current Visit: Yes (2) PAD (peripheral artery disease) SNOMED Code(s): 916526750 ICD Code: I73.9 - PERIPHERAL VASCULAR DISEASE, UNSPECIFIED Status: Acute Current Visit: Yes (3) Cellulitis of left foot SNOMED Code(s): 361761625 ICD Code: L03.116 - CELLULITIS OF LEFT LOWER LIMB Status: Acute Current Visit: No (4) Type 2 diabetes mellitus SNOMED Code(s): 58702765 ICD Code: E11.9 - TYPE 2 DIABETES MELLITUS WITHOUT COMPLICATIONS Status: Chronic Current Visit: No - Patient Summary/Data Hospital Course: Mr. Carrizales is a 70-year-old gentleman who I been asked to see by Dr. Nicholson for further suggestions concerning management and antibiotic therapy for a large diabetic foot ulcer on his left foot. He is struggled for some time with infections in his right foot and has had progressive amputations. 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 Over the past several months has struggled with infection of a plantar ulcer on the remaining foot. For a period of time he used a wound VAC and was able to stay off of the foot and the ulcer got to the point where it had almost healed. Now over the past month he has been more active and has been ambulating with recurrent pressure on the foot. The ulcer has increased in size significantly and now has a purulent odor. He was seen and evaluated in the clinic by Dr. Nicholson and referred for hospitalization for IV antibiotic therapy and probable debridement. There has been discussion concerning possible left below the knee amputation. He reports his diabetes control has been fairly good recently and he is on an insulin pump which seems to be working well. On admission cultures were obtained from the ulcer and he was started on IV antibiotic therapy with vancomycin and Zosyn. Arterial Doppler studies were obtained which showed poor flow below the knee on the left. This was reviewed by Dr. Nicholson who felt that revascularization should be looked at before proceeding with any surgical procedure on the foot or leg. I discussed these findings with Dr. Morales at [facility] in [place] who is agreed to accept the patient in transfer. Plan will be to proceed with angiogram and look for opportunities for revascularization. Patient will be transferred by his to [place] via private vehicle. He is encouraged to limit weightbearing on his left foot and remain on a diabetic diet. - Patient Instructions Diet: Diabetic Diet Activity: As Tolerated Other/Special Instructions: Patient will be transferred to [facility] in [facility] for further subspecialty evaluation and management - Discharge Plan *PRESCRIPTION DRUG MONITORING PROGRAM REVIEWED*: Not Applicable *COPY OF PRESCRIPTION DRUG MONITORING REPORT IN PATIENT MAGALY: Not Applicable Home Medications: Home Meds Cyanocobalamin (Vitamin B-12) [Vitamin B-12] 1,000 mcg PO DAILY 10/19/14 [History] Lactobacillus Acidophilus [Acidophilus] 1 each PO TID 10/19/14 [History] Lisinopril 2.5 mg PO DAILY 10/19/14 [History] Magnesium 400 mg PO DAILY 10/19/14 [History] Cholecalciferol (Vitamin D3) [Vitamin D3] 1,000 units PO DAILY 10/11/18 [History] Aspirin [Adult Low Dose Aspirin EC] 81 mg PO BID 10/18/18 [History] Gabapentin [Neurontin] 100 mg PO BID 11/07/18 [History] Acetaminophen [Acetaminophen Extra Strength] 500 mg PO Q6H 06/03/19 [History] Ascorbic Acid/Bioflavonoids [C 1,933-Wcmklmqbhtind-YV] 1 each PO DAILY 06/03/19 [History] Ferrous Sulfate 325 mg PO DAILY 06/03/19 [History] Multivitamin with Folic Acid [One Daily Essential Tablet] 800 mcg PO DAILY 06/03/19 [History] Vitamin B Complex [Balanced B-50] 1 each PO DAILY 06/03/19 [History] Gabapentin [Neurontin] 300 mg PO BEDTIME 06/09/20 [History] Metoprolol Succinate 25 mg PO DAILY 06/09/20 [History] Pantoprazole [ProTONIX] 20 mg PO DAILY 06/09/20 [History] Insulin Aspart 70 units SUBCUT ASDIRECTED 06/16/20 [History] Rosuvastatin [Crestor] 20 mg PO QAM 11/26/20 [History] Piperacillin/Tazobactam/Dext [Zosyn in Dextrose Iso-Osmotic 3.375 GM/50 ML] 3.375 gm IV Q6H bag 11/27/20 [Rx] - Discharge Summary/Plan Comment DC Time >30 min.: No - Patient Data Vitals - Most Recent: Last Vital Signs Temp 98.6 F 11/27/20 07:00 Pulse 75 11/27/20 08:54 Resp 14 11/27/20 07:00 BP 121/80 11/27/20 08:54 Pulse Ox 98 11/27/20 07:00 Weight - Most Recent: 193 lb 9.054 oz I&O - Last 24 hours: Intake & Output 11/26/20 11/27/20 11/27/20 22:59 06:59 14:59 Intake Total 1690 1928 1400 Output Total 500 Balance 1190 1928 1400 Lab Results - Last 24 hrs: Laboratory Results - last 24 hr 11/27/20 11/27/20 Range/Units 05:20 05:20 WBC 7.4 (4.5-11.0) K/uL RBC 3.91 L (4.30-5.90) M/uL Hgb 12.1 D (12.0-15.0) g/dL Hct 37.5 L (40.0-54.0) % MCV 96 (80-98) fL MCH 31 (27-31) pg MCHC 32 (32-36) % Plt Count 366 (150-400) K/uL Sodium 142 (140-148) mmol/L Potassium 4.4 (3.6-5.2) mmol/L Chloride 106 (100-108) mmol/L Carbon Dioxide 26 (21-32) mmol/L Anion Gap 9.6 (5.0-14.0) mmol/L BUN 15 (7-18) mg/dL Creatinine 1.0 (0.8-1.3) mg/dL Est Cr Clr Drug Dosing 76.52 mL/min Estimated GFR (MDRD) > 60 (>60) Glucose 124 H (74-106) mg/dL Calcium 8.6 (8.5-10.1) mg/dL Phosphorus 3.6 (2.5-4.9) mg/dL Magnesium 1.7 L (1.8-2.4) mg/dL Total Bilirubin 0.7 (0.2-1.0) mg/dL AST 15 (15-37) U/L ALT 22 (12-78) U/L Alkaline Phosphatase 64 (46-116) U/L Total Protein 6.3 L (6.4-8.2) g/dL Albumin 2.6 L (3.4-5.0) g/dL Globulin 3.7 H (2.3-3.5) g/dL Albumin/Globulin Ratio 0.7 L (1.2-2.2) NATHALIA Results - Last 24 hrs: Microbiology 11/26/20 10:43 Gram Stain - Final Foot, Left Wound Culture - Preliminary Med Orders - Current: Current Medications Acetaminophen (Acetaminophen 325 Mg Tab) 650 mg PO Q4H PRN PRN Reason: PAIN/FEVER Last Admin: 11/26/20 21:19 Dose: 650 mg Documented by: Acetaminophen (Acetaminophen 650 Mg Supp) 650 mg RECTAL Q4H PRN PRN Reason: FOR PAIN/FEVER Aspirin (Aspirin 81 Mg Tab.Ec) 81 mg PO BID [facility] Last Admin: 11/27/20 08:54 Dose: 81 mg Documented by: Ferrous Sulfate (Ferrous Sulfate 325 Mg Tab) 325 mg PO DAILY@0800 [facility] Last Admin: 11/27/20 08:53 Dose: 325 mg Documented by: Gabapentin (Gabapentin 300 Mg Cap) 300 mg PO BEDTIME [facility] Last Admin: 11/26/20 21:16 Dose: 300 mg Documented by: Gabapentin (Gabapentin 100 Mg Cap) 100 mg PO BID@0800,1400 [facility] Last Admin: 11/27/20 08:53 Dose: 100 mg Documented by: Lactated Ringer's (Ringers, Lactated) 1,000 mls @ 100 mls/hr IV ASDIRECTED [facility] Last Admin: 11/27/20 00:46 Dose: 100 mls/hr Documented by: Vancomycin HCl 1.4 gm/ Sodium (Chloride) 250 mls @ 150 mls/hr IV Q12H [facility] Last Admin: 11/27/20 01:02 Dose: 150 mls/hr Documented by: Piperacillin/Tazobactam/ (Dextrose 3.375 gm/ Premix) 50 mls @ 100 mls/hr IV Q6H [facility] Last Admin: 11/27/20 05:22 Dose: 100 mls/hr Documented by: Lactobacillus Rhamnosus (Lactobacillus Rhamnosus Gg (Probiotic) Cap) 1 cap PO TID [facility] Last Admin: 11/27/20 08:54 Dose: 1 cap Documented by: Lisinopril (Lisinopril 2.5 Mg Tab) 2.5 mg PO DAILY [facility] Last Admin: 11/27/20 08:53 Dose: 2.5 mg Documented by: Magnesium Oxide (Magnesium Oxide 400 Mg Tab) 400 mg PO DAILY [facility] Last Admin: 11/27/20 08:54 Dose: 400 mg Documented by: Metoprolol Succinate (Metoprolol Succinate 25 Mg Tab.Er) 25 mg PO DAILY [facility] Last Admin: 11/27/20 08:54 Dose: 25 mg Documented by: Insulin Pump*Pom* 0 each SUBCUT ASDIRECTED [facility] Pantoprazole Sodium (Pantoprazole 40 Mg Tab.Cr) 40 mg PO ACBREAKFAST [facility] Last Admin: 11/27/20 06:51 Dose: 40 mg Documented by: Rosuvastatin Calcium (Rosuvastatin 10 Mg Tab) 20 mg PO DAILY [facility] Last Admin: 11/27/20 08:55 Dose: 20 mg Documented by: Discontinued Medications Cephalexin (Cephalexin 250 Mg Cap) 250 mg PO TID [facility] Vancomycin HCl 1.75 gm/ Sodium (Chloride) 250 mls @ 150 mls/hr IV ONETIME ONE Stop: 11/26/20 15:39 Last Admin: 11/26/20 13:53 Dose: 150 mls/hr Documented by: Magnesium Sulfate 2 gm/ Premix 50 mls @ 25 mls/hr IV Q6H [facility] Stop: 11/27/20 10:59 Last Admin: 11/27/20 09:40 Dose: 25 mls/hr Documented by: - Exam General: Reports: Alert, Oriented, Cooperative, Mild Distress Lungs: Reports: Clear to Auscultation, Normal Respiratory Effort Cardiovascular: Reports: Regular Rate, Regular Rhythm, No Murmurs GI/Abdominal Exam: Soft, Non-Tender, No Organomegaly, No Distention Extremities: Other (Large ulcer plantar aspect of the left foot)
--- NOTE | 2020-11-29 17:24 | PN ---
DATE OF SERVICE: 11/27/2020 The patient has been clinically stable. He has quite a bit of drainage from the left foot which for a diabetic foot infection with gram-positive cocci and gram-negative rods. The patient did have an arterial duplex scan which shows severe stenosis of the junction of the superficial femoral artery and popliteal artery as well as stenosis of the anterior tibial artery. Given this, he clearly needs to have some revascularization undertaken prior to any consideration of amputation as a below-knee amputation would likely fail to heal and this will be discussed with Dr. Pritchard and arrangements made to have him set up for some vascular intervention. Barron Nicholson MD /[id number]
== END 2020-11-27 12:20 | DRG 638 ==
LOC: JP.ICU 10:17 → JP.MS 11-27 04:37 → JP.ICU 11-27 04:42
PROVIDERS: ADMIT Surgery; ATTEND Surgery
DX: E11.621 Type 2 diabetes mellitus with foot ulcer (principal); L03.116 Cellulitis of left lower limb; K91.2 Postsurgical malabsorption, not elsewhere classified; L97.529 Non-pressure chronic ulcer of other part of left foot with unspecified severity; E11.51 Type 2 diabetes mellitus with diabetic peripheral angiopathy without gangrene; I25.10 Atherosclerotic heart disease of native coronary artery without angina pectoris; E78.5 Hyperlipidemia, unspecified; E11.40 Type 2 diabetes mellitus with diabetic neuropathy, unspecified; E53.8 Deficiency of other specified B group vitamins; E53.9 Vitamin B deficiency, unspecified; E55.9 Vitamin D deficiency, unspecified; E60 Dietary zinc deficiency; E50.9 Vitamin A deficiency, unspecified; E83.00 Disorder of copper metabolism, unspecified; H54.7 Unspecified visual loss; K21.9 Gastro-esophageal reflux disease without esophagitis; I70.202 Unspecified atherosclerosis of native arteries of extremities, left leg; G89.29 Other chronic pain; M54.9 Dorsalgia, unspecified; M19.90 Unspecified osteoarthritis, unspecified site; Z98.49 Cataract extraction status, unspecified eye; Z89.421 Acquired absence of other right toe(s); Z90.49 Acquired absence of other specified parts of digestive tract; Z79.4 Long term (current) use of insulin; Z79.82 Long term (current) use of aspirin; Z79.899 Other long term (current) drug therapy; Z95.5 Presence of coronary angioplasty implant and graft; Z98.84 Bariatric surgery status; Z98.890 Other specified postprocedural states; Z98.1 Arthrodesis status; Z87.891 Personal history of nicotine dependence
CPT/HCPCS: 36415; 80053; 83735; 84100; 85027; 87070; 87077; 87186; 87205; 93926-26; 93926-LT; A9270-GY; J2543; J3370; J3475; J7050; J7120

== ENCOUNTER 2021-10-08 19:23 | Inpatient (IN) | payer MEDICARE, BC ==
[2021-10-08] MEDS ORDERED: Sodium Chloride 0.9% 1,000 ML IV SCH (21:00)
[2021-10-08 21:14] LABS: CORONAVIRUS COVID-19 NAA NEGATIVE (NEGATIVE)
[2021-10-09] MEDS ORDERED: LORazepam 2 MG/ML SDV IVPUSH PRN (00:55)
[2021-10-09] MEDS ORDERED: Ondansetron 4 MG/2 ML SDV IV PRN (00:55)
[2021-10-09] MEDS ORDERED: oxyCODONE 5 MG Tab PO PRN (00:55)
[2021-10-09] MEDS ORDERED: Ondansetron 4 MG Tab.DIS PO PRN (00:55)
[2021-10-09] MEDS ORDERED: Acetaminophen 325 MG Tab PO PRN (00:55)
[2021-10-09] MEDS ORDERED: Magnesium Hydroxide 400 MG/5 ML Susp 30 ML Cup PO PRN (00:55)
[2021-10-09] MEDS ORDERED: Sodium Chloride 0.9% 1,000 ML IV SCH (00:55)
[2021-10-09] MEDS ORDERED: Meropenem 1 GM in Sodium Chloride 0.9% 100 ML IV SCH (01:00)
[2021-10-09] MEDS: Pantoprazole 40 MG Tab.CR PO SCH (08:51)
[2021-10-09] MEDS: Rosuvastatin 10 MG Tab PO SCH (08:52)
[2021-10-09] MEDS: Lactobacillus Rhamnosus GG (Probiotic) Cap PO SCH ×2 (08:53→20:31)
[2021-10-09] MEDS: Aspirin 81 MG Tab.EC PO SCH ×2 (08:53→20:31)
[2021-10-09] MEDS: Magnesium Oxide 400 MG Tab PO SCH (08:54)
[2021-10-09] MEDS: Gabapentin 100 MG Cap PO SCH ×2 (08:55→14:01)
[2021-10-09] MEDS: Lisinopril 2.5 MG Tab PO SCH (08:57)
[2021-10-09] MEDS ORDERED: Potassium Chloride 20 MEQ Tab.ER PO ONE (09:00)
[2021-10-09] MEDS: Multivitamins with Iron/Calcium/Folic Acid/Minerals Tab PO SCH (09:01)
[2021-10-09] MEDS: Metoprolol Succinate 25 MG Tab.ER PO SCH (09:01)
[2021-10-09] MEDS: Cyanocobalamin (Vitamin B12) 1,000 MCG Tab PO SCH (09:03)
[2021-10-09] MEDS: Vitamin B Complex Tab PO SCH (09:03)
[2021-10-09] MEDS: Ascorbic Acid 500 MG Tab PO SCH (09:04)
[2021-10-09] MEDS: Cholecalciferol (Vitamin D3) 25 MCG Tab PO SCH (09:04)
[2021-10-09] MEDS: Meropenem 1 GM in Sodium Chloride 0.9% 100 ML IV SCH ×2 (10:29→18:18)
[2021-10-09] MEDS ORDERED: Gabapentin 100 MG Cap PO SCH (11:00)
[2021-10-09] MEDS: Gabapentin 300 MG Cap PO SCH (20:31)
[2021-10-10] MEDS: Meropenem 1 GM in Sodium Chloride 0.9% 100 ML IV SCH ×3 (02:28→18:31)
[2021-10-10] MEDS: Vitamin B Complex Tab PO SCH (08:01)
[2021-10-10] MEDS: Lisinopril 2.5 MG Tab PO SCH (08:01)
[2021-10-10] MEDS: Cyanocobalamin (Vitamin B12) 1,000 MCG Tab PO SCH (08:01)
[2021-10-10] MEDS: Aspirin 81 MG Tab.EC PO SCH ×2 (08:01→20:41)
[2021-10-10] MEDS: Pantoprazole 40 MG Tab.CR PO SCH (08:01)
[2021-10-10] MEDS: Ascorbic Acid 500 MG Tab PO SCH (08:01)
[2021-10-10] MEDS: Cholecalciferol (Vitamin D3) 25 MCG Tab PO SCH (08:01)
[2021-10-10] MEDS: Magnesium Oxide 400 MG Tab PO SCH (08:01)
[2021-10-10] MEDS: Multivitamins with Iron/Calcium/Folic Acid/Minerals Tab PO SCH (08:01)
[2021-10-10] MEDS: Gabapentin 100 MG Cap PO SCH ×2 (08:01→13:25)
[2021-10-10] MEDS: Lactobacillus Rhamnosus GG (Probiotic) Cap PO SCH ×2 (08:02→20:41)
[2021-10-10] MEDS: Metoprolol Succinate 25 MG Tab.ER PO SCH (08:02)
[2021-10-10] MEDS: Rosuvastatin 10 MG Tab PO SCH (08:02)
[2021-10-10] MEDS ORDERED: Gadoteridol 279.3 MG/ML 15 ML SDV IV SCH (12:00)
[2021-10-10] MEDS: Gabapentin 300 MG Cap PO SCH (20:41)
[2021-10-11] MEDS: Meropenem 1 GM in Sodium Chloride 0.9% 100 ML IV SCH ×3 (01:36→17:13)
[2021-10-11] MEDS: Pantoprazole 40 MG Tab.CR PO SCH (07:28)
[2021-10-11] MEDS: Lactobacillus Rhamnosus GG (Probiotic) Cap PO SCH ×2 (08:40→20:11)
[2021-10-11] MEDS ORDERED: Potassium Chloride 20 MEQ Tab.ER PO ONE ×2 (08:40→17:00)
[2021-10-11] MEDS: Gabapentin 100 MG Cap PO SCH ×2 (08:40→14:03)
[2021-10-11] MEDS: Vitamin B Complex Tab PO SCH (08:41)
[2021-10-11] MEDS: Ascorbic Acid 500 MG Tab PO SCH (08:41)
[2021-10-11] MEDS: Multivitamins with Iron/Calcium/Folic Acid/Minerals Tab PO SCH (08:41)
[2021-10-11] MEDS: Magnesium Oxide 400 MG Tab PO SCH (08:41)
[2021-10-11] MEDS: Cyanocobalamin (Vitamin B12) 1,000 MCG Tab PO SCH (08:41)
[2021-10-11] MEDS: Metoprolol Succinate 25 MG Tab.ER PO SCH (08:41)
[2021-10-11] MEDS: Cholecalciferol (Vitamin D3) 25 MCG Tab PO SCH (08:42)
[2021-10-11] MEDS: Rosuvastatin 10 MG Tab PO SCH (08:42)
[2021-10-11] MEDS: Lisinopril 2.5 MG Tab PO SCH (08:42)
[2021-10-11] MEDS: Aspirin 81 MG Tab.EC PO SCH ×2 (08:42→20:11)
[2021-10-11] MEDS: Gabapentin 300 MG Cap PO SCH (20:11)
[2021-10-12] MEDS: Meropenem 1 GM in Sodium Chloride 0.9% 100 ML IV SCH ×2 (02:27→11:00)
[2021-10-12] MEDS: Lactobacillus Rhamnosus GG (Probiotic) Cap PO SCH (08:08)
[2021-10-12] MEDS: Ascorbic Acid 500 MG Tab PO SCH (08:08)
[2021-10-12] MEDS: Magnesium Oxide 400 MG Tab PO SCH (08:08)
[2021-10-12] MEDS: Lisinopril 2.5 MG Tab PO SCH (08:09)
[2021-10-12] MEDS: Pantoprazole 40 MG Tab.CR PO SCH (08:09)
[2021-10-12] MEDS: Vitamin B Complex Tab PO SCH (08:09)
[2021-10-12] MEDS: Metoprolol Succinate 25 MG Tab.ER PO SCH (08:09)
[2021-10-12] MEDS: Rosuvastatin 10 MG Tab PO SCH (08:09)
[2021-10-12] MEDS: Multivitamins with Iron/Calcium/Folic Acid/Minerals Tab PO SCH (08:10)
[2021-10-12] MEDS: Aspirin 81 MG Tab.EC PO SCH (08:10)
[2021-10-12] MEDS: Cholecalciferol (Vitamin D3) 25 MCG Tab PO SCH (08:10)
[2021-10-12] MEDS: Gabapentin 100 MG Cap PO SCH (08:11)
[2021-10-12] MEDS: Cyanocobalamin (Vitamin B12) 1,000 MCG Tab PO SCH (09:44)
[2021-10-12 11:06] VITALS: BP 153/77; PULSE 59
== END 2021-10-12 14:44 | disposition home or self-care (01) | DRG 638 ==
LOC: JP.ED 19:23 → JP.MS 10-09 00:12
PROVIDERS: ADMIT Internal Medicine; ATTEND Hospitalist
PROC: 02HV33Z Insertion of Infusion Device into Superior Vena Cava, Percutaneous Approach (ICD-10-PCS; principal; 2021-10-11)
PROC: XW033N5 Introduction of Meropenem-vaborbactam Anti-infective into Peripheral Vein, Percutaneous Approach, New Technology Group 5 (ICD-10-PCS; 2021-10-11)
DX: E11.69 Type 2 diabetes mellitus with other specified complication (principal); L97.529 Non-pressure chronic ulcer of other part of left foot with unspecified severity; M86.9 Osteomyelitis, unspecified; H54.7 Unspecified visual loss; L03.116 Cellulitis of left lower limb; K56.7 Ileus, unspecified; L97.422 Non-pressure chronic ulcer of left heel and midfoot with fat layer exposed; E11.628 Type 2 diabetes mellitus with other skin complications; E11.621 Type 2 diabetes mellitus with foot ulcer; I73.9 Peripheral vascular disease, unspecified; I25.10 Atherosclerotic heart disease of native coronary artery without angina pectoris; K21.9 Gastro-esophageal reflux disease without esophagitis; M19.90 Unspecified osteoarthritis, unspecified site; G89.29 Other chronic pain; M54.9 Dorsalgia, unspecified; E66.9 Obesity, unspecified; K52.9 Noninfective gastroenteritis and colitis, unspecified; E11.22 Type 2 diabetes mellitus with diabetic chronic kidney disease; Z20.822 Contact with and (suspected) exposure to COVID-19; Z68.26 Body mass index [BMI] 26.0-26.9, adult; Z86.14 Personal history of Methicillin resistant Staphylococcus aureus infection; Z79.82 Long term (current) use of aspirin; Z79.4 Long term (current) use of insulin; Z79.899 Other long term (current) drug therapy; I25.2 Old myocardial infarction; Z95.5 Presence of coronary angioplasty implant and graft; Z90.49 Acquired absence of other specified parts of digestive tract; Z98.1 Arthrodesis status; Z98.49 Cataract extraction status, unspecified eye; Z98.84 Bariatric surgery status
CPT/HCPCS: 0241U; 36415; 36569; 73630-LT; 73723-LT; 74176; 80048; 80053; 80202; 81001; 82947; 84132; 85025; 85027; 85651; 86140; 96365; 99284; 99285-25; A9270-GY; A9579; J2185; J3370; J7030; J7050

== ENCOUNTER 2022-11-17 05:51 | Inpatient (IN) | payer MEDICARE, BC ==
[2022-11-17] MEDS ORDERED: Acetaminophen 500 MG Tab PO ONE (06:28)
[2022-11-17] MEDS ORDERED: Meropenem 500 MG SDV ONE ×2 (06:56→08:06)
[2022-11-17] MEDS ORDERED: Lidocaine 1% with EPINEPHrine 1:100,000 50 ML MDV ONE (06:56)
[2022-11-17] MEDS ORDERED: Bupivacaine 0.5% 50 ML MDV ONE (06:56)
[2022-11-17] MEDS ORDERED: Bacitracin Oint 1 GM U/D Packet ONE (06:57)
[2022-11-17 07:07] LABS: CALCIUM 8.7 mg/dL (8.5-10.1); CREATININE 1.3 mg/dL (0.8-1.3); EST CRCL DRUG DOSING (CG) 57.21 mL/min; MAGNESIUM 1.6 mg/dL (1.8-2.4); PHOSPHORUS 4.3 mg/dL (2.5-4.9); POTASSIUM,K 3.7 mmol/L (3.6-5.2)
[2022-11-17 07:08] LABS: ANION GAP 13.7 mmol/L (5.0-14.0)
[2022-11-17] MEDS: Lactated Ringers 1,000 ML IV SCH ×2 (07:09→13:10)
[2022-11-17] MEDS ORDERED: fentaNYL 100 MCG/2 ML SDV ONE (07:11)
[2022-11-17] MEDS ORDERED: Propofol 200 MG/20 ML SDV ONE (07:12)
[2022-11-17] MEDS ORDERED: Sodium Chloride 0.9% 10 ML ONE (08:06)
[2022-11-17] MEDS ORDERED: Linezolid 600 MG/300 ML Premix Bag IRR ONE (08:10)
[2022-11-17] MEDS ORDERED: Linezolid 600 MG in Premix Bag 1 BAG IV ONE (08:30)
[2022-11-17] MEDS ORDERED: Glucagon,Human Recombinant 1 MG Vial IM PRN (09:45)
[2022-11-17] MEDS ORDERED: 50% Dextrose in Water 50 ML Syringe IVPUSH PRN (09:45)
[2022-11-17] MEDS ORDERED: Glucose Gel 15 GM in 37.5 GM Tube PO PRN (09:45)
[2022-11-17] MEDS ORDERED: Ondansetron 4 MG/2 ML SDV IVPUSH PRN (09:54)
[2022-11-17] MEDS: Pantoprazole 40 MG Tab.CR PO SCH (10:56)
[2022-11-17] MEDS: Metoprolol Succinate 25 MG Tab.ER PO SCH (10:57)
[2022-11-17] MEDS: Gabapentin 100 MG Cap PO SCH (11:00)
[2022-11-17] MEDS ORDERED: Insulin Lispro 100 Unit/ML 3 ML KwikPen SUBCUT SCH (11:00)
[2022-11-17] MEDS: Meropenem 500 MG in Sodium Chloride 0.9% 50 ML IV SCH ×2 (13:11→20:38)
[2022-11-17] MEDS: NOVOLOG INSULIN PUMP SUBCUT SCH ×2 (17:52→20:41)
[2022-11-17] MEDS: Gabapentin 300 MG Cap PO SCH (20:39)
[2022-11-17] MEDS: Insulin Glargine,Human Rec. Analog 100 Units/ML 3 ML Pen SUBCUT SCH (20:47)
[2022-11-17] MEDS: Linezolid 600 MG in Premix Bag 1 BAG IV SCH (21:34)
[2022-11-17] MEDS: Acetaminophen 325 MG Tab PO PRN (22:57)
[2022-11-18] MEDS: Lactated Ringers 1,000 ML IV SCH (01:09)
[2022-11-18] MEDS: Meropenem 500 MG in Sodium Chloride 0.9% 50 ML IV SCH ×4 (02:32→19:40)
[2022-11-18 04:26] LABS: BASOPHILS ABSOLUTE AUTO 0.05 K/uL (0.00-0.10); BASOPHILS PERCENT AUTO 0.5 % (0.1-1.3); EOSINOPHILS ABSOLUTE AUTO 0.67 K/uL (0.00-0.40); EOSINOPHILS PERCENT AUTO 7.1 % (0.0-5.4); HEMATOCRIT 31.7 % (38.4-49.7); HEMOGLOBIN 10.8 g/dL (12.9-16.9); IMMATURE GRAN ABSOLUTE AUTO 0.05 K/uL (0.00-0.23); IMMATURE GRAN PERCENT AUTO 0.5 % (0.0-0.7); LYMPHOCYTES ABSOLUTE AUTO 1.78 K/uL (0.8-3.3); LYMPHOCYTES PERCENT AUTO 18.8 % (11.4-47.7); MEAN CORPUSCULAR HGB CONC 34.1 g/dL (31.6-35.5); MEAN CORPUSCULAR VOLUME 94.1 fL (81.4-99.0); MONOCYTES ABSOLUTE AUTO 0.87 K/uL (0.20-0.90); MONOCYTES PERCENT AUTO 9.2 % (3.3-12.6); NEUTROPHILS ABSOLUTE AUTO 6.07 K/uL (1.0-7.6); NEUTROPHILS PERCENT AUTO 63.9 % (40.0-78.1); PLATELET COUNT,PLT 288 K/uL (130-375); RED BLOOD CELL COUNT 3.37 M/uL (4.14-5.76); WHITE BLOOD CELL COUNT,WBC 9.5 K/uL (3.2-11.0)
[2022-11-18 04:54] LABS: A/G RATIO 0.7 (1.2-2.2); ALANINE AMINOTRANSFERASE,ALT 24 U/L (12-78); ALBUMIN 2.5 g/dL (3.4-5.0); ALKALINE PHOSPHATASE 82 U/L (46-116); ASPARTATE AMNIOTRANSFERASE,AST 22 U/L (15-37); BILIRUBIN TOTAL 0.7 mg/dL (0.2-1.0); BLOOD UREA NITROGEN,BUN 11 mg/dL (7-18); CALCIUM 8.6 mg/dL (8.5-10.1); CARBON DIOXIDE,CO2 28 mmol/L (21-32); CHLORIDE,CL 105 mmol/L (100-108); CREATININE 1.3 mg/dL (0.8-1.3); EST CRCL DRUG DOSING (CG) 57.21 mL/min; ESTIMATED GFR 59 mL/min (>60); GLUCOSE RANDOM 116 mg/dL (74-106); MAGNESIUM 1.6 mg/dL (1.8-2.4); POTASSIUM,K 4.6 mmol/L (3.6-5.2); PROTEIN TOTAL,TP 6.3 g/dL (6.4-8.2); SODIUM,NA 139 mmol/L (140-148)
[2022-11-18 04:57] LABS: ANION GAP 10.6 mmol/L (5.0-14.0)
[2022-11-18] MEDS: Acetaminophen 325 MG Tab PO PRN (07:29)
[2022-11-18] MEDS: NOVOLOG INSULIN PUMP SUBCUT SCH ×4 (08:33→19:44)
[2022-11-18] MEDS: Pantoprazole 40 MG Tab.CR PO SCH (08:34)
[2022-11-18] MEDS: Gabapentin 100 MG Cap PO SCH ×2 (08:35→11:27)
[2022-11-18] MEDS: Aspirin 81 MG Tab.EC PO SCH (08:35)
[2022-11-18] MEDS: Rosuvastatin 10 MG Tab PO SCH (08:35)
[2022-11-18] MEDS: Lisinopril 2.5 MG Tab PO SCH (08:36)
[2022-11-18] MEDS ORDERED: Sodium Chloride 0.9% 10 ML Syringe IV PRN (08:36)
[2022-11-18] MEDS: Metoprolol Succinate 25 MG Tab.ER PO SCH (08:37)
[2022-11-18] MEDS: Linezolid 600 MG in Premix Bag 1 BAG IV SCH ×2 (09:14→21:17)
[2022-11-18] MEDS ORDERED: Acetaminophen 500 MG Tab PO PRN (17:31)
[2022-11-18] MEDS ORDERED: diphenhydrAMINE 25 MG Cap PO PRN (17:32)
[2022-11-18] MEDS: Gabapentin 300 MG Cap PO SCH (21:17)
[2022-11-18] MEDS: Insulin Glargine,Human Rec. Analog 100 Units/ML 3 ML Pen SUBCUT SCH (21:27)
[2022-11-19] MEDS: Meropenem 500 MG in Sodium Chloride 0.9% 50 ML IV SCH ×2 (02:33→08:11)
[2022-11-19] MEDS: NOVOLOG INSULIN PUMP SUBCUT SCH ×4 (07:48→19:55)
[2022-11-19] MEDS ORDERED: Linezolid 600 MG/300 ML Premix Bag IRR SCH (08:00)
[2022-11-19] MEDS: Linezolid 600 MG in Premix Bag 1 BAG IV SCH ×2 (08:14→19:54)
[2022-11-19] MEDS: Gabapentin 100 MG Cap PO SCH ×2 (08:14→11:23)
[2022-11-19] MEDS: Pantoprazole 40 MG Tab.CR PO SCH (08:14)
[2022-11-19] MEDS: Rosuvastatin 10 MG Tab PO SCH (08:14)
[2022-11-19] MEDS: Lisinopril 2.5 MG Tab PO SCH (08:14)
[2022-11-19] MEDS: Aspirin 81 MG Tab.EC PO SCH (08:15)
[2022-11-19] MEDS: Metoprolol Succinate 25 MG Tab.ER PO SCH (08:15)
[2022-11-19] MEDS: Gabapentin 300 MG Cap PO SCH (20:28)
[2022-11-20 02:18] VITALS: PULSE 61
[2022-11-20] MEDS: Linezolid 600 MG in Premix Bag 1 BAG IV SCH (07:54)
[2022-11-20] MEDS: NOVOLOG INSULIN PUMP SUBCUT SCH (07:55)
[2022-11-20] MEDS: Pantoprazole 40 MG Tab.CR PO SCH (07:56)
[2022-11-20] MEDS: Metoprolol Succinate 25 MG Tab.ER PO SCH (09:05)
[2022-11-20] MEDS: Rosuvastatin 10 MG Tab PO SCH (09:05)
[2022-11-20] MEDS: Gabapentin 100 MG Cap PO SCH (09:06)
[2022-11-20] MEDS: Lisinopril 2.5 MG Tab PO SCH (09:06)
[2022-11-20 09:07] VITALS: BP 154/78
[2022-11-20] MEDS: Aspirin 81 MG Tab.EC PO SCH (09:07)
== END 2022-11-20 10:45 | disposition home or self-care (01) | DRG 464 ==
LOC: JP.SDS 05:51 → JP.MS 09:40
PROVIDERS: ADMIT Surgery; ATTEND Surgery
PROC: 0JBQ0ZZ Excision of Right Foot Subcutaneous Tissue and Fascia, Open Approach (ICD-10-PCS; principal; 2022-11-17)
DX: T87.43 Infection of amputation stump, right lower extremity (principal); I96 Gangrene, not elsewhere classified; L02.611 Cutaneous abscess of right foot; L03.115 Cellulitis of right lower limb; I25.10 Atherosclerotic heart disease of native coronary artery without angina pectoris; E78.5 Hyperlipidemia, unspecified; E11.9 Type 2 diabetes mellitus without complications; Y83.8 Other surgical procedures as the cause of abnormal reaction of the patient, or of later complication, without mention of misadventure at the time of the procedure; B95.62 Methicillin resistant Staphylococcus aureus infection as the cause of diseases classified elsewhere; Z90.49 Acquired absence of other specified parts of digestive tract; Z95.5 Presence of coronary angioplasty implant and graft; Z98.84 Bariatric surgery status; Z87.891 Personal history of nicotine dependence; Z88.5 Allergy status to narcotic agent; Z98.890 Other specified postprocedural states
CPT/HCPCS: 36415; 80048; 80053; 83735; 83880; 84100; 85025; 87070; 87075; 87077; 87186; 87205; 88304; 88312; 93926-RT; A9270-GY; J1815-GY; J2020; J2185; J2704; J3010; J3490; J7120; U0002

== ENCOUNTER 2022-12-14 14:32 | Inpatient (IN) | payer MEDICARE, BC ==
[2022-12-14 16:12] LABS: BASOPHILS ABSOLUTE AUTO 0.03 K/uL (0.00-0.10); BASOPHILS PERCENT AUTO 0.4 % (0.1-1.3); EOSINOPHILS PERCENT AUTO 1.3 % (0.0-5.4); HEMATOCRIT 29.1 % (38.4-49.7); HEMOGLOBIN 10.2 g/dL (12.9-16.9); IMMATURE GRAN ABSOLUTE AUTO 0.02 K/uL (0.00-0.23); IMMATURE GRAN PERCENT AUTO 0.3 % (0.0-0.7); LYMPHOCYTES PERCENT AUTO 14.7 % (11.4-47.7); MEAN CORPUSCULAR HEMOGLOBIN 31.6 pg (31.6-35.5); MEAN CORPUSCULAR HGB CONC 35.1 g/dL (31.6-35.5); MEAN CORPUSCULAR VOLUME 90.1 fL (81.4-99.0); MONOCYTES ABSOLUTE AUTO 0.87 K/uL (0.20-0.90); MONOCYTES PERCENT AUTO 11.6 % (3.3-12.6); NEUTROPHILS ABSOLUTE AUTO 5.36 K/uL (1.0-7.6); NEUTROPHILS PERCENT AUTO 71.7 % (40.0-78.1); PLATELET COUNT,PLT 97 K/uL (130-375); RED BLOOD CELL COUNT 3.23 M/uL (4.14-5.76); WHITE BLOOD CELL COUNT,WBC 7.5 K/uL (3.2-11.0)
[2022-12-14 16:31] LABS: A/G RATIO 0.8 (1.2-2.2); ALANINE AMINOTRANSFERASE,ALT 28 U/L (12-78); ALKALINE PHOSPHATASE 81 U/L (46-116); ASPARTATE AMNIOTRANSFERASE,AST 22 U/L (15-37); BILIRUBIN TOTAL 0.6 mg/dL (0.2-1.0); BLOOD UREA NITROGEN,BUN 22 mg/dL (7-18); C-REACTIVE PROTEIN 4.35 mg/dL (0.0-0.3); CALCIUM 8.9 mg/dL (8.5-10.1); CARBON DIOXIDE,CO2 21 mmol/L (21-32); CHLORIDE,CL 97 mmol/L (100-108); CREATININE 1.6 mg/dL (0.8-1.3); EST CRCL DRUG DOSING (CG) 46.48 mL/min; ESTIMATED GFR 46 mL/min (>60); GLUCOSE RANDOM 198 mg/dL (74-106); POTASSIUM,K 4.7 mmol/L (3.6-5.2); SODIUM,NA 129 mmol/L (140-148)
[2022-12-14 16:32] LABS: ANION GAP 15.7 mmol/L (5.0-14.0)
[2022-12-14] MEDS ORDERED: Sodium Chloride 0.9% 10 ML Syringe FLUSH PRN (16:43)
[2022-12-14] MEDS ORDERED: Acetaminophen 325 MG Tab PO PRN (18:10)
[2022-12-14] MEDS ORDERED: Ondansetron 4 MG/2 ML SDV IV PRN (18:10)
[2022-12-14] MEDS ORDERED: Magnesium Hydroxide 400 MG/5 ML Susp 30 ML Cup PO PRN (18:10)
[2022-12-14] MEDS ORDERED: Sennosides/Docusate Sodium 50-8.6 MG Tab PO PRN (18:10)
[2022-12-14] MEDS ORDERED: HYDROmorphone 1 MG/ML Syringe IVPUSH PRN (18:10)
[2022-12-14] MEDS ORDERED: oxyCODONE 5 MG Tab PO PRN (18:10)
[2022-12-14] MEDS ORDERED: Ondansetron 4 MG Tab.DIS PO PRN (18:10)
[2022-12-14] MEDS: Meropenem 1 GM in Sodium Chloride 0.9% 100 ML IV SCH (18:33)
[2022-12-14] MEDS: Sodium Chloride 0.9% 1,000 ML IV SCH (18:34)
[2022-12-14] MEDS: Linezolid 600 MG in Premix Bag 1 BAG IV SCH (20:49)
[2022-12-14] MEDS: Lactobacillus Rhamnosus GG (Probiotic) Cap PO SCH (20:54)
[2022-12-14] MEDS: Aspirin 81 MG Tab.EC PO SCH (20:54)
[2022-12-14] MEDS: Gabapentin 300 MG Cap PO SCH (20:54)
[2022-12-15] MEDS: Meropenem 1 GM in Sodium Chloride 0.9% 100 ML IV SCH ×3 (00:48→17:39)
[2022-12-15 04:49] LABS: HEMATOCRIT 26.2 % (38.4-49.7); HEMOGLOBIN 9.2 g/dL (12.9-16.9); MEAN CORPUSCULAR HEMOGLOBIN 31.6 pg (31.6-35.5); MEAN CORPUSCULAR HGB CONC 35.1 g/dL (31.6-35.5); RED BLOOD CELL COUNT 2.91 M/uL (4.14-5.76); WHITE BLOOD CELL COUNT,WBC 7.5 K/uL (3.2-11.0)
[2022-12-15 04:59] LABS: CALCIUM 8.3 mg/dL (8.5-10.1); CREATININE 1.5 mg/dL (0.8-1.3); EST CRCL DRUG DOSING (CG) 49.58 mL/min; POTASSIUM,K 4.5 mmol/L (3.6-5.2)
[2022-12-15 05:06] LABS: ANION GAP 13.5 mmol/L (5.0-14.0)
[2022-12-15] MEDS: Sodium Chloride 0.9% 1,000 ML IV SCH ×2 (05:09→20:27)
[2022-12-15] MEDS: Aspirin 81 MG Tab.EC PO SCH ×2 (08:44→20:28)
[2022-12-15] MEDS: Pantoprazole 40 MG Tab.CR PO SCH (08:44)
[2022-12-15] MEDS: Rosuvastatin 10 MG Tab PO SCH (08:44)
[2022-12-15] MEDS: Lactobacillus Rhamnosus GG (Probiotic) Cap PO SCH ×3 (08:44→20:28)
[2022-12-15] MEDS: Lisinopril 2.5 MG Tab PO SCH (08:45)
[2022-12-15] MEDS: Gabapentin 100 MG Cap PO SCH ×2 (08:45→11:46)
[2022-12-15] MEDS: Cyanocobalamin (Vitamin B12) 1,000 MCG Tab PO SCH (08:46)
[2022-12-15] MEDS: Metoprolol Succinate 25 MG Tab.ER PO SCH (08:46)
[2022-12-15] MEDS: Vitamin B Complex Tab PO SCH (08:46)
[2022-12-15] MEDS: Linezolid 600 MG in Premix Bag 1 BAG IV SCH ×2 (08:46→20:27)
[2022-12-15] MEDS ORDERED: Gadoteridol 279.3 MG/ML 15 ML SDV IV SCH (12:00)
[2022-12-15] MEDS: Gabapentin 300 MG Cap PO SCH (20:28)
[2022-12-16] MEDS: Meropenem 1 GM in Sodium Chloride 0.9% 100 ML IV SCH ×3 (02:41→17:10)
[2022-12-16] MEDS ORDERED: Propofol 200 MG/20 ML SDV ONE ×2 (07:30→08:33)
[2022-12-16] MEDS ORDERED: fentaNYL 50 MCG/ML SDV ONE (07:30)
[2022-12-16] MEDS ORDERED: Linezolid 600 MG/300 ML Premix Bag IRR ONE (08:30)
[2022-12-16] MEDS: Lactobacillus Rhamnosus GG (Probiotic) Cap PO SCH ×3 (09:21→20:42)
[2022-12-16] MEDS: Aspirin 81 MG Tab.EC PO SCH ×2 (09:21→20:05)
[2022-12-16] MEDS: Gabapentin 100 MG Cap PO SCH ×2 (09:21→12:02)
[2022-12-16] MEDS: Metoprolol Succinate 25 MG Tab.ER PO SCH (09:22)
[2022-12-16] MEDS: Rosuvastatin 10 MG Tab PO SCH (09:22)
[2022-12-16] MEDS: Cyanocobalamin (Vitamin B12) 1,000 MCG Tab PO SCH (09:22)
[2022-12-16] MEDS: Lisinopril 2.5 MG Tab PO SCH (09:22)
[2022-12-16] MEDS: Pantoprazole 40 MG Tab.CR PO SCH (09:22)
[2022-12-16] MEDS: Vitamin B Complex Tab PO SCH (09:23)
[2022-12-16] MEDS: Linezolid 600 MG in Premix Bag 1 BAG IV SCH ×2 (09:23→20:42)
[2022-12-16] MEDS: Sodium Chloride 0.9% 1,000 ML IV SCH (11:56)
[2022-12-16] MEDS: HYDROmorphone 0.5 MG/0.5 ML Syringe IVPUSH PRN ×3 (13:21→22:20)
[2022-12-16] MEDS: Gabapentin 300 MG Cap PO SCH (20:42)
[2022-12-17] MEDS: Sodium Chloride 0.9% 1,000 ML IV SCH ×2 (00:03→10:44)
[2022-12-17] MEDS: Meropenem 1 GM in Sodium Chloride 0.9% 100 ML IV SCH ×3 (02:32→17:33)
[2022-12-17] MEDS: HYDROmorphone 0.5 MG/0.5 ML Syringe IVPUSH PRN (06:19)
[2022-12-17] MEDS: Linezolid 600 MG in Premix Bag 1 BAG IV SCH ×2 (08:15→20:51)
[2022-12-17] MEDS: Pantoprazole 40 MG Tab.CR PO SCH (08:19)
[2022-12-17] MEDS: Rosuvastatin 10 MG Tab PO SCH (08:20)
[2022-12-17] MEDS: Lactobacillus Rhamnosus GG (Probiotic) Cap PO SCH ×3 (08:20→20:51)
[2022-12-17] MEDS: Aspirin 81 MG Tab.EC PO SCH ×2 (08:21→08:43)
[2022-12-17] MEDS: Lisinopril 2.5 MG Tab PO SCH (08:21)
[2022-12-17] MEDS: Gabapentin 100 MG Cap PO SCH ×2 (08:21→10:39)
[2022-12-17] MEDS: Metoprolol Succinate 25 MG Tab.ER PO SCH (08:21)
[2022-12-17] MEDS: Cyanocobalamin (Vitamin B12) 1,000 MCG Tab PO SCH (08:22)
[2022-12-17] MEDS: Vitamin B Complex Tab PO SCH (08:22)
[2022-12-17] MEDS: Gabapentin 300 MG Cap PO SCH (20:51)
[2022-12-17 22:55] VITALS: PULSE 68
[2022-12-18] MEDS: Meropenem 1 GM in Sodium Chloride 0.9% 100 ML IV SCH ×2 (02:13→09:10)
[2022-12-18 07:59] VITALS: BP 150/72
[2022-12-18] MEDS: Lactobacillus Rhamnosus GG (Probiotic) Cap PO SCH (07:59)
[2022-12-18] MEDS: Aspirin 81 MG Tab.EC PO SCH (07:59)
[2022-12-18] MEDS: Rosuvastatin 10 MG Tab PO SCH (07:59)
[2022-12-18] MEDS: Pantoprazole 40 MG Tab.CR PO SCH (07:59)
[2022-12-18] MEDS: Gabapentin 100 MG Cap PO SCH (08:00)
[2022-12-18] MEDS: Vitamin B Complex Tab PO SCH (08:00)
[2022-12-18] MEDS: Metoprolol Succinate 25 MG Tab.ER PO SCH (08:00)
[2022-12-18] MEDS: Lisinopril 2.5 MG Tab PO SCH (08:00)
[2022-12-18] MEDS: Linezolid 600 MG in Premix Bag 1 BAG IV SCH (08:01)
[2022-12-18] MEDS: Cyanocobalamin (Vitamin B12) 1,000 MCG Tab PO SCH (08:01)
== END 2022-12-18 10:47 | disposition home or self-care (01) | DRG 629 ==
LOC: JP.ED 14:32 → JP.MS 17:31
PROVIDERS: ADMIT Internal Medicine; ATTEND Internal Medicine
PROC: 0QBN0ZZ Excision of Right Metatarsal, Open Approach (ICD-10-PCS; principal; 2022-12-16)
PROC: 0QBN0Z2 Excision of Right Metatarsal, Sesamoid Bone(s) 1st Toe, Open Approach (ICD-10-PCS; 2022-12-16)
DX: E11.69 Type 2 diabetes mellitus with other specified complication (principal); E87.1 Hypo-osmolality and hyponatremia; M86.9 Osteomyelitis, unspecified; L03.115 Cellulitis of right lower limb; L97.422 Non-pressure chronic ulcer of left heel and midfoot with fat layer exposed; E10.628 Type 1 diabetes mellitus with other skin complications; B95.62 Methicillin resistant Staphylococcus aureus infection as the cause of diseases classified elsewhere; E10.621 Type 1 diabetes mellitus with foot ulcer; Z20.822 Contact with and (suspected) exposure to COVID-19; E10.51 Type 1 diabetes mellitus with diabetic peripheral angiopathy without gangrene; I25.10 Atherosclerotic heart disease of native coronary artery without angina pectoris; I25.2 Old myocardial infarction; K21.9 Gastro-esophageal reflux disease without esophagitis; M19.90 Unspecified osteoarthritis, unspecified site; E10.40 Type 1 diabetes mellitus with diabetic neuropathy, unspecified; Z89.512 Acquired absence of left leg below knee; Z89.421 Acquired absence of other right toe(s); Z88.5 Allergy status to narcotic agent; Z79.82 Long term (current) use of aspirin; Z79.899 Other long term (current) drug therapy; Z79.4 Long term (current) use of insulin; Z95.5 Presence of coronary angioplasty implant and graft; Z90.49 Acquired absence of other specified parts of digestive tract; Z98.890 Other specified postprocedural states; Z98.1 Arthrodesis status; Z89.411 Acquired absence of right great toe; Z87.891 Personal history of nicotine dependence; Z98.84 Bariatric surgery status; Z76.89 Persons encountering health services in other specified circumstances; N18.32 Chronic kidney disease, stage 3b; I12.9 Hypertensive chronic kidney disease with stage 1 through stage 4 chronic kidney disease, or unspecified chronic kidney disease; E10.22 Type 1 diabetes mellitus with diabetic chronic kidney disease
CPT/HCPCS: 36415; 73630-26-RT; 73630-RT; 73720-26-RT; 73720-RT; 80048; 80053; 82947; 83605; 84145; 85025; 85027; 86140; 87040; 87070; 87075; 87077; 87186; 87205; 88304; 88311; 99222; 99284; 99285; A9270-GY; A9579; J1170; J2020; J2185; J2704; J3010; J3490; J7030; Q0162; U0002

== ENCOUNTER 2023-01-22 21:35 | Emergency (ER) | payer MEDICARE, BC ==
[2023-01-22 22:46] LABS: BASOPHILS ABSOLUTE AUTO 0.03 K/uL (0.00-0.10); BASOPHILS PERCENT AUTO 0.3 % (0.1-1.3); EOSINOPHILS ABSOLUTE AUTO 0.17 K/uL (0.00-0.40); EOSINOPHILS PERCENT AUTO 1.5 % (0.0-5.4); HEMATOCRIT 21.8 % (38.4-49.7); HEMOGLOBIN 7.1 g/dL (12.9-16.9); IMMATURE GRAN ABSOLUTE AUTO 0.06 K/uL (0.00-0.23); IMMATURE GRAN PERCENT AUTO 0.5 % (0.0-0.7); LYMPHOCYTES ABSOLUTE AUTO 1.06 K/uL (0.8-3.3); LYMPHOCYTES PERCENT AUTO 9.4 % (11.4-47.7); MEAN CORPUSCULAR HGB CONC 32.6 g/dL (31.6-35.5); MONOCYTES ABSOLUTE AUTO 0.56 K/uL (0.20-0.90); MONOCYTES PERCENT AUTO 4.9 % (3.3-12.6); NEUTROPHILS ABSOLUTE AUTO 9.44 K/uL (1.0-7.6); NEUTROPHILS PERCENT AUTO 83.4 % (40.0-78.1); PLATELET COUNT,PLT 148 K/uL (130-375); RED BLOOD CELL COUNT 2.37 M/uL (4.14-5.76); WHITE BLOOD CELL COUNT,WBC 11.3 K/uL (3.2-11.0)
[2023-01-22 23:02] LABS: CALCIUM 8.8 mg/dL (8.5-10.1); CREATININE 1.4 mg/dL (0.8-1.3); EST CRCL DRUG DOSING (CG) 49.97 mL/min; POTASSIUM,K 5.3 mmol/L (3.6-5.2)
[2023-01-22 23:05] LABS: ANION GAP 15.3 mmol/L (5.0-14.0)
[2023-01-22] MEDS ORDERED: Sodium Chloride 0.9% 10 ML Syringe FLUSH STA (23:19)
[2023-01-22] MEDS ORDERED: Sodium Chloride 0.9% 50 ML IV STA (23:19)
[2023-01-22] MEDS ORDERED: Iopamidol 612 MG/ML 100 ML Bottle IV STA (23:19)
[2023-01-22 23:20] LABS: BILIRUBIN,URINE NEGATIVE (NEGATIVE); GLUCOSE,URINE NEGATIVE (NEGATIVE); KETONES,URINE NEGATIVE (NEGATIVE); LEUKOCYTE ESTERASE,URINE TRACE (NEGATIVE); NITRITE,URINE NEGATIVE (NEGATIVE); OCCULT BLOOD,URINE LARGE (NEGATIVE); PROTEIN,URINE >=300 mg/dL (NEGATIVE); UROBILINOGEN,URINE 0.2 EU/dL (0.2-1.0)
[2023-01-22 23:23] LABS: COLOR,URINE RED (YELLOW)
[2023-01-22 23:24] LABS: APPEARANCE,URINE TURBID (CLEAR)
[2023-01-22 23:27] LABS: AMORPHOUS SEDIMENT,URINE NOT SEEN; BACTERIA,URINE FEW; EPITHELIAL CELLS,URINE FEW; MUCUS,URINE FEW; RBC,URINE PACKED (0-5)
[2023-01-23 08:20] VITALS: BP 154/73; PULSE 78
== END 2023-01-23 08:44 ==
LOC: JP.ED 21:35
DX: E11.9 Type 2 diabetes mellitus without complications (principal); I25.9 Chronic ischemic heart disease, unspecified; N40.1 Benign prostatic hyperplasia with lower urinary tract symptoms; R33.8 Other retention of urine; I10 Essential (primary) hypertension; N13.2 Hydronephrosis with renal and ureteral calculous obstruction; D62 Acute posthemorrhagic anemia; Z79.01 Long term (current) use of anticoagulants; I25.10 Atherosclerotic heart disease of native coronary artery without angina pectoris; K21.9 Gastro-esophageal reflux disease without esophagitis; I25.2 Old myocardial infarction; Z95.5 Presence of coronary angioplasty implant and graft; Z79.82 Long term (current) use of aspirin; Z79.4 Long term (current) use of insulin; Z79.899 Other long term (current) drug therapy; Z88.5 Allergy status to narcotic agent
CPT/HCPCS: 36415; 36430; 74177; 80048; 81001; 85025; 86850; 86900; 86901; 86920; 86922; 99284; J3490; P9016; Q9967; 99285

== ENCOUNTER 2023-01-29 16:18 | Emergency (ER) | payer MEDICARE, BC ==
[2023-01-29 19:01] VITALS: BP 125/63; PULSE 69
[2023-01-29 19:37] LABS: BASOPHILS ABSOLUTE AUTO 0.06 K/uL (0.00-0.10); BASOPHILS PERCENT AUTO 0.5 % (0.1-1.3); EOSINOPHILS ABSOLUTE AUTO 0.18 K/uL (0.00-0.40); EOSINOPHILS PERCENT AUTO 1.4 % (0.0-5.4); HEMOGLOBIN 9.2 g/dL (12.9-16.9); IMMATURE GRAN PERCENT AUTO 0.8 % (0.0-0.7); LYMPHOCYTES ABSOLUTE AUTO 1.24 K/uL (0.8-3.3); LYMPHOCYTES PERCENT AUTO 9.9 % (11.4-47.7); MEAN CORPUSCULAR HEMOGLOBIN 29.8 pg (31.6-35.5); MEAN CORPUSCULAR HGB CONC 34.1 g/dL (31.6-35.5); MEAN CORPUSCULAR VOLUME 87.4 fL (81.4-99.0); MONOCYTES ABSOLUTE AUTO 0.77 K/uL (0.20-0.90); MONOCYTES PERCENT AUTO 6.1 % (3.3-12.6); NEUTROPHILS ABSOLUTE AUTO 10.19 K/uL (1.0-7.6); NEUTROPHILS PERCENT AUTO 81.3 % (40.0-78.1); PLATELET COUNT,PLT 165 K/uL (130-375); RED BLOOD CELL COUNT 3.09 M/uL (4.14-5.76); WHITE BLOOD CELL COUNT,WBC 12.5 K/uL (3.2-11.0)
[2023-01-29 19:52] LABS: CALCIUM 9.1 mg/dL (8.5-10.1); CREATININE 1.2 mg/dL (0.8-1.3); EST CRCL DRUG DOSING (CG) 59.22 mL/min; POTASSIUM,K 5.2 mmol/L (3.6-5.2)
[2023-01-29 19:53] LABS: ANION GAP 11.2 mmol/L (5.0-14.0)
== END 2023-01-29 21:03 | disposition home or self-care (01) ==
LOC: JP.ED 16:18
DX: D64.9 Anemia, unspecified (principal); I25.10 Atherosclerotic heart disease of native coronary artery without angina pectoris; I25.2 Old myocardial infarction; E11.9 Type 2 diabetes mellitus without complications; K21.9 Gastro-esophageal reflux disease without esophagitis; Z88.5 Allergy status to narcotic agent; Z79.899 Other long term (current) drug therapy; Z79.4 Long term (current) use of insulin; Z79.82 Long term (current) use of aspirin
CPT/HCPCS: 36415; 80048; 85025; 99283; 99284

== ENCOUNTER 2023-02-08 10:39 | Inpatient (IN) | payer MEDICARE, BC ==
[2023-02-08 11:46] LABS: BASOPHILS ABSOLUTE AUTO 0.03 K/uL (0.00-0.10); BASOPHILS PERCENT AUTO 0.3 % (0.1-1.3); EOSINOPHILS ABSOLUTE AUTO 0.09 K/uL (0.00-0.40); EOSINOPHILS PERCENT AUTO 0.8 % (0.0-5.4); HEMATOCRIT 26.8 % (38.4-49.7); HEMOGLOBIN 9.1 g/dL (12.9-16.9); IMMATURE GRAN ABSOLUTE AUTO 0.06 K/uL (0.00-0.23); IMMATURE GRAN PERCENT AUTO 0.6 % (0.0-0.7); LYMPHOCYTES ABSOLUTE AUTO 0.83 K/uL (0.8-3.3); LYMPHOCYTES PERCENT AUTO 7.8 % (11.4-47.7); MEAN CORPUSCULAR HEMOGLOBIN 30.4 pg (31.6-35.5); MEAN CORPUSCULAR VOLUME 89.6 fL (81.4-99.0); MONOCYTES ABSOLUTE AUTO 0.43 K/uL (0.20-0.90); MONOCYTES PERCENT AUTO 4.1 % (3.3-12.6); NEUTROPHILS ABSOLUTE AUTO 9.17 K/uL (1.0-7.6); NEUTROPHILS PERCENT AUTO 86.4 % (40.0-78.1); PLATELET COUNT,PLT 157 K/uL (130-375); RED BLOOD CELL COUNT 2.99 M/uL (4.14-5.76); WHITE BLOOD CELL COUNT,WBC 10.6 K/uL (3.2-11.0)
[2023-02-08 12:06] LABS: A/G RATIO 0.9 (1.2-2.2); ALANINE AMINOTRANSFERASE,ALT 48 U/L (12-78); ALKALINE PHOSPHATASE 86 U/L (46-116); ASPARTATE AMNIOTRANSFERASE,AST 39 U/L (15-37); BILIRUBIN TOTAL 0.7 mg/dL (0.2-1.0); BLOOD UREA NITROGEN,BUN 33 mg/dL (7-18); CALCIUM 9.1 mg/dL (8.5-10.1); CARBON DIOXIDE,CO2 22 mmol/L (21-32); CHLORIDE,CL 98 mmol/L (100-108); CREATININE 1.7 mg/dL (0.8-1.3); EST CRCL DRUG DOSING (CG) 40.91 mL/min; ESTIMATED GFR 43 mL/min (>60); GLUCOSE RANDOM 370 mg/dL (74-106); PROTEIN TOTAL,TP 6.5 g/dL (6.4-8.2)
[2023-02-08 12:11] LABS: ANION GAP 15.4 mmol/L (5.0-14.0); SODIUM,NA 128 mmol/L (140-148)
[2023-02-08 12:14] LABS: POTASSIUM,K 7.4 mmol/L (3.6-5.2)
[2023-02-08 12:20] LABS: APPEARANCE,URINE TURBID (CLEAR); BILIRUBIN,URINE NEGATIVE (NEGATIVE); COLOR,URINE YELLOW (YELLOW); GLUCOSE,URINE NEGATIVE (NEGATIVE); KETONES,URINE NEGATIVE (NEGATIVE); LEUKOCYTE ESTERASE,URINE LARGE (NEGATIVE); NITRITE,URINE POSITIVE (NEGATIVE); OCCULT BLOOD,URINE MODERATE (NEGATIVE); PROTEIN,URINE >=300 mg/dL (NEGATIVE); UROBILINOGEN,URINE 0.2 EU/dL (0.2-1.0)
[2023-02-08 12:24] LABS: AMORPHOUS SEDIMENT,URINE RARE; BACTERIA,URINE MANY; EPITHELIAL CELLS,URINE NOT SEEN; MUCUS,URINE NOT SEEN; WBC,URINE PACKED (0-5)
[2023-02-08] MEDS ORDERED: Sodium Chloride 0.9% 1,000 ML IV SCH (12:30)
[2023-02-08] MEDS ORDERED: cefTRIAXone 1 GM in Sodium Chloride 0.9% 50 ML IV ONE (12:46)
[2023-02-08] MEDS ORDERED: Sodium Polystyrene Sulfonate 15 GM/60 ML Susp 60 ML Bot PO ONE (14:11)
[2023-02-08] MEDS ORDERED: Meropenem 1 GM in Sodium Chloride 0.9% 100 ML IV SCH (14:15)
[2023-02-08] MEDS ORDERED: Ondansetron 4 MG Tab.DIS PO PRN (15:26)
[2023-02-08] MEDS ORDERED: Ondansetron 4 MG/2 ML SDV IV PRN (15:26)
[2023-02-08] MEDS ORDERED: Acetaminophen 325 MG Tab PO PRN (15:26)
[2023-02-08] MEDS ORDERED: Sennosides/Docusate Sodium 50-8.6 MG Tab PO PRN (15:26)
[2023-02-08] MEDS ORDERED: Magnesium Hydroxide 400 MG/5 ML Susp 30 ML Cup PO PRN (15:26)
[2023-02-08] MEDS: Sodium Chloride 0.9% 1,000 ML IV SCH (17:14)
[2023-02-08] MEDS: Lactobacillus Rhamnosus GG (Probiotic) Cap PO SCH (20:41)
[2023-02-08] MEDS: Gabapentin 300 MG Cap PO SCH (20:41)
[2023-02-09] MEDS ORDERED: Meropenem 1 GM in Sodium Chloride 0.9% 100 ML IV SCH (02:00)
[2023-02-09] MEDS: Sodium Chloride 0.9% 1,000 ML IV SCH (02:02)
[2023-02-09 05:39] LABS: HEMATOCRIT 23.7 % (38.4-49.7); HEMOGLOBIN 7.9 g/dL (12.9-16.9); MEAN CORPUSCULAR HEMOGLOBIN 29.6 pg (31.6-35.5); MEAN CORPUSCULAR HGB CONC 33.3 g/dL (31.6-35.5); MEAN CORPUSCULAR VOLUME 88.8 fL (81.4-99.0); RED BLOOD CELL COUNT 2.67 M/uL (4.14-5.76); WHITE BLOOD CELL COUNT,WBC 7.2 K/uL (3.2-11.0)
[2023-02-09 06:05] LABS: CALCIUM 8.5 mg/dL (8.5-10.1); CREATININE 1.1 mg/dL (0.8-1.3); EST CRCL DRUG DOSING (CG) 63.6 mL/min; MAGNESIUM 1.7 mg/dL (1.8-2.4)
[2023-02-09] MEDS ORDERED: INSULIN PUMP SUBCUT PRN (08:07)
[2023-02-09] MEDS ORDERED: Non-Formulary Medication 1 Each (Rosuvastatin [Crestor] 20 MG Tablet) PO SCH (09:00)
[2023-02-09] MEDS ORDERED: Pantoprazole 40 MG Tab.CR PO SCH (09:00)
[2023-02-09] MEDS ORDERED: Magnesium Sulfate/Water 2 GM in Premix Bag 1 BAG IV ONE (09:00)
[2023-02-09] MEDS ORDERED: Non-Formulary Medication 1 Each (Cyanocobalamin (Vitamin B-12) [Vitamin B-12] 1,000 MCG Ta PO SCH (09:00)
[2023-02-09] MEDS: Meropenem 1 GM in Sodium Chloride 0.9% 100 ML IV SCH ×2 (10:20→17:54)
[2023-02-09] MEDS: Vitamin B Complex Tab PO SCH (10:27)
[2023-02-09] MEDS: Gabapentin 100 MG Cap PO SCH (10:27)
[2023-02-09] MEDS: Lactobacillus Rhamnosus GG (Probiotic) Cap PO SCH ×4 (10:27→20:20)
[2023-02-09] MEDS: Rosuvastatin 10 MG Tab PO SCH (10:27)
[2023-02-09] MEDS: Tamsulosin 0.4 MG Cap.ER PO SCH (10:28)
[2023-02-09] MEDS: Pantoprazole 40 MG Tab.CR PO SCH (10:28)
[2023-02-09] MEDS: Aspirin 81 MG Tab.EC PO SCH (10:29)
[2023-02-09] MEDS: Metoprolol Succinate 25 MG Tab.ER PO SCH (10:29)
[2023-02-09] MEDS: Clopidogrel 75 MG Tab PO SCH (10:30)
[2023-02-09] MEDS: Cyanocobalamin (Vitamin B12) 1,000 MCG Tab PO SCH (10:32)
[2023-02-09] MEDS ORDERED: Gabapentin 100 MG Cap PO SCH (11:00)
[2023-02-09] MEDS: Gabapentin 300 MG Cap PO SCH (20:20)
[2023-02-10] MEDS: Meropenem 1 GM in Sodium Chloride 0.9% 100 ML IV SCH (01:35)
[2023-02-10 04:38] LABS: HEMATOCRIT 23.1 % (38.4-49.7); HEMOGLOBIN 7.8 g/dL (12.9-16.9); MEAN CORPUSCULAR HEMOGLOBIN 29.9 pg (31.6-35.5); MEAN CORPUSCULAR HGB CONC 33.8 g/dL (31.6-35.5); MEAN CORPUSCULAR VOLUME 88.5 fL (81.4-99.0); RED BLOOD CELL COUNT 2.61 M/uL (4.14-5.76); WHITE BLOOD CELL COUNT,WBC 6.1 K/uL (3.2-11.0)
[2023-02-10 05:04] VITALS: BP 120/56; PULSE 66
[2023-02-10 05:14] LABS: CALCIUM 8.7 mg/dL (8.5-10.1); EST CRCL DRUG DOSING (CG) 69.96 mL/min; POTASSIUM,K 4.6 mmol/L (3.6-5.2)
[2023-02-10 05:23] LABS: ANION GAP 10.6 mmol/L (5.0-14.0)
[2023-02-10] MEDS ORDERED: Ciprofloxacin 500 MG Tab PO SCH (09:00)
[2023-02-10] MEDS: Lactobacillus Rhamnosus GG (Probiotic) Cap PO SCH (09:29)
[2023-02-10] MEDS: Clopidogrel 75 MG Tab PO SCH (09:29)
[2023-02-10] MEDS: Gabapentin 100 MG Cap PO SCH (09:29)
[2023-02-10] MEDS: Cyanocobalamin (Vitamin B12) 1,000 MCG Tab PO SCH (09:29)
[2023-02-10] MEDS: Metoprolol Succinate 25 MG Tab.ER PO SCH (09:30)
[2023-02-10] MEDS: Pantoprazole 40 MG Tab.CR PO SCH (09:30)
[2023-02-10] MEDS: Tamsulosin 0.4 MG Cap.ER PO SCH (09:30)
[2023-02-10] MEDS: Vitamin B Complex Tab PO SCH (09:30)
[2023-02-10] MEDS: Aspirin 81 MG Tab.EC PO SCH (09:31)
[2023-02-10] MEDS: Rosuvastatin 10 MG Tab PO SCH (09:31)
== END 2023-02-10 11:10 | disposition home or self-care (01) | DRG 699 ==
LOC: JP.ED 10:39 → JP.ICU 14:13
PROVIDERS: ADMIT Internal Medicine; ATTEND Internal Medicine
DX: T83.511A Infection and inflammatory reaction due to indwelling urethral catheter, initial encounter (principal); N17.9 Acute kidney failure, unspecified; N39.0 Urinary tract infection, site not specified; E87.5 Hyperkalemia; R31.9 Hematuria, unspecified; E11.9 Type 2 diabetes mellitus without complications; Z20.822 Contact with and (suspected) exposure to COVID-19; M19.90 Unspecified osteoarthritis, unspecified site; N40.1 Benign prostatic hyperplasia with lower urinary tract symptoms; R33.8 Other retention of urine; E11.51 Type 2 diabetes mellitus with diabetic peripheral angiopathy without gangrene; I73.9 Peripheral vascular disease, unspecified; E11.65 Type 2 diabetes mellitus with hyperglycemia; B96.89 Other specified bacterial agents as the cause of diseases classified elsewhere; D50.0 Iron deficiency anemia secondary to blood loss (chronic); Z88.5 Allergy status to narcotic agent; I25.10 Atherosclerotic heart disease of native coronary artery without angina pectoris; K21.9 Gastro-esophageal reflux disease without esophagitis; Z79.4 Long term (current) use of insulin; Z79.02 Long term (current) use of antithrombotics/antiplatelets; I25.2 Old myocardial infarction; Z79.82 Long term (current) use of aspirin; Z98.49 Cataract extraction status, unspecified eye; Z98.890 Other specified postprocedural states; Z90.49 Acquired absence of other specified parts of digestive tract; Z98.1 Arthrodesis status; Z79.899 Other long term (current) drug therapy; Z95.5 Presence of coronary angioplasty implant and graft; Z89.512 Acquired absence of left leg below knee; Z87.891 Personal history of nicotine dependence; Y84.6 Urinary catheterization as the cause of abnormal reaction of the patient, or of later complication, without mention of misadventure at the time of the procedure
CPT/HCPCS: 36415; 80053; 81001; 84132; 85025; 86140; 87086; 87088; 87186; 96360; 96361; 99285; J7030; U0002; 80048; 83735; 85027; 93010; 99222; 99232; 99238; A9270-GY; J2185; J3475; J3490

== ENCOUNTER 2023-03-28 08:20 | Emergency (ER) | payer MEDICARE, BC ==
[2023-03-28 08:30] VITALS: BP 114/70; PULSE 68
[2023-03-28 09:18] LABS: CREATININE 1.3 mg/dL (0.7-1.3); EST CRCL DRUG DOSING (CG) 57.18 mL/min
== END 2023-03-28 09:28 | disposition home or self-care (01) ==
LOC: JP.ED 08:20
DX: T83.091A Other mechanical complication of indwelling urethral catheter, initial encounter (principal); N40.1 Benign prostatic hyperplasia with lower urinary tract symptoms; E11.9 Type 2 diabetes mellitus without complications; D64.9 Anemia, unspecified; I25.9 Chronic ischemic heart disease, unspecified; I73.9 Peripheral vascular disease, unspecified; I25.10 Atherosclerotic heart disease of native coronary artery without angina pectoris; I25.2 Old myocardial infarction; Z79.899 Other long term (current) drug therapy; Z88.5 Allergy status to narcotic agent
CPT/HCPCS: 36415; 82565; 99284

== ENCOUNTER 2023-04-07 23:18 | Emergency (ER) | payer MEDICARE, BC ==
[2023-04-08] MEDS ORDERED: HYDROmorphone 0.5 MG/0.5 ML Syringe IVPUSH ONE ×2 (04:31→07:59)
[2023-04-08 06:35] VITALS: BP 155/68; PULSE 79
== END 2023-04-08 08:10 ==
LOC: JP.ED 23:18
DX: S72.012A Unspecified intracapsular fracture of left femur, initial encounter for closed fracture (principal); I25.10 Atherosclerotic heart disease of native coronary artery without angina pectoris; I25.2 Old myocardial infarction; K21.9 Gastro-esophageal reflux disease without esophagitis; E11.9 Type 2 diabetes mellitus without complications; Z88.5 Allergy status to narcotic agent; Z79.82 Long term (current) use of aspirin; Z79.4 Long term (current) use of insulin; Z79.899 Other long term (current) drug therapy; Z79.02 Long term (current) use of antithrombotics/antiplatelets; W19.XXXA Unspecified fall, initial encounter
CPT/HCPCS: 73502; 73700; 96374; 96376; 99285; J0878; J1170; J3490

== ENCOUNTER 2023-12-25 02:57 | Emergency (ER) | payer MEDICARE, BC ==
[2023-12-25 03:19] LABS: BASOPHILS ABSOLUTE AUTO 0.03 K/uL (0.00-0.10); BASOPHILS PERCENT AUTO 0.1 % (0.1-1.3); EOSINOPHILS ABSOLUTE AUTO 0.01 K/uL (0.00-0.40); HEMATOCRIT 44.4 % (38.4-49.7); HEMOGLOBIN 14.5 g/dL (12.9-16.9); IMMATURE GRAN ABSOLUTE AUTO 0.23 K/uL (0.00-0.23); IMMATURE GRAN PERCENT AUTO 1.1 % (0.0-0.7); LYMPHOCYTES ABSOLUTE AUTO 0.69 K/uL (0.8-3.3); LYMPHOCYTES PERCENT AUTO 3.4 % (11.4-47.7); MEAN CORPUSCULAR HEMOGLOBIN 32.9 pg (31.6-35.5); MEAN CORPUSCULAR HGB CONC 32.7 g/dL (31.6-35.5); MEAN CORPUSCULAR VOLUME 100.7 fL (81.4-99.0); MONOCYTES ABSOLUTE AUTO 1.66 K/uL (0.20-0.90); MONOCYTES PERCENT AUTO 8.3 % (3.3-12.6); NEUTROPHILS ABSOLUTE AUTO 17.48 K/uL (1.0-7.6); NEUTROPHILS PERCENT AUTO 87.1 % (40.0-78.1); PLATELET COUNT,PLT 269 K/uL (130-375); RED BLOOD CELL COUNT 4.41 M/uL (4.14-5.76); WHITE BLOOD CELL COUNT,WBC 20.1 K/uL (3.2-11.0)
[2023-12-25 03:30] LABS: BASE EXCESS ARTERIAL -27.4 mm/L; CARBOXYHEMOGLOBIN 1.5 % (0.0-1.6); METHEMOGLOBIN 1.7 %; O2 SATURATION ARTERIAL 86.6 % (95.0-98.0); OXYHEMOGLOBIN 83.8 %; PO2 ARTERIAL 61.8 mmHg (75.0-100.0); TOTAL HEMOGLOBIN 14.7 g/dL (13.5-18.0)
[2023-12-25 03:30] LABS: ALANINE AMINOTRANSFERASE,ALT 42 U/L (12-78); ALBUMIN 3.5 g/dL (3.4-5.0); ALKALINE PHOSPHATASE 110 U/L (46-116); ASPARTATE AMNIOTRANSFERASE,AST 33 U/L (15-37); BILIRUBIN TOTAL 1.1 mg/dL (0.2-1.0); CHLORIDE,CL 79 mmol/L (100-108); EST CRCL DRUG DOSING (CG) 21.56 mL/min; ESTIMATED GFR 18 mL/min (>60)
[2023-12-25 03:40] LABS: ANION GAP 37.3 mmol/L (5.0-14.0)
[2023-12-25 03:43] LABS: GLUCOSE RANDOM 1127 mg/dL (74-106); POTASSIUM,K 8.3 mmol/L (3.6-5.2); SODIUM,NA 113 mmol/L (140-148)
[2023-12-25 03:44] LABS: BLOOD UREA NITROGEN,BUN 76 mg/dL (7-18); CREATININE 3.5 mg/dL (0.8-1.3)
[2023-12-25 03:45] LABS: BICARBONATE,ARTERIAL 3.8 mmol/L (22.0-26.0)
[2023-12-25 03:46] LABS: PCO2 ARTERIAL 15.1 mmHg (35.0-42.0)
[2023-12-25 04:00] LABS: MAGNESIUM 2.6 mg/dL (1.8-2.4)
[2023-12-25] MEDS: Calcium Gluconate 10% 1 GM/10 ML SDV IVPUSH ONE (04:00)
[2023-12-25 04:09] LABS: APPEARANCE,URINE SLIGHTLY CLOUDY (CLEAR); BILIRUBIN,URINE NEGATIVE (NEGATIVE); COLOR,URINE YELLOW (YELLOW); GLUCOSE,URINE 500 mg/dL (NEGATIVE); KETONES,URINE 40 mg/dL (NEGATIVE); LEUKOCYTE ESTERASE,URINE TRACE (NEGATIVE); NITRITE,URINE POSITIVE (NEGATIVE); OCCULT BLOOD,URINE SMALL (NEGATIVE); PROTEIN,URINE 30 mg/dL (NEGATIVE); UROBILINOGEN,URINE 0.2 EU/dL (0.2-1.0)
[2023-12-25 04:11] LABS: PHOSPHORUS 8.8 mg/dL (2.5-4.9)
[2023-12-25] MEDS: Sodium Chloride 0.9% 1,000 ML IV SCH (04:11)
[2023-12-25 04:15] LABS: AMORPHOUS SEDIMENT,URINE NOT SEEN; BACTERIA,URINE MANY; EPITHELIAL CELLS,URINE FEW; MUCUS,URINE FEW; WBC,URINE 20-30 (0-5)
[2023-12-25] MEDS: cefTRIAXone 1 GM in Sodium Chloride 0.9% 50 ML IV ONE (04:44)
[2023-12-25 04:54] VITALS: PULSE 85
[2023-12-25 05:23] LABS: CHLORIDE,CL 81 mmol/L (100-108); EST CRCL DRUG DOSING (CG) 21.56 mL/min; ESTIMATED GFR 18 mL/min (>60)
[2023-12-25 05:35] LABS: ANION GAP 36.2 mmol/L (5.0-14.0); BLOOD UREA NITROGEN,BUN 78 mg/dL (7-18); POTASSIUM,K 7.2 mmol/L (3.6-5.2); SODIUM,NA 115 mmol/L (140-148)
[2023-12-25 05:36] LABS: CREATININE 3.5 mg/dL (0.8-1.3); GLUCOSE RANDOM 1012 mg/dL (74-106)
[2023-12-25 06:40] VITALS: BP 104/52
[2023-12-26 09:13] LABS: CARBON DIOXIDE,CO2 < 5 mmol/L (21-32)
[2023-12-26 09:14] LABS: CARBON DIOXIDE,CO2 < 5 mmol/L (21-32)
== END 2023-12-25 06:51 | disposition critical access hospital (66) ==
LOC: JP.ED 02:57
DX: E10.10 Type 1 diabetes mellitus with ketoacidosis without coma (principal); I25.10 Atherosclerotic heart disease of native coronary artery without angina pectoris; Z95.5 Presence of coronary angioplasty implant and graft; K21.9 Gastro-esophageal reflux disease without esophagitis; Z87.891 Personal history of nicotine dependence; Z88.5 Allergy status to narcotic agent; Z79.82 Long term (current) use of aspirin; Z79.899 Other long term (current) drug therapy; Z79.4 Long term (current) use of insulin
CPT/HCPCS: 36415; 36600; 71045; 80048; 80053; 81001; 82009; 82803; 82947; 83605; 83735; 84100; 84132; 84145; 85025; 87040; 87086; 93005; 96361; 96365; 96375; 99285; J0612; J0696; J1815; J3490; J7030; 87088; 87186

== ENCOUNTER 2024-02-04 14:19 | Emergency (ER) | payer MEDICARE, BC ==
[2024-02-04 15:03] VITALS: BP 136/74; PULSE 63
== END 2024-02-04 15:58 | disposition home or self-care (01) ==
LOC: JP.ED 14:19
DX: Z96.0 Presence of urogenital implants (principal); E11.9 Type 2 diabetes mellitus without complications; Z88.5 Allergy status to narcotic agent; Z79.4 Long term (current) use of insulin; Z79.82 Long term (current) use of aspirin; Z79.899 Other long term (current) drug therapy; Z86.16 Personal history of COVID-19; Z90.49 Acquired absence of other specified parts of digestive tract
CPT/HCPCS: 99283

== ENCOUNTER 2025-03-22 19:33 | Emergency (ER) | payer MEDICARE, BC ==
[2025-03-22] MEDS: Lactated Ringers 1,000 ML IV SCH (20:56)
[2025-03-22 21:00] LABS: BASOPHILS ABSOLUTE AUTO 0.05 K/uL (0.00-0.10); BASOPHILS PERCENT AUTO 0.5 % (0.1-1.3); EOSINOPHILS ABSOLUTE AUTO 0.07 K/uL (0.00-0.40); EOSINOPHILS PERCENT AUTO 0.7 % (0.0-5.4); IMMATURE GRAN ABSOLUTE AUTO 0.05 K/uL (0.00-0.23); IMMATURE GRAN PERCENT AUTO 0.5 % (0.0-0.7); LYMPHOCYTES ABSOLUTE AUTO 1.14 K/uL (0.8-3.3); LYMPHOCYTES PERCENT AUTO 10.8 % (11.4-47.7); MONOCYTES ABSOLUTE AUTO 1.16 K/uL (0.20-0.90); MONOCYTES PERCENT AUTO 11.0 % (3.3-12.6); NEUTROPHILS ABSOLUTE AUTO 8.10 K/uL (1.0-7.6); NEUTROPHILS PERCENT AUTO 76.5 % (40.0-78.1); PLATELET COUNT,PLT 212 K/uL (130-375); RED BLOOD CELL COUNT 3.79 M/uL (4.14-5.76); WHITE BLOOD CELL COUNT,WBC 10.6 K/uL (3.2-11.0)
[2025-03-22 21:20] LABS: A/G RATIO 0.9 (1.2-2.2); ALANINE AMINOTRANSFERASE,ALT 38 U/L (12-78); ASPARTATE AMNIOTRANSFERASE,AST 24 U/L (15-37); BILIRUBIN TOTAL 1.2 mg/dL (0.2-1.0); BLOOD UREA NITROGEN,BUN 13 mg/dL (7-18); CARBON DIOXIDE,CO2 27 mmol/L (21-32); CHLORIDE,CL 98 mmol/L (100-108); CREATININE 1.4 mg/dL (0.8-1.3); EST CRCL DRUG DOSING (CG) 51.58 mL/min; ESTIMATED GFR 53 mL/min (>60); GLUCOSE RANDOM 221 mg/dL (74-106); POTASSIUM,K 4.2 mmol/L (3.6-5.2); PROTEIN TOTAL,TP 6.2 g/dL (6.4-8.2); SODIUM,NA 134 mmol/L (140-148)
[2025-03-22 21:24] LABS: LACTIC ACID 1.5 mmol/L (0.4-2.0)
[2025-03-22 21:25] LABS: APPEARANCE,URINE SLIGHTLY CLOUDY (CLEAR); GLUCOSE,URINE 100 mg/dL (NEGATIVE); OCCULT BLOOD,URINE NEGATIVE (NEGATIVE)
[2025-03-22 21:40] LABS: SQUAMOUS EPITHELIAL CELLS,UR RARE /HPF; UROTHELIAL CELLS,URINE NOT SEEN /HPF
[2025-03-22 21:59] LABS: CORONAVIRUS COVID-19 NAA NEGATIVE (NEGATIVE); INFLUENZA A NAA NEGATIVE (NEGATIVE); INFLUENZA B NAA NEGATIVE (NEGATIVE); RESPIRATORY SYNCYTIAL VIR NAA NEGATIVE (NEGATIVE)
[2025-03-23] VITALS: BP 115/56; PULSE 62
== END 2025-03-23 00:13 | disposition home or self-care (01) ==
LOC: JP.ED 19:33
DX: N30.00 Acute cystitis without hematuria (principal); I25.2 Old myocardial infarction; I25.10 Atherosclerotic heart disease of native coronary artery without angina pectoris; E11.9 Type 2 diabetes mellitus without complications; K21.9 Gastro-esophageal reflux disease without esophagitis; Z79.899 Other long term (current) drug therapy; Z88.8 Allergy status to other drugs, medicaments and biological substances; Z86.16 Personal history of COVID-19; Z90.49 Acquired absence of other specified parts of digestive tract
CPT/HCPCS: 36415; 80053; 81001; 83605; 85025; 87040; 87086; 87088; 87186; 87637; 96361; 96365; 99283; J0696; J7120